=== PATIENT | female | born 1955 | race Caucasian/White ===

== ENCOUNTER 2017-06-25 02:21 | Emergency (ER) | payer OTHER, SELFPAY ==
[2017-06-25 02:21] VITALS: BP 227/101; PULSE 123; RESP 20; TEMP 39.1; O2SAT 95; BMI 38.7
[2017-06-25] MEDS: 0.9% Normal Saline 1,000 ML 1000 ML IV (02:49)
--- NOTE | 2017-06-25 02:50 | RAD_ITS ---
STUDY: X-RAY CHEST REASON FOR EXAM: Female, 61 years old. SOB TECHNIQUE: Single frontal view of the chest. COMPARISON: 06/14/2016 FINDINGS: The lungs are clear and expanded. There is no demonstrated pleural abnormality. Normal size heart. Normal mediastinum and chelo. Normal visualized pulmonary arteries. Normal visualized aortic arch and descending thoracic aorta. There are diffuse degenerative changes of the visualized thoracic spine. Left shoulder calcific tendinitis. There is no demonstrated abnormality of the visualized soft tissue structures of the upper abdomen. RAD/Chest 1 View (Portable) IMPRESSION: No acute pulmonary findings. Electronically Signed: Goyo Roldan MD at 3:26 EST Tel , Service support ,
[2017-06-25] MEDS: Ibuprofen 200 MG Tablet 400 MG PO (02:52)
[2017-06-25 02:54] LABS: Absolute Lymphocyte Count 1.61 X10^3/ul (0.83-4.51); Absolute Neutrophil Count 14.2 X10^3/uL (2.0-7.7); Basophil# 0.05 X10^3/uL; Basophil% 0.3 % (0-1); Eosinophil# 0.11 X10^3/uL; Eosinophils% 0.6 % (0-5); Hematocrit 40.6 % (37-47); Hemoglobin 13.8 g/dl (12.0-15.0); Lymphocyte # 1.61 X10^3/ul (4.0); Lymphocyte % 9.3 % (19-41); Mean Corpuscular Hgb 29.3 pg (27.0-32.0); Mean Corpuscular Volume 86.2 fL (81-99); Mean Platelet Vol. 9.4 fl (6.2-12.0); Monocyte# 1.34 X10^3/uL; Monocyte% 7.7 % (0-10); Neutrophil # 14.22 X10^3/uL (2.7-7.7); Neutrophil % 81.9 % (47-70); Platelet Count 297 K/mm3 (150-450); Red Blood Count 4.71 M/mm3 (4.2-5.4); White Blood Count 17.4 K/mm3 (4.4-11.0)
[2017-06-25 03:06] LABS: Anion Gap 11 (5-15); BUN 16 mg/dL (7-18); BUN/Creat Ratio 18.2 RATIO (10-20); Calcium,Total 9.2 mg/dL (8.5-10.1); Chloride 104 mmol/L (98-107); Creatinine, Serum 0.88 mg/dL (0.55-1.02); EST Glomerular Filtration Rate 70 mL/min (>60); Est Glom Filt Rate - Afr Amer 84 mL/min (>60); Estimated Creatinine Clearance 55.53 ml/min; Glucose 202 mg/dL (74-106); Sodium Level 137 mmol/L (136-145)
[2017-06-25 03:34] LABS: POSITIVE COUNT NO; POSITIVE DIFFERENTIAL NO; POSITIVE MORPHOLOGY NO
--- NOTE | 2017-06-25 03:46 | ED.DCSUM_ITS ---
- ER Visit Summary Date of Service: 06/25/17 Chief Complaint: Cough History of Present Illness: The patient is a 61 F with a cough for 2 days. This is associated with fever, body aches, and nausea. Nothing seems to make it better or worse. It came on gradually. She does have a history of diabetes , hypothyroidism, and rheumatoid arthritis. She takes Humira. Denies headache or change in mental status. Denies stiff neck. Denies rash. She has pain in her hands from RA, but denies any other joint pain. Denies chest pain. Denies back pain. Denies abdominal pain, nausea, vomiting, or diarrhea. Denies any urinary symptoms. Physical Examination: 102.3. Heart rate 123 and respiratory rate 20. Pulse ox 95% on room air. Blood pressure 227/101. Skin appears flushed. Patient appears uncomfortable but not toxic or in distress. Heart tachycardic but regular. Lungs clear throughout all chen. Moves all extremities. No rash. Alert and oriented. Test Results: White count 17.4. Glucose 202. Influenza test negative. Chest x -ray showed no acute findings. Emergency Department Course and Treatment: I initially suspected influenza and other viral respiratory diseases. The symptoms came on fairly abruptly with cough, fever, and aches. However, her influenza test was negative. She was treated with Motrin and her fever broke. I also gave her a fluid bolus. After about 300 cc, her heart rate is 100. We will continue the rest of the liter. Because of her history of Humira use, I did check a chest x-ray and lab work. She has a leukocytosis. Otherwise labs are unremarkable. Chest x-ray showed no acute findings and was similar to her previous x-ray. I reevaluated the patient. Her fever broke. Her blood pressure was 168/93. Heart rate was 100. She felt much better. I advised her that it sounds like her symptoms are all respiratory in nature, and this is still likely viral. I advised her that there could be other sources of infection, but the patient declined further sepsis testing like cultures and urinalysis. The patient would like to go home, she said she did not even want to come in tonight. I believe this is reasonable as she understands the risks. She seems to be doing better. We will cover with azithromycin. She may use Motrin for fever. Stay hydrated. Risks and warning signs were discussed. She can develop other infections including fungal infections. She can develop infections at other sites. Sepsis can be life-threatening. She will follow-up with her doctor early next week. If she is getting worse though, she will come back to the ER for further evaluation as soon as possible. Treatment Plan: As above Disposition: Discharged Impression: 1. Flu-like illness This note was generated with [employer] dictation software. It may contain incorrect words, spelling, and punctuation that were not noted in review of the chart prior to signing ED Disposition - Plan for ED Patient: Chief Complaint: Cold Sx Instructions: ED Upper Resp Infec Abx Tx Prescriptions: Azithromycin 250 mg PO DAILY #4 tab Referrals: Jerald Rao MD [Primary Care Provider] -
[2017-06-25] MEDS: Azithromycin 250 MG Tablet 500 MG PO (03:54)
[2017-06-25 04:21] VITALS: BP 157/56; PULSE 102; RESP 20; TEMP 38.3; O2SAT 95
== END 2017-06-25 04:22 | disposition home or self-care (01) ==
PROVIDERS: Emergency Provider Emergency Medicine; Family Provider Family Medicine; PCP Family Medicine
DX: R50.9 Fever, unspecified (principal); R05 Cough; R11.0 Nausea; M79.1 Myalgia; E11.9 Type 2 diabetes mellitus without complications; E03.9 Hypothyroidism, unspecified; K76.0 Fatty (change of) liver, not elsewhere classified; M06.9 Rheumatoid arthritis, unspecified; Z79.4 Long term (current) use of insulin; Z79.84 Long term (current) use of oral hypoglycemic drugs; Z79.899 Other long term (current) drug therapy
CPT/HCPCS: 71045; 80048; 85025; 87804; 96360; 96361; 99285; J7030; A4216

== ENCOUNTER → 2017-07-19 07:04 | Outpatient (CLI) | payer OTHER, SELFPAY ==
[2017-07-19 11:06] LABS: Microalbumin,Random Urine 32.9 mg/L (NO RANGE EST.); Microalbumin:Creatinine Ratio 29.6 mg/g CRE (<30 mg/g CRE)
[2017-07-19 11:10] LABS: ALB/GLOB Ratio 0.8 RATIO (0.9-2.4); AST(SGOT) 54 U/L (15-37); Alanine Aminotransfer ALT/SGPT 88 U/L (13-56); Albumin, Serum 3.5 g/dL (3.2-5.0); Alkaline Phosphatase 79 U/L (45-117); Anion Gap 10 (5-15); BUN 14 mg/dL (7-18); BUN/Creat Ratio 18.2 RATIO (10-20); Calcium,Total 8.8 mg/dL (8.5-10.1); Chloride 107 mmol/L (98-107); Cholesterol 235 mg/dL (200); Creatinine, Serum 0.77 mg/dL (0.55-1.02); EST Glomerular Filtration Rate 81 mL/min (>60); Est Glom Filt Rate - Afr Amer 98 mL/min (>60); Globulin 4.3 g/dL (2.2-4.2); Glucose 132 mg/dL (74-106); High Density Lipoprotein 58 mg/dL; Potassium 3.9 mmol/L (3.5-5.1); Protein, Total 7.8 g/dL (6.4-8.2); Sodium Level 139 mmol/L (136-145); Triglycerides 155 mg/dL; Very Low Density Lipoprotein 31 mg/dL (5-40)
[2017-07-19 12:09] LABS: Hemoglobin A1c 7.5 % (4.2-6.3)
== END ==
PROVIDERS: Family Provider Family Medicine; PCP Family Medicine; Visit Provider Internal Medicine Endocrinology, Diabetes & Metabolism
DX: E11.65 Type 2 diabetes mellitus with hyperglycemia (principal); E78.2 Mixed hyperlipidemia; C73 Malignant neoplasm of thyroid gland
CPT/HCPCS: 36415; 80053; 80061; 82043; 82570; 83036; 84443

== ENCOUNTER → 2017-08-10 07:17 | Outpatient (CLI) | payer OTHER, SELFPAY ==
[2017-08-10 10:49] LABS: AST(SGOT) 25 U/L (15-37); Alanine Aminotransfer ALT/SGPT 50 U/L (13-56)
== END ==
PROVIDERS: Family Provider Family Medicine; PCP Family Medicine; Visit Provider Nurse Practitioner Adult Health
DX: E11.65 Type 2 diabetes mellitus with hyperglycemia (principal)
CPT/HCPCS: 36415; 84450; 84460

== ENCOUNTER → 2017-09-14 15:55 | Outpatient (CLI) | payer OTHER, SELFPAY ==
--- NOTE | 2017-09-14 15:57 | CT_ITS ---
STUDY: CT BRAIN WITHOUT CONTRAST REASON FOR EXAM: Female, 61 years old. The disturbance. Headache. Rheumatoid arthritis. Diabetes. RADIATION DOSAGE (If Supplied By Facility): CTDIvol = ( 44.99 ) mGy, DLP = ( 745.49 ) mGycm TECHNIQUE: Transaxial CT imaging of the brain was performed without administration of intravenous contrast material. Individualized dose optimization techniques were used for this CT. COMPARISON: March 28, 2006 FINDINGS: Normal soft tissue structures. Normal calvarium. Normal size ventricles and extra-axial spaces for the patient's age. Normal white matter tracts of the cerebral hemispheres. Normal basal ganglia and thalami. Normal brainstem. Normal cerebellum. There is no intracranial hemorrhage. There are no findings of an acute ischemic infarction. Normal visualized paranasal sinuses. CT/Brain/Head without Contrast IMPRESSION: Normal unenhanced CT scan of the brain. Electronically Signed: Kalen Huerta MD at 22:22 EDT , Service support ,
== END ==
PROVIDERS: Family Provider Family Medicine; PCP Family Medicine; Visit Provider Family Medicine
DX: R26.9 Unspecified abnormalities of gait and mobility (principal); Z85.850 Personal history of malignant neoplasm of thyroid; R51 Headache
CPT/HCPCS: 70450

== ENCOUNTER 2017-09-15 11:57 | Emergency (ER) | payer OTHER, SELFPAY ==
[2017-09-15 11:58] VITALS: BP 161/91; PULSE 100; RESP 18; TEMP 36.7; O2SAT 96; BMI 39.4
[2017-09-15 12:37] VITALS: BP 183/88; PULSE 93; RESP 18; O2SAT 97
[2017-09-15 12:58] LABS: Absolute Lymphocyte Count 3.26 X10^3/ul (0.83-4.51); Absolute Neutrophil Count 6.7 X10^3/uL (2.0-7.7); Basophil# 0.06 X10^3/uL; Basophil% 0.5 % (0-1); Eosinophil# 0.47 X10^3/uL; Eosinophils% 4.1 % (0-5); Hematocrit 41.6 % (37-47); Hemoglobin 13.8 g/dl (12.0-15.0); Lymphocyte # 3.26 X10^3/ul (4.0); Lymphocyte % 28.8 % (19-41); Mean Corp Hgb Conc 33.2 g/gl (32-36); Mean Corpuscular Hgb 28.2 pg (27.0-32.0); Mean Corpuscular Volume 85.1 fL (81-99); Mean Platelet Vol. 9.3 fl (6.2-12.0); Monocyte# 0.88 X10^3/uL; Monocyte% 7.8 % (0-10); Neutrophil # 6.65 X10^3/uL (2.7-7.7); Neutrophil % 58.7 % (47-70); POSITIVE COUNT NO; POSITIVE DIFFERENTIAL NO; POSITIVE MORPHOLOGY NO; Platelet Count 321 K/mm3 (150-450); RBC Distribution Width SD 40.1 fl (35.1-43.9); Red Blood Count 4.89 M/mm3 (4.2-5.4); White Blood Count 11.3 K/mm3 (4.4-11.0)
[2017-09-15 13:15] LABS: Anion Gap 10 (5-15); BUN 16 mg/dL (7-18); Calcium,Total 9.7 mg/dL (8.5-10.1); Chloride 101 mmol/L (98-107); EST Glomerular Filtration Rate 77 mL/min (>60); Est Glom Filt Rate - Afr Amer 93 mL/min (>60); Estimated Creatinine Clearance 61.09 ml/min; Glucose 120 mg/dL (74-106); Potassium 3.4 mmol/L (3.5-5.1); Sodium Level 138 mmol/L (136-145)
--- NOTE | 2017-09-15 13:32 | NURSING ---
NO LW OR POA
[2017-09-15 13:50] VITALS: BP 157/61; PULSE 87; RESP 18
--- NOTE | 2017-09-15 14:02 | ED.DCSUM_ITS ---
- ER Visit Summary Date of Service: 09/15/17 Chief Complaint: High blood pressure History of Present Illness: The patient is a [address] Jerald Rao. She reports that her blood pressure has been labile the past [address] Rao and was put on chlorthalidone 1 week ago. States that this morning she had a headache and because of this she took her blood pressure was 230/130. She took an extra half dose (20 mg) of Accupril at 1030. She reports that her headache has improved greatly. Is now 2 out of 10 severity. She denies any other complaints. Physical Examination: Vitals: 98.1, 161/91, 100, 18, 96% room air which is not hypoxic. Afebrile. General: Well-nourished and well-developed. Head: Normocephalic atraumatic. Neck: Supple, no lymphadenopathy. No JVD. Nontender. Cardiovascular: Regular rate and rhythm. No murmurs. Respiratory: No respiratory distress. Clear to auscultation bilaterally. Abdominal: Soft, nontender, nondistended, normal bowel sounds. No guarding, rebound, or peritoneal signs. Back: Nontender. Extremities: Nontender, no edema. Skin: Normal color, no rash. Neurologic: Alert and oriented ?3. Cranial nerves II through XII are intact. Normal strength and sensation. Psych: Normal affect. Test Results: BMP is marked potassium 3.4 and glucose 120. CBC is marked for hemoglobin 11.3. Emergency Department Course and Treatment: Patient's repeat blood pressure is 157/61. She refused pain medications. She is resting comfortably. Treatment Plan: Patient was discussed with Dr. Rao. He is going to increase her Accupril from 40 mg to 60 mg a day. Follow-up with 1 week in for another exam. Disposition: To home in improved and stable condition. Impression: 1. Hypertension. This note was generated with [employer] dictation software. It may contain incorrect words, spelling, and punctuation that were not noted in review of the chart prior to signing ED Disposition - Plan for ED Patient: Disposition: Home or Assisted Living Chief Complaint: Hypertension Instructions: ED Hypertension Conf Out Of Control Referrals: Jerald Rao MD [Primary Care Provider] - 1 Week Additional Instructions: Increase quinapril to 60 mg a day.
[2017-09-15 14:09] VITALS: BP 136/67; PULSE 86; RESP 18; O2SAT 99
== END 2017-09-15 14:10 | disposition home or self-care (01) ==
LOC: ED 12:51
PROVIDERS: Emergency Provider Emergency Medicine; Family Provider Family Medicine; PCP Family Medicine
DX: I10 Essential (primary) hypertension (principal); R05 Cough; E11.9 Type 2 diabetes mellitus without complications; M06.9 Rheumatoid arthritis, unspecified; K76.0 Fatty (change of) liver, not elsewhere classified; G47.33 Obstructive sleep apnea (adult) (pediatric); Z85.850 Personal history of malignant neoplasm of thyroid; Z90.49 Acquired absence of other specified parts of digestive tract; Z79.84 Long term (current) use of oral hypoglycemic drugs; Z79.4 Long term (current) use of insulin; Z79.899 Other long term (current) drug therapy
CPT/HCPCS: 80048; 85025; 99284; A4216

== ENCOUNTER → 2017-10-19 07:00 | Outpatient (CLI) | payer OTHER, SELFPAY ==
--- NOTE | 2017-10-19 07:00 | DT_ITS ---
This patient was seen during an EMR downtime October 18, 2017 - October 25, 2017. This patient may have a combination of paper and electronic documentation or all paper documentation. All documentation is viewable within the e-chart portion of [facility] for each patient visit.
[2017-10-25 20:23] LABS: Hemoglobin A1c 7.9 % (4.2-6.3); Thyroid Stim Hormone (TSH) 0.22 uIU/mL (0.358-3.74)
[2017-10-25 20:24] LABS: ALB/GLOB Ratio 0.9 RATIO (0.9-2.4); AST(SGOT) 59 U/L (15-37); Alanine Aminotransfer ALT/SGPT 106 U/L (13-56); Albumin, Serum 3.5 g/dL (3.2-5.0); Alkaline Phosphatase 87 U/L (45-117); BUN 14 mg/dL (7-18); BUN/Creat Ratio 17.9 RATIO (10-20); Calcium,Total 9.1 mg/dL (8.5-10.1); Chloride 106 mmol/L (98-107); Cholesterol 204 mg/dL (200); Creatinine, Serum 0.78 mg/dL (0.55-1.02); EST Glomerular Filtration Rate 80 mL/min (>60); Est Glom Filt Rate - Afr Amer 97 mL/min (>60); Globulin 4.1 g/dL (2.2-4.2); Glucose 165 mg/dL (74-106); Potassium 3.8 mmol/L (3.5-5.1); Protein, Total 7.6 g/dL (6.4-8.2); Sodium Level 139 mmol/L (136-145); Triglycerides 395 mg/dL; Very Low Density Lipoprotein 79 mg/dL (5-40)
[2017-10-25 20:25] LABS: Anion Gap 11 (5-15); High Density Lipoprotein 47 mg/dL
== END ==
PROVIDERS: Family Provider Family Medicine; PCP Family Medicine; Visit Provider Internal Medicine Endocrinology, Diabetes & Metabolism
DX: E11.65 Type 2 diabetes mellitus with hyperglycemia (principal); C73 Malignant neoplasm of thyroid gland; E78.2 Mixed hyperlipidemia
CPT/HCPCS: 36415; 80053; 80061; 83036; 84432; 84443; 86800

== ENCOUNTER → 2018-01-07 15:39 | Outpatient (CLI) | payer OTHER, SELFPAY | PROVIDERS: Family Provider Family Medicine; PCP Family Medicine; Visit Provider Otolaryngology | DX: J02.9 Acute pharyngitis, unspecified (principal) | CPT/HCPCS: 87070 ==

== ENCOUNTER → 2018-01-25 07:00 | Outpatient (CLI) | payer OTHER, SELFPAY ==
[2018-01-25 10:56] LABS: ALB/GLOB Ratio 0.8 RATIO (0.9-2.4); AST(SGOT) 113 U/L (15-37); Alanine Aminotransfer ALT/SGPT 178 U/L (13-56); Albumin, Serum 3.5 g/dL (3.2-5.0); Alkaline Phosphatase 99 U/L (45-117); Anion Gap 11 (5-15); BUN 15 mg/dL (7-18); BUN/Creat Ratio 19.2 RATIO (10-20); Chloride 107 mmol/L (98-107); Cholesterol 252 mg/dL (200); Creatinine, Serum 0.78 mg/dL (0.55-1.02); EST Glomerular Filtration Rate 79 mL/min (>60); Est Glom Filt Rate - Afr Amer 96 mL/min (>60); Globulin 4.2 g/dL (2.2-4.2); Glucose 187 mg/dL (74-106); High Density Lipoprotein 49 mg/dL; Protein, Total 7.7 g/dL (6.4-8.2); Sodium Level 140 mmol/L (136-145); Triglycerides 262 mg/dL; Very Low Density Lipoprotein 52 mg/dL (5-40)
[2018-01-25 12:22] LABS: Hemoglobin A1c 7.9 % (4.2-6.3)
== END ==
PROVIDERS: Family Provider Family Medicine; PCP Family Medicine; Visit Provider Internal Medicine Endocrinology, Diabetes & Metabolism
DX: E11.65 Type 2 diabetes mellitus with hyperglycemia (principal); E78.2 Mixed hyperlipidemia; C73 Malignant neoplasm of thyroid gland
CPT/HCPCS: 36415; 80053; 80061; 83036

== ENCOUNTER 2018-01-28 17:37 | Inpatient (IN) | payer OTHER, SELFPAY ==
[2018-01-28] VITALS (7 sets, daily range): BP systolic 128–179; BP diastolic 70–100; PULSE 70–80; RESP 14–18; TEMP 36.4–37.1; O2SAT 94–99; BMI 35.4; BMI 39.6
--- NOTE | 2018-01-28 18:01 | ED.DCSUM_ITS ---
- ER Visit Summary Date of Service: 01/28/18 Chief Complaint: Hematuria History of Present Illness: The patient is a 62 F past medical history of insulin-dependent diabetes, rheumatoid arthritis and thyroid cancer. Status post cholecystectomy and thyroidectomy. Patient's had hematuria for approximately 1 week. Was seen by her primary care physician in the last several days. Was treated for UTI and given IM Ancef in the office. States today she has had nausea vomiting suprapubic discomfort. She had fever and chills a day or 2 ago but states that seemed to have resolved. She denies diarrhea. She denies dysuria. Physical Examination: The male no acute distress. Vital signs are stable afebrile. H EENT exam unremarkable moist mucous members. Neck nontender. Lungs clear to auscultation bilaterally. Heart regular rhythm no murmur rate about 70. Abdomen soft. Nondistended. Normal bowel sounds. No peritoneal signs. No signs of obstruction or distention. Mild suprapubic discomfort. Right lower quadrant unremarkable. Back mild CVA tenderness on the right side. Moving all 4 extremities. Neurovascularly intact. No edema. Neurologically awake and alert with no focal motor deficits. Test Results: CBC shows an elevated white count of 14,400. Hemoglobin 13. Gap 11. BUN and creatinine 26 and 1.39. Prior creatinine 0.8. Urinalysis shows blood no obvious signs of culture was sent. CT flank shows bilateral ureteral calculi. Bilateral hydronephrosis. Bilateral renal stones. Right renal edema consistent with either hydronephrosis or pyelonephritis. Emergency Department Course and Treatment: Patient treated with IV fluids, morphine and Zofran. Clinically appears to have a UTI may be early pyelonephritis. Treatment Plan: Patient will be admitted. She was given a second dose of morphine. She will be started on Rocephin for possible UTI. She has bilateral ureteral obstruction from stones. And has acute kidney injury from this. I spoken to the urologist on-call. Also the hospitalist. Disposition: Admission Impression: Acute flank pain secondary to bilateral ureteral calculi Bilateral hydronephrosis secondary to kidney stones Rule out right-sided pyelonephritis. Acute renal injury This note was generated with [employer] software. It may contain incorrect words, spelling, and punctuation that were not noted in review of the chart prior to signing ED Disposition - Plan for ED Patient: Chief Complaint: Complaint Referrals: Jerald Rao MD [Primary Care Provider] -
[2018-01-28 18:18] LABS: Bacteria 0 SEEN /hpf (None Seen)
[2018-01-28] MEDS: 0.9% Normal Saline 1,000 ML 1000 ML IV (18:18)
[2018-01-28] MEDS: Morphine 4 MG/ML Syringe 6 MG IV (18:18)
[2018-01-28] MEDS: Ondansetron 4 MG/2 ML Vial IV ×2 (18:18→21:33)
[2018-01-28 18:21] LABS: Glucose, Dipstick Normal (Normal); Ketone-Dipstick 5 mg/dl (Negative); Leukocyte Esterase-Dipstick 100 /ul (Negative); Nitrite-Dipstick Negative (Negative); Occult Blood-Urine 250 /ul (Negative); Protein-Dipstick 100 mg/dl (Negative); Specific Gravity, Urine 1.025 (1.002-1.030); Urine Bilirubin Dipstick Negative (Negative); Urine Clarity Cloudy (Clear); Urine Urobilinogen Normal (Normal)
[2018-01-28 18:32] LABS: Absolute Lymphocyte Count 2.18 X10^3/ul (0.83-4.51); Absolute Neutrophil Count 11.6 X10^3/uL (2.0-7.7); Basophil# 0.02 X10^3/uL; Basophil% 0.1 % (0-1); Eosinophil# 0.06 X10^3/uL; Eosinophils% 0.4 % (0-5); Hematocrit 42.3 % (37-47); Hemoglobin 13.6 g/dl (12.0-15.0); Lymphocyte # 2.18 X10^3/ul (4.0); Lymphocyte % 15.1 % (19-41); Mean Corp Hgb Conc 32.2 g/gl (32-36); Mean Corpuscular Hgb 27.4 pg (27.0-32.0); Mean Corpuscular Volume 85.3 fL (81-99); Mean Platelet Vol. 9.5 fl (6.2-12.0); Monocyte# 0.58 X10^3/uL; Neutrophil # 11.55 X10^3/uL (2.7-7.7); Neutrophil % 80.2 % (47-70); Platelet Count 304 K/mm3 (150-450); RBC Distribution Width CV 13.4 % (11.6-14.6); RBC Distribution Width SD 41.5 fl (35.1-43.9); Red Blood Count 4.96 M/mm3 (4.2-5.4); White Blood Count 14.4 K/mm3 (4.4-11.0)
[2018-01-28 18:32] LABS: Color, Urine Amber (Yellow); Red Blood Cells-Urine > 100 SEEN /hpf (0-5)
[2018-01-28 18:35] LABS: Mucous, Urine RARE /hpf (<or=2+); Squamous Epithelial Cells - UA 0-5 SEEN /hpf (5-10); White Blood Cells 0-5 SEEN /hpf (0-5)
--- NOTE | 2018-01-28 18:37 | CT_ITS ---
STUDY: CT ABDOMEN AND PELVIS WITHOUT CONTRAST REASON FOR EXAM: Female, 62 years old. Right flank pain and hematuria RADIATION DOSAGE (If Supplied By Facility): CTDIvol = ( 21.16 ) mGy, DLP = ( 1078.63 ) mGycm TECHNIQUE: Transaxial images were obtained from the dome of the diaphragm to the symphysis pubis without oral contrast, and without intravenous contrast. Sagittal and coronal images were reconstructed. Individualized dose optimization techniques were used for this CT. COMPARISON: None. FINDINGS: The visualized lung bases are unremarkable. The visualized portions of the heart are within normal limits. The liver is enlarged and fatty infiltrated. There is non-visualization of the gallbladder, which may be secondary to either contraction or a prior cholecystectomy. Normal spleen. Normal pancreas. Normal bilateral adrenal glands. There is an edematous appearance of the right kidney moderate right hydronephrosis and at least one punctate stone in the right kidney. There is a distended appearance of the right ureter. There is a stone in the mid right ureter measuring 7.9 x 2.3 mm. This is best seen on image #76 of the coronal views. There are multiple stones within the left kidney. The largest of which measures 8.5 mm. There is moderate left hydronephrosis. There is a collection of stones in the proximal left ureter measuring 1.4 x 0.5 cm. No further stones are visualized. The bladder is partially decompressed. There is a small hiatal hernia. Normal small intestine. There is moderate stool in the colon from cecum to the rectum. The appendix is visualized and appears normal. Normal abdominal aorta. Normal inferior vena cava. There are nonspecific small subcentimeter lymph nodes. Bladder is decompressed. The uterus is of normal size. There is mild lobulation of the superior aspect of the fundus suggesting probable fibroid measuring up to 2.7 x 1.3 cm. There is a small umbilical hernia containing fat. There is degenerative change present especially at the level of L4-L5 and L5-S1. At L4-L5 there is a broad disc osteophyte protrusion with moderate to severe neural foraminal narrowing record is a mild to moderate central stenosis. At L5-S1 there is a right lateral disc osteophyte causing moderate narrowing of the right neural foramen and no significant central stenosis. CT/Abdomen/Pelvis without Cont IMPRESSION: Sizable bilateral ureteral stones. Moderate to severe right renal edema cannot exclude superimposed infection. Moderate bilateral hydronephrosis. Small uterine fibroid. Hepatic steatosis hepatic enlargement Status post cholecystectomy. Degenerative change thoracolumbar spine most significant L4-L5. Electronically Signed: Kari Dugan MD at 19:19 EDT Tel , Service support ,
[2018-01-28 18:38] LABS: POSITIVE COUNT NO; POSITIVE DIFFERENTIAL NO; POSITIVE MORPHOLOGY NO
[2018-01-28 18:47] LABS: Anion Gap 11 (5-15); BUN 26 mg/dL (7-18); BUN/Creat Ratio 18.7 RATIO (10-20); Calcium,Total 9.7 mg/dL (8.5-10.1); Chloride 105 mmol/L (98-107); Creatinine, Serum 1.39 mg/dL (0.55-1.02); EST Glomerular Filtration Rate 41 mL/min (>60); Est Glom Filt Rate - Afr Amer 49 mL/min (>60); Estimated Creatinine Clearance 34.71 ml/min; Glucose 247 mg/dL (74-106); Potassium 4.3 mmol/L (3.5-5.1); Sodium Level 137 mmol/L (136-145)
--- NOTE | 2018-01-28 19:37 | PCM.HP.STD ---
Problem List (1) Bilateral hydronephrosis Status: Acute (2) Bilateral ureteral calculi Status: Acute (3) Acute pyelonephritis Status: Acute History of Present Illness Date of Admission: 01/28/18 Chief Complaint: Gross hematuria and pelvic pain ?1 week. 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 Also she has bilateral flank pain with right-sided worse than the left. She was given IM injection of antibiotics and started on Keflex by her PCP. However because of progressively worsening symptoms she came to emergency department. Associated with her symptoms is nausea, chills and anorexia. Emergency department doctor had a conversation with Dr. Gutierrez, who is willing to see patient in a.m. She reports a previous history of gross hematuria that was attributed to her rheumatoid arthritis. At that time she had no pain. At admission CT of abdomen and pelvis showed sizable bilateral ureteral stone; moderate to severe right renal edema with inability to exclude superimposed infection; and moderate bilateral hydronephrosis. Past Medical History Medical History: Medical History (Last Updated 01/29/18 @ 04:23 by Yoin Stein MD) Insulin dependent diabetes mellitus E11.9, Z79.4 Papillary thyroid carcinoma C73 Rheumatoid arthritis M06.9 Allergies BP MEDS Adverse Reaction (Uncoded 01/28/18 17:40) Other Home Medications: Ambulatory Orders Medication Instructions Recorded Adalimumab [Humira] 1 dose SQ QWEEK 06/14/16 Quinapril HCl [Accupril] 40 mg PO .COMPLEX 06/14/16 Glimepiride [Amaryl] 8 mg PO DAILY 06/25/17 Insulin Glargine,Hum.rec.anlog 60 unit SQ QHS 06/25/17 [[place] Solostar] Levothyroxine [Synthroid] 150 mcg PO DAILY 06/25/17 Metformin HCl 2,000 mg PO BID 06/25/17 Chlorthalidone 25 mg PO DAILY PRN PRN 09/15/17 Cholecalciferol (Vitamin D3) 20,000 unit PO DAILY 01/28/18 [Vitamin D3] Omeprazole [Omeprazole] 40 mg PO DAILY 01/28/18 Surgical History: - - Thyroidectomy Psychiatric History: No pertinent psych hx Lives: Alone Smoking Status: Never smoker Alcohol: None - *Family History Maternal History Items: Cancer - colon, Diabetes Paternal History Items: Cancer - colon, Diabetes, Heart Disease Review of Systems Constitutional: Reports: Anorexia, Chills HEENT: Denies: Head Aches, Sinus Congestion, Sinus Drainage Cardiovascular: Denies: Chest Pain, Palpitations Respiratory: Denies: Cough, Shortness of breath at rest, Sputum production Gastrointestinal: Reports: Nausea, Vomiting, - - Pelvic pain Genitourinary: Reports: - - Gross hematuria. Denies: Incontinence Musculoskeletal: Denies: Joint Pain, Joint Tenderness Skin: Denies: Rash, Wounds Neurological: Denies: Numbness, Tingling, Focal weakness Psychiatric: Denies: Anxiety, Depression, Homicidal Ideations, Suicidal Ideations Hematologic/ Lymphatic: Denies: Easy Bruising, Easy Bleeding VTE Information - Inpt Only VTE Present on Admission: No VTE Mechan Device Prophylaxis: None VTE Pharm Prophylaxis ordered?: Yes Patient Problems: Active and Suspected Problems (Last Updated 01/29/18 @ 04:23 by Yoni Stein MD) Bilateral hydronephrosis (Acute) Bilateral ureteral calculi (Acute) Acute pyelonephritis (Acute) - Physical Exam General: Alert, Oriented x3, Cooperative HEENT: Atraumatic, PERRLA, EOMI, Normocephalic Neck: Supple, No JVD, Negative Carotid Bruits Lungs: Clear to auscultation, Normal air movement Cardiovascular: Regular rate, No murmurs Abdomen: Bowel Sounds Present, Soft, Tender - Suprapubic area; right flank (mild) Extremities: No edema, Capillary Refill Less than 3 Seconds Skin: No rashes, No breakdown Musculoskeletal: No Tenderness to Palpation of Joints or Extremities Neurological: Cranial nerves II-XII grossly intact Psych/Mental Status: Normal Affect, Appropriate Vital Signs Temp Pulse Resp BP Pulse Ox 97.6 F L 75 18 143/89 H 99 01/28/18 17:38 01/28/18 17:38 01/28/18 17:38 01/28/18 17:38 01/28/18 17:38 Oxygen Delivery Method Room Air Weight: 90.718 kg Body Mass Index (BMI) 35.4 Finger Stick Blood Glucose 275 Laboratory Tests Past 24 Hrs 01/28/18 01/28/18 01/28/18 18:10 18:15 18:15 WBC 14.4 H RBC 4.96 Hgb 13.6 Hct 42.3 MCV 85.3 MCH 27.4 MCHC 32.2 RDW 13.4 RDW Differential 41.5 Plt Count 304 MPV 9.5 Immature Gran % (Auto) 0.200 Neut % (Auto) 80.2 H Lymph % (Auto) 15.1 L [place] % (Auto) 4.0 Eos % (Auto) 0.4 Baso % (Auto) 0.1 Absolute Neuts (auto) 11.6 H Absolute Lymphs (auto) 2.18 Total Counted Not Reportable Sodium 137 Potassium 4.3 Chloride 105 Carbon Dioxide 21.0 Anion Gap 11 BUN 26 H Creatinine 1.39 H Estim Creat Clear Calc 34.71 Est GFR (MDRD) Af Amer 49 L Est GFR (MDRD) Non-Af 41 L BUN/Creatinine Ratio 18.7 Glucose 247 H Calcium 9.7 Urine Color Denisse Urine Clarity Cloudy Urine pH 5.0 Ur Specific [place] 1.025 Urine Protein 100 H Urine Glucose (UA) Normal Urine Ketones 5 H Urine Occult Blood 250 H Urine Nitrite Negative Urine Bilirubin Negative Urine Urobilinogen Normal Ur Leukocyte Esterase 100 H Urine RBC > 100 SEEN Urine WBC 0-5 SEEN Ur Squamous Epith Cells 0-5 SEEN Urine Bacteria 0 SEEN Urine Mucus RARE Assessment/Plan All Active Problems (Last Updated 01/29/18 @ 04:23 by Yoni Stein MD) Bilateral hydronephrosis (Acute) Bilateral ureteral calculi (Acute) Acute pyelonephritis (Acute) The patient is a 62 year old F with a significant history of rheumatoid arthritis, insulin-dependent diabetes mellitus; recurrent papillary thyroid carcinoma after thyroidectomy and radioactive iodine therapy; hypertension who presents with gross hematuria; nausea, chills; anorexia; pelvic pain; bilateral flank pain ?1 week and found to have leukocytosis and found to have radiographic findings of sizable bilateral ureteral stone; moderate to severe right renal edema with inability to exclude superimposed infection; and moderate bilateral hydronephrosis. Acute bilateral nephrolithiasis with bilateral hydronephrosis and probable pyelonephritis Supportive treatment with IV fluids, IV narcotics and antiemetics. Started on Rocephin; continued Flomax ordered Urology consult to optimize management We will keep n.p.o. for now Acute kidney injury Likely due to obstructive nephropathy We will hold chlorthalidone and quinapril Urology consult as above. Hypertension Blood pressure not at goal at admission Chlorthalidone and quinapril held because of IGLESIA Scheduled hydralazine As needed labetalol. Diabetes mellitus Blood pressure not at goal at the time of admission Metformin held due to increased risks of lactic acidosis while inpatient. Amaryl held due to insulin increased risk of hypoglycemia while n.p.o. Correction scale insulin ordered. Rheumatoid arthritis on home adalimumab weekly Continue when due. Hypothyroidism Secondary to thyroidectomy due to papillary thyroid carcinoma and radioactive treatment Synthroid continued. 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 DVT prophylaxis With subcutaneous heparin. Code Visit Inpatient E&M: 84103 Init Hosp L3
[2018-01-28] MEDS: morphine 8 MG/ML Syringe 6 MG IV (20:03)
[2018-01-28] MEDS: Ceftriaxone 1 GM/50 ML BAG IV (20:06)
[2018-01-28] MEDS: 0.9% Normal Saline 1,000 ML 75 ML IV (21:12)
[2018-01-28] MEDS: Heparin Injection (Vial) 5,000 UNIT/ML VIAL 5000 UNIT SC (21:15)
[2018-01-28] MEDS: Senna/Docusate Sodium 1 Tablet 2 TABLET PO (21:15)
[2018-01-28] MEDS: Tamsulosin HCl 0.4 MG Capsule PO (21:15)
[2018-01-28 21:21] LABS: Bedside Glucose 254 mg/dL (70-110)
[2018-01-28] MEDS: Insulin Lispro 100 UNIT/ML INSULN.PEN SQ (21:21)
[2018-01-28] MEDS: Morphine 2 MG/ML Syringe IV (21:37)
[2018-01-28] MEDS: hydrALAZINE 25 MG Tablet PO (21:57)
[2018-01-29] VITALS (12 sets, daily range): BP systolic 123–179; BP diastolic 58–100; PULSE 70–83; RESP 16–18; TEMP 36.4–36.9; O2SAT 92–100; BMI 39.6
[2018-01-29] MEDS: Morphine 2 MG/ML Syringe IV ×2 (01:52→05:41)
[2018-01-29 02:01] LABS: Bedside Glucose 236 mg/dL (70-110)
[2018-01-29] MEDS: Insulin Lispro 100 UNIT/ML INSULN.PEN SQ (02:05)
--- NOTE | 2018-01-29 06:00 | EKG12_ITS ---
Test Reason : PRE OP Blood Pressure : / mmHG Vent. Rate : 075 BPM Atrial Rate : 075 BPM P-R Int : 162 ms QRS Dur : 086 ms QT Int : 390 ms P-R-T Axes : 023 026 024 degrees QTc Int : 435 ms Normal sinus rhythm Normal ECG When compared with ECG of 14-JUN-2016 23:08, No significant change was found Confirmed by CYNTHIA GOMEZ, LISA ([id number]), associate editor CARLOS ORDONEZ ([id number] on 02/11/2018 3:05:42 PM Referred By: Robbi Larkin Confirmed By:LISA MARIE MD
[2018-01-29 06:21] LABS: Bedside Glucose 161 mg/dL (70-110)
[2018-01-29 07:04] LABS: Absolute Lymphocyte Count 2.84 X10^3/ul (0.83-4.51); Basophil# 0.01 X10^3/uL; Basophil% 0.1 % (0-1); Eosinophil# 0.01 X10^3/uL; Eosinophils% 0.1 % (0-5); Hematocrit 38.6 % (37-47); Hemoglobin 12.7 g/dl (12.0-15.0); Lymphocyte # 2.84 X10^3/ul (4.0); Lymphocyte % 21.6 % (19-41); Mean Corp Hgb Conc 32.9 g/gl (32-36); Mean Corpuscular Hgb 28.3 pg (27.0-32.0); Mean Platelet Vol. 9.9 fl (6.2-12.0); Monocyte# 1.23 X10^3/uL; Monocyte% 9.4 % (0-10); Neutrophil # 9.02 X10^3/uL (2.7-7.7); Neutrophil % 68.6 % (47-70); Platelet Count 292 K/mm3 (150-450); RBC Distribution Width CV 13.2 % (11.6-14.6); RBC Distribution Width SD 40.8 fl (35.1-43.9); Red Blood Count 4.49 M/mm3 (4.2-5.4); White Blood Count 13.1 K/mm3 (4.4-11.0)
[2018-01-29 07:06] LABS: POSITIVE COUNT NO; POSITIVE DIFFERENTIAL NO; POSITIVE MORPHOLOGY NO
[2018-01-29 07:29] LABS: Anion Gap 9 (5-15); BUN 29 mg/dL (7-18); BUN/Creat Ratio 18.1 RATIO (10-20); Chloride 107 mmol/L (98-107); EST Glomerular Filtration Rate 35 mL/min (>60); Est Glom Filt Rate - Afr Amer 42 mL/min (>60); Estimated Creatinine Clearance 30.16 ml/min; Glucose 181 mg/dL (74-106); Potassium 4.2 mmol/L (3.5-5.1); Sodium Level 140 mmol/L (136-145)
[2018-01-29 07:56] LABS: Partial Thromboplast Time 29.4 Seconds (24.1-36.2)
[2018-01-29] MEDS: Ceftriaxone 1 GM/50 ML BAG IV (08:33)
--- NOTE | 2018-01-29 09:46 | US_ITS ---
STUDY: RENAL ULTRASOUND -Limited kidneys only. REASON FOR EXAM: Female, 62 years old. Acute renal failure TECHNIQUE: Ultrasound evaluation of the kidneys was performed with real-time and static gates-scale imaging. COMPARISON: January 28, 2018 CT scan abdomen and pelvis FINDINGS: RIGHT KIDNEY: Normal location of the right kidney, which is normal in size. The right kidney measures 7.9 x 5.1 x 5.8 cm. There is a normal cortex of the right kidney. The renal cortex measures 1.5 cm. There is no right renal mass or cyst. There are no right renal calculi. There is minimal hydronephrosis of the right kidney. LEFT KIDNEY: Normal location of the left kidney, which is normal in size. The left kidney measures 13.6 x 6.4 x 5.9 cm. There is a normal cortex of the left kidney. The renal cortex measures 1.4 cm. There is no left renal mass or cyst. There are left-sided renal stones. There is a calcification measuring 2.4 mm seen on image #39. There is an extra-renal pelvis of the left kidney. There is no distention of the renal calyces. US/Kidney and Bladder IMPRESSION: Improved bilateral kidneys with minimal right hydronephrosis visualized and trace left side pelviectasis and/or extrarenal pelvis. Electronically Signed: Kari Dugan MD at 15:43 EDT Tel , Service support ,
--- NOTE | 2018-01-29 09:50 | PCM.CONS.GEN ---
Problem List (1) Bilateral hydronephrosis Status: Acute (2) Bilateral ureteral calculi Status: Acute (3) Acute pyelonephritis Status: Acute Reason for Consult Date of Consultation: 01/29/18 History of Present Illness: The patient is a 62 year old F with no known history of stone disease who presented to the emergency room with acute onset abdominal and flank discomfort. She has a known history of diabetes and RA and is taking Humira. She was evaluated with laboratory studies and a CT scan which revealed bilateral ureteral calculi with hydronephrosis. This is the reason for consultation. Currently she is comfortable in bed, no acute distress and anxious to proceed with intervention. Past Medical History Medical History: Medical History (Last Reviewed 01/29/18 @ 09:52 by Nandini Gutierrez MD) Insulin dependent diabetes mellitus E11.9, Z79.4 Papillary thyroid carcinoma C73 Rheumatoid arthritis M06.9 Allergies BP MEDS Adverse Reaction (Uncoded 01/28/18 17:40) Other Home Medications: Ambulatory Orders Medication Instructions Recorded Adalimumab [Humira] 1 dose SQ QWEEK 06/14/16 Quinapril HCl [Accupril] 40 mg PO .COMPLEX 06/14/16 Glimepiride [Amaryl] 8 mg PO DAILY 06/25/17 Insulin Glargine,Hum.rec.anlog 60 unit SQ QHS 06/25/17 [Toujeo Solostar] Levothyroxine [Synthroid] 150 mcg PO DAILY 06/25/17 Metformin HCl 2,000 mg PO BID 06/25/17 Chlorthalidone 25 mg PO DAILY PRN PRN 09/15/17 Cholecalciferol (Vitamin D3) 20,000 unit PO DAILY 01/28/18 [Vitamin D3] Omeprazole [Omeprazole] 40 mg PO DAILY 01/28/18 Surgical History: - - Thyroidectomy Psychiatric History: No pertinent psych hx Lives: Alone Smoking Status: Never smoker Alcohol: None - *Family History Maternal History Items: Cancer - colon, Diabetes Paternal History Items: Cancer - colon, Diabetes, Heart Disease Review of Systems Constitutional: Reports: Fever Eyes: Denies: Vision Change HEENT: Denies: Difficulty Hearing, Difficulty Swallowing Cardiovascular: Denies: Chest Pain Respiratory: Denies: Shortness of Breath Gastrointestinal: Reports: Abdominal Pain, Nausea Genitourinary: Denies: Dysuria Musculoskeletal: Reports: - - symptoms related to RA. Skin: Denies: Rash Patient Problems: Active and Suspected Problems (Last Reviewed 01/29/18 @ 09:52 by Nandini Gutierrez MD) Bilateral hydronephrosis (Acute) Bilateral ureteral calculi (Acute) Acute pyelonephritis (Acute) - Physical Exam General: Alert, Oriented x3, Cooperative, No apparent distress HEENT: Atraumatic, Normocephalic Oral: Dry Mucosa Neck: Supple, Trachea Midline Lungs: Normal air movement Cardiovascular: Regular Rhythm Abdomen: Soft, Non Tender, Non-Distended, - Extremities: No Calf Tenderness Skin: No rashes Musculoskeletal: No Muscle Wasting Neurological: Cranial nerves II-XII grossly intact, Neuro grossly intact Psych/Mental Status: Normal Affect, Appropriate Vital Signs Temp Pulse Resp BP Pulse Ox 97.8 F 73 18 123/58 H 100 01/29/18 07:47 01/29/18 07:47 01/29/18 07:47 01/29/18 07:47 01/29/18 07:47 Oxygen Delivery Method Room Air Weight: 100.698 kg Body Mass Index (BMI) 39.6 Intake and Output for Last 24 Hours 01/27/18 01/28/18 01/29/18 23:59 23:59 23:59 Intake Total 977 / 977 Output Total 475 / 475 Balance 502 / 502 Laboratory Tests Past 24 Hrs 01/29/18 01/29/18 01/29/18 06:21 06:21 06:21 WBC 13.1 H RBC 4.49 Hgb 12.7 Hct 38.6 MCV 86.0 MCH 28.3 MCHC 32.9 RDW 13.2 RDW Differential 40.8 Plt Count 292 MPV 9.9 Immature Gran % (Auto) 0.200 Neut % (Auto) 68.6 Lymph % (Auto) 21.6 [place] % (Auto) 9.4 Eos % (Auto) 0.1 Baso % (Auto) 0.1 Absolute Neuts (auto) 9.0 H Absolute Lymphs (auto) 2.84 Total Counted Not Reportable APTT 29.4 Sodium 140 Potassium 4.2 Chloride 107 Carbon Dioxide 24.0 Anion Gap 9 BUN 29 H Creatinine 1.60 H Estim Creat Clear Calc 30.16 Est GFR (MDRD) Af Amer 42 L Est GFR (MDRD) Non-Af 35 L BUN/Creatinine Ratio 18.1 Glucose 181 H Hemoglobin A1c Calcium 9.0 01/29/18 06:21 WBC RBC Hgb Hct MCV MCH MCHC RDW RDW Differential Plt Count MPV Immature Gran % (Auto) Neut % (Auto) Lymph % (Auto) [place] % (Auto) Eos % (Auto) Baso % (Auto) Absolute Neuts (auto) Absolute Lymphs (auto) Total Counted APTT Sodium Potassium Chloride Carbon Dioxide Anion Gap BUN Creatinine Estim Creat Clear Calc Est GFR (MDRD) Af Amer Est GFR (MDRD) Non-Af BUN/Creatinine Ratio Glucose Hemoglobin A1c 8.0 H Calcium POC Glucose 01/29/18 01/29/18 01/28/18 06:13 01:58 21:11 POC Glucose 161 H 236 H 254 H Assessment/Plan All Active Problems (Last Reviewed 01/29/18 @ 09:52 by Nandini Gutierrez MD) Bilateral hydronephrosis (Acute) Bilateral ureteral calculi (Acute) Acute pyelonephritis (Acute) Proceed with cystoscopy and bilateral ureteral stent insertion. Stone treatment and a later date. Also need 24 hour urine and change of diet for future prevention of stones. Complete antibiotics and await culture results. I discussed the risks, benefits and alternatives to surgical intervention with the patient and her family at bedside. She understood the risks including that of anesthesia, bleeding, infection and injury. She agrees to proceed.
--- NOTE | 2018-01-29 10:23 | PCM.IMDPSTOP ---
Problem List (1) Bilateral hydronephrosis Status: Acute (2) Bilateral ureteral calculi Status: Acute (3) Acute pyelonephritis Status: Acute Immediate Post-Op Note Date of Procedure: 01/29/18 Primary Surgeon/Physician: Nandini Gutierrez MD service dog trainer: Nandini Gutierrez Pre-Operative Diagnosis: bilateral ureteral calculi, hydronephrosis, pyelonephritis Post-Operative Diagnosis: same Surgery/Procedure Performed:: cystoscopy, bilateral ureteral stent insertion. Description of Surgical Findings:: significant debris throughout the urinary system bilaterally. stents inserted without difficulty. repeat urine culture sent after stents inserted. Estimated Blood Loss: 2-3cc. Specimen's removed: urine for culture Type of Anesthesia:: MAC Special Medications: rocephin - Admit VTE Documentation VTE Present on Admission: Yes VTE Mechan Device Prophylaxis: SCD's VTE Pharm Prophylaxis ordered?: No Reason prophylaxis not ordered:: Treatment Not Indicated
--- NOTE | 2018-01-29 10:27 | OP.PN_ITS ---
Problem List (1) Bilateral hydronephrosis Status: Acute (2) Bilateral ureteral calculi Status: Acute (3) Acute pyelonephritis Status: Acute Immediate Post-Op Note Date of Procedure: 01/29/18 Primary Surgeon/Physician: Nandini Gutierrez MD records management coordinator: Nandini Gutierrez Pre-Operative Diagnosis: bilateral ureteral calculi, hydronephrosis, pyelonephritis Post-Operative Diagnosis: same Surgery/Procedure Performed:: cystoscopy, bilateral ureteral stent insertion. Description of Surgical Findings:: significant debris throughout the urinary system bilaterally. stents inserted without difficulty. repeat urine culture sent after stents inserted. Estimated Blood Loss: 2-3cc. Specimen's removed: urine for culture Type of Anesthesia:: MAC Special Medications: rocephin - Admit VTE Documentation VTE Present on Admission: Yes VTE Mechan Device Prophylaxis: SCD's VTE Pharm Prophylaxis ordered?: No Reason prophylaxis not ordered:: Treatment Not Indicated
[2018-01-29 11:50] LABS: Bedside Glucose 91 mg/dL (70-110)
[2018-01-29] MEDS: Senna/Docusate Sodium 1 Tablet 2 TABLET PO ×2 (11:51→20:52)
[2018-01-29] MEDS: Pantoprazole Sodium 40 MG Tablet PO (11:51)
--- NOTE | 2018-01-29 13:23 | PN_ITS ---
Patient Problems: Active and Suspected Problems (Last Reviewed 01/29/18 @ 09:52 by Nandini Gutierrez MD) Bilateral hydronephrosis (Acute) Bilateral ureteral calculi (Acute) Acute pyelonephritis (Acute) Subjective: Patient was admitted with UTI with pyelonephritis. Was having bilateral flank pain with radiation from loin to groin, worse on the left side. Fever with chills. He was taken to the OR and had cystoscopy with bilateral ureteric stent. Vitals/I&O's: Vital Signs Temp Pulse Resp BP Pulse Ox 97.7 F L 82 18 151/60 H 100 01/29/18 11:18 01/29/18 11:18 01/29/18 11:18 01/29/18 11:18 01/29/18 11:18 Oxygen Flow Rate (L/min) 2 Oxygen Delivery Method Room Air Weight: 222 lb 0.017 oz Body Mass Index (BMI) 39.6 Intake and Output for Last 24 Hours 01/27/18 01/28/18 01/29/18 23:59 23:59 23:59 Intake Total 2145 / 2145 Output Total 775 / 775 Balance 1370 / 1370 General: Alert, Oriented x3, Cooperative HEENT: Atraumatic, PERRLA, EOMI, Normocephalic Neck: Supple, No JVD, Negative Carotid Bruits Lungs: Clear to auscultation, Normal air movement Cardiovascular: Regular rate, Normal S1, Normal S2, No murmurs Abdomen: Bowel Sounds Present, Soft, Non Tender, Non-Distended Extremities: No edema, Capillary Refill Less than 3 Seconds Skin: No rashes, No breakdown Musculoskeletal: No Tenderness to Palpation of Joints or Extremities Neurological: Cranial nerves II-XII grossly intact Psych/Mental Status: Normal Affect, Appropriate Laboratory Results 01/28/18 21:11: POC Glucose 254 H 01/29/18 01:58: POC Glucose 236 H 01/29/18 06:13: POC Glucose 161 H 01/29/18 06:21: WBC 13.1 H, RBC 4.49, Hgb 12.7, Hct 38.6, MCV 86.0, MCH 28.3, MCHC 32.9, RDW 13.2, RDW Differential 40.8, Plt Count 292, MPV 9.9, Immature Gran % (Auto) 0.200, Neut % (Auto) 68.6, Lymph % (Auto) 21.6, [place] % (Auto) 9.4 , Eos % (Auto) 0.1, Baso % (Auto) 0.1, Absolute Neuts (auto) 9.0 H, Absolute Lymphs (auto) 2.84, Total Counted Not Reportable 01/29/18 06:21: Sodium 140, Potassium 4.2, Chloride 107, Carbon Dioxide 24.0, Anion Gap 9, BUN 29 H, Creatinine 1.60 H, Estim Creat Clear Calc 30.16, Est GFR (MDRD) Af Amer 42 L, Est GFR (MDRD) Non-Af 35 L, BUN/Creatinine Ratio 18.1, Glucose 181 H, Calcium 9.0 01/29/18 06:21: APTT 29.4 01/29/18 06:21: Hemoglobin A1c 8.0 H 01/29/18 11:16: POC Glucose 91 Current Medications Bisacodyl (Dulcolax) 5 mg PO DAILY PRN PRN PRN Reason: Constipation Cholecalciferol (Vitamin D) 20,000 unit PO DAILY [facility] Last Admin: 01/29/18 11:52 Dose: Not Given Dextrose (D50w Syringe) 0 gm IV X1 PRN; Protocol PRN Reason: Hypoglycemia Glucagon () 1 mg IM .X1 PRN PRN Reason: Hypoglycemia Heparin Sodium (Porcine) (Heparin Na) 5,000 unit SC Q8 [facility] Last Admin: 01/29/18 02:29 Dose: Not Given Hydralazine HCl (Apresoline) 50 mg PO TID [facility] Last Admin: 01/29/18 06:01 Dose: Not Given Sodium Chloride () 1,000 mls @ 75 mls/hr IV .[id number] [facility] Last Admin: 01/28/18 21:12 Dose: 75 mls/hr Ceftriaxone Sodium (Rocephin) 1 gm in 50 mls @ 100 mls/hr IV Q24H [facility] Last Admin: 01/29/18 08:33 Dose: 100 mls/hr Sodium Chloride () 250 mls @ 15 mls/hr IV .[id number] PRN PRN Reason: SALINE FLUSH Insulin Glargine (Lantus (Bkc)) 60 units SC QHS [facility] Last Admin: 01/28/18 21:15 Dose: 60 u Insulin Human Lispro (Humalog Kwikpen (Bkc)) 0 unit SQ Q4 TANA PRN Reason: Protocol Last Admin: 01/29/18 11:17 Dose: Not Given Labetalol HCl (Trandate) 10 mg IV Q4H PRN PRN PRN Reason: sbp >160 Levothyroxine Sodium (Synthroid) 150 mcg PO DAILY@0600 [facility] Last Admin: 01/29/18 06:01 Dose: Not Given Magnesium Hydroxide (Milk Of Magnesia) 30 ml PO DAILY PRN PRN PRN Reason: Constipation Morphine Sulfate () 1 - 2 mg IV Q4H PRN PRN PRN Reason: SEVERE PAIN (6-10/10) Last Admin: 01/29/18 05:41 Dose: 2 mg Non-Formulary Medication (Adalimumab) 1 dose SQ QWEEK [facility] Ondansetron HCl (Zofran) 4 mg IV Q8H PRN PRN PRN Reason: Nausea Last Admin: 01/28/18 21:33 Dose: 4 mg Oxycodone HCl (Oxyir) 5 mg PO Q4H PRN PRN PRN Reason: Moderate Pain (pain scale 4-5) Pantoprazole Sodium (Protonix) 40 mg PO DAILY [facility] Last Admin: 01/29/18 11:51 Dose: 40 mg Senna/Docusate Sodium (Senokot-S, Carito-Colace) 2 tablet PO BID [facility] Last Admin: 01/29/18 11:51 Dose: 2 tablet Sodium Chloride () 5 - 30 ml IV UD PRN PRN Reason: SALINE FLUSH Tamsulosin HCl (Flomax) 0.4 mg PO DAILY@1730 [facility] Last Admin: 01/28/18 21:15 Dose: 0.4 mg Zolpidem Tartrate (Ambien (Generic)) 5 mg PO QHS PRN PRN PRN Reason: INSOMNIA Medical Necessity - Tobacco Use Smoking Status: Never smoker Assessment/Plan All Active Problems (Last Reviewed 01/29/18 @ 09:52 by Nandini Gutierrez MD) Bilateral hydronephrosis (Acute) Bilateral ureteral calculi (Acute) Acute pyelonephritis (Acute) The patient is a 62 year old F with a significant history of rheumatoid arthritis, insulin-dependent diabetes mellitus; recurrent papillary thyroid carcinoma after thyroidectomy and radioactive iodine therapy; hypertension but no significant history of kidney stone disease admitted with gross hematuria; nausea, chills; anorexia; pelvic pain; bilateral flank pain ?1 week and found to have leukocytosis and found to have radiographic findings on CT scan of sizable bilateral ureteral stone; moderate to severe right renal edema with i superimposed infection; and moderate bilateral hydronephrosis. The patient had cystoscopy and bilateral ureteric stent placed. 1. Acute bilateral ureteric stone complicating bilateral hydronephrosis and pyelonephritis consistent with obstructive uropathy: Patient was admitted on the regular floor. On IV Rocephin, IV fluid, narcotics and antiemetics. Flomax was ordered. Urologist was consulted.Dr. Gutierrez had bilateral retrograde stent inserted and advised stone treatment later on probably after 2 weeks. Patient wants to go home. Urine culture is pending 2. Other chronic comorbidities include hypertension, diabetes mellitus type 2, rheumatoid arthritis on home adalimumab weekly, hypothyroidism secondary to thyroidectomy due to papillary thyroid carcinoma and radioactive therapy: Home medication reconciliation done. DVT prophylaxis on subcutaneous heparin. In view of severity of infection bilateral pyelonephritis with UTI, postobstructive uropathy with obstructive bilateral ureteric stone, I suggested she needs at least 2-3 days of IV antibiotics and preliminary urine culture report in order for safe home discharge as he agreed. Code Visit Inpatient E&M: [id number] [facility] L3
[2018-01-29 14:51] LABS: Bedside Glucose 116 mg/dL (70-110)
--- NOTE | 2018-01-29 16:40 | CASEMGMT ---
SEE KLAUDIA FELIX ASSESS LINK: D/C PLAN: HOME. Intro role to KLAUDIA FELIX. Pt states is independent @ home, lives alone, uses no DME, and denies needs of any. Pt wishes to return home and denies any questions or needs at this time. CM to follow for any further discharge planning needs that may arise. Octavia CARRASCON KLAUDIA FELIX
[2018-01-29] MEDS: Tamsulosin HCl 0.4 MG Capsule PO (16:54)
[2018-01-29 18:10] LABS: Bedside Glucose 175 mg/dL (70-110)
[2018-01-29] MEDS: hydrALAZINE 25 MG Tablet 50 MG PO (20:51)
[2018-01-29] MEDS: Heparin Injection (Vial) 5,000 UNIT/ML VIAL 5000 UNIT SC (20:52)
--- NOTE | 2018-01-29 21:30 | NURSING ---
Pt c/o itching on bilat arms and legs, no hives. No resp distress noted. Lungs CTA. Texted Dr. Vallejo. New order for hydroxazine 25mg po q6hrs prn itching.
[2018-01-29] MEDS: hydrOXYzine PAM 25 MG Capsule PO (22:12)
[2018-01-29 22:15] LABS: Bedside Glucose 145 mg/dL (70-110)
[2018-01-30 02:09] VITALS: BP 129/60; PULSE 70; RESP 16; TEMP 37.1; O2SAT 97
[2018-01-30 02:11] LABS: Bedside Glucose 120 mg/dL (70-110)
[2018-01-30] MEDS: Levothyroxine 150 MCG Tablet PO (06:21)
[2018-01-30 06:23] VITALS: BP 167/96; PULSE 70
[2018-01-30] MEDS: hydrALAZINE 25 MG Tablet 50 MG PO (06:23)
[2018-01-30] MEDS: 0.9% Normal Saline 1,000 ML 75 ML IV (06:29)
[2018-01-30 06:30] LABS: Bedside Glucose 96 mg/dL (70-110)
[2018-01-30 07:55] VITALS: O2SAT 97
[2018-01-30] MEDS: oxyCODONE 5 MG Tablet PO (08:16)
[2018-01-30] MEDS: Ceftriaxone 1 GM/50 ML BAG IV (08:17)
[2018-01-30] MEDS: Senna/Docusate Sodium 1 Tablet 2 TABLET PO (08:18)
[2018-01-30] MEDS: Pantoprazole Sodium 40 MG Tablet PO (08:18)
[2018-01-30 08:32] VITALS: BP 159/71; PULSE 77; RESP 18; TEMP 36.7; O2SAT 96
--- NOTE | 2018-01-30 11:30 | PCM.DC ---
- Discharge Diagnoses Current Active Problems: Current Active and Chronic Problems (Last Reviewed 01/29/18 @ 09:52 by Nandini Gutierrez MD) Bilateral hydronephrosis (Acute) Bilateral ureteral calculi (Acute) Acute pyelonephritis (Acute) You will use the following diet at home:: Calorie/Carbohydrate Controlled (specify 1200, 1400, etc) - 1800 ADA diet, Cardiac Discharge Activity: May not drive while taking narcotic pain medications. Call your doctor if you observe: Fever of 101 or Higher, Inability to urinate, - - Blood in the urine or flank pain Allergies/Adverse Reactions: Allergies BP MEDS Adverse Reaction (Uncoded 01/28/18 17:40) Other Medications to take at Discharge Adalimumab [Humira] 1 dose SQ QWEEK 06/14/16 Insulin Glargine,Hum.rec.anlog [Toujeo Solostar] 60 unit SQ QHS 06/25/17 Levothyroxine [Synthroid] 150 mcg PO DAILY 06/25/17 Cholecalciferol (Vitamin D3) [Vitamin D3] 20,000 unit PO DAILY 01/28/18 Omeprazole 40 mg PO DAILY 01/28/18 Amlodipine [Norvasc] 5 mg PO DAILY #30 tab 01/30/18 Cefadroxil [Duracef] 500 mg PO BID #4 cap 01/30/18 Chlorthalidone 25 mg PO DAILY PRN PRN #0 01/30/18 Glimepiride [Amaryl] 4 mg PO DAILY #0 01/30/18 Quinapril HCl [Accupril] 20 mg PO DAILY #0 01/30/18 Tamsulosin HCl [Flomax] 0.4 mg PO DAILY@1730 #30 capsule 01/30/18 The following prescriptions were given: Amlodipine [Norvasc] 5 mg PO DAILY #30 tab Cefadroxil [Duracef] 500 mg PO BID #4 cap Primary Care Physician: Jerald Rao MD [Primary Care Provider] - Test Results: Test results from this visit will be discussed in further detail at your follow-up appointment, if applicable. Please Follow Up With: Nandini Gutierrez MD When: in 1 weeks for B/L ureteric stone
[2018-01-30] MEDS: Ibuprofen 600 MG Tablet PO (11:38)
--- NOTE | 2018-01-30 12:43 | PCM.OPRPT ---
Problem List (1) Bilateral hydronephrosis Status: Acute (2) Bilateral ureteral calculi Status: Acute (3) Acute pyelonephritis Status: Acute Report of Operation Date of Procedure: 01/29/18 Pre-Operative Diagnosis: bilateral ureteral calculi, hydronephrosis, pyelonephritis Post-Operative Diagnosis: same Surgery/Procedure Performed:: cystoscopy, bilateral ureteral stent insertion. Description of Surgical Findings:: significant debris throughout the urinary system bilaterally. stents inserted without difficulty. repeat urine culture sent after stents inserted. electronic engineering technician: Nandini Gutierrez Type of Anesthesia:: MAC Special Medications: rocephin Specimen's removed: urine for culture Estimated Blood Loss (mL): 2-3cc. Description of Procedure: The patient is a 62-year-old female with rheumatoid arthritis and diabetes who presented to the emergency room and found to have bilateral obstructing ureteral calculi, one in the mid ureter on the right and one in the proximal ureter on the left. After discussing all risks benefits and alternatives she agreed to proceed with cystoscopy and bilateral ureteral stent insertion with treatment of her stones at a later date. Patient was taken to the operating and placed on the operating room table. Anesthesia monitored the head, neck, airway, IV access and vital signs throughout the case. Once anesthesia was appropriately administered patient was placed into dorsal lithotomy position was prepped and draped in usual sterile fashion. A cystourethroscopy revealed significant debris throughout the urinary bladder without evidence of papillary growths, ulceration or foreign body aside from debris. At this time her ureteral orifices were identified and first beginning with the right side, a 0.035 Glidewire was passed through the orifice into the renal pelvis with good positioning identified on fluoroscopy. At this time a 6 [place] 24 stent with the string removed was inserted without difficulty curling achieved in the renal pelvis as well as the urinary bladder. This process was then repeated on the left side. Even further debris was then seen in the urinary bladder and a repeat urine culture was sent. Patient's bladder was emptied and she was awakened and taken to the recovery room in good condition. There are no complications during this procedure. Grafts/Implants Used: 6x24 double J stent in each side - Complications none - Admit VTE Documentation VTE Present on Admission: Yes VTE Mechan Device Prophylaxis: SCD's VTE Pharm Prophylaxis ordered?: No Reason prophylaxis not ordered:: Treatment Not Indicated
--- NOTE | 2018-01-30 12:55 | PCM.PN.GU ---
Physical Exam Subjective: Up in bed, visitor present. Feeling much better today. She will plan to follow up with me after discharge for definitive treatment of stones. - Physical Exam Vital Signs Temp 98.1 F 01/30/18 08:32 Pulse 77 01/30/18 08:32 Resp 18 01/30/18 08:32 BP 159/71 H 01/30/18 08:32 Pulse Ox 96 01/30/18 08:32 Intake & Output 01/28/18 01/29/18 01/30/18 23:59 23:59 23:59 Intake Total 2505 / 2505 922 / 922 Output Total 1725 / 1725 1425 / 1425 Balance 780 / 780 -503 / -503 Weight: 101.4 kg 100.698 kg 100.5 kg Intake: Oral 460 / 460 650 / 650 IV fluid/meds 2045 / 2045 272 / 272 IV #1 900 / 900 Output: Urine 1725 / 1725 1425 / 1425 General: Alert, Oriented x3, Cooperative, No apparent distress HEENT: Atraumatic, Normocephalic Oral: Moist Mucosa Neck: Trachea Midline Lungs: Normal air movement Abdomen: Soft, Non Tender, Non-Distended Rectal: Exam deferred Musculoskeletal: No Muscle Wasting Neurological: Cranial nerves II-XII grossly intact, Neuro grossly intact Psych/Mental Status: Normal Affect Medical Necessity - Tobacco Use Smoking Status: Never smoker Assessment/Plan All Active Problems (Last Reviewed 01/29/18 @ 09:52 by Nandini Gutierrez MD) Bilateral hydronephrosis (Acute) Bilateral ureteral calculi (Acute) Acute pyelonephritis (Acute) Continue supportive care. Await culture results, would recommend at least 10 days of antibiotics and not restarting Humira until after that. I will plan for repeat surgical intervention in about 2 weeks as outpatient if she is doing well clinically. She will follow up with me in the office to make arrangements for surgery.
--- NOTE | 2018-01-30 14:11 | DCINST_ITS ---
- Discharge Diagnoses Current Active Problems: Current Active and Chronic Problems (Last Reviewed 01/29/18 @ 09:52 by Nandini Gutierrez MD) Bilateral hydronephrosis (Acute) Bilateral ureteral calculi (Acute) Acute pyelonephritis (Acute) You will use the following diet at home:: Calorie/Carbohydrate Controlled ( specify 1200, 1400, etc) - 1800 ADA diet, Cardiac Discharge Activity: May not drive while taking narcotic pain medications. Call your doctor if you observe: Fever of 101 or Higher, Inability to urinate, - - Blood in the urine or flank pain Allergies/Adverse Reactions: Allergies BP MEDS Adverse Reaction (Uncoded 01/28/18 17:40) Other Medications to take at Discharge Adalimumab [Humira] 1 dose SQ QWEEK 06/14/16 Insulin Glargine,Hum.rec.anlog [Toujeo Solostar] 60 unit SQ QHS 06/25/17 Levothyroxine [Synthroid] 150 mcg PO DAILY 06/25/17 Cholecalciferol (Vitamin D3) [Vitamin D3] 20,000 unit PO DAILY 01/28/18 Omeprazole 40 mg PO DAILY 01/28/18 Amlodipine [Norvasc] 5 mg PO DAILY #30 tab 01/30/18 Cefadroxil [Duracef] 500 mg PO BID #4 cap 01/30/18 Chlorthalidone 25 mg PO DAILY PRN PRN #0 01/30/18 Glimepiride [Amaryl] 4 mg PO DAILY #0 01/30/18 Quinapril HCl [Accupril] 20 mg PO DAILY #0 01/30/18 Tamsulosin HCl [Flomax] 0.4 mg PO DAILY@1730 #30 capsule 01/30/18 The following prescriptions were given: Amlodipine [Norvasc] 5 mg PO DAILY #30 tab Cefadroxil [Duracef] 500 mg PO BID #4 cap Primary Care Physician: Jerald Rao MD [Primary Care Provider] - Test Results: Test results from this visit will be discussed in further detail at your follow- up appointment, if applicable. Please Follow Up With: Nandini Gutierrez MD When: in 1 weeks for B/L ureteric stone
--- NOTE | 2018-01-30 14:11 | DS.PCM_ITS ---
Discharge Date and Diagnosis - Problem List Patient Problems: Active and Suspected Problems (Last Reviewed 01/29/18 @ 09:52 by Nandini Gutierrez MD) Bilateral hydronephrosis (Acute) Bilateral ureteral calculi (Acute) Acute pyelonephritis (Acute) Date of Admission: 01/28/18 Date of Discharge: 01/30/18 - Primary Discharge Diagnosis Active and Suspected Problems (Last Reviewed 01/29/18 @ 09:52 by Nandini Gutierrez MD) Bilateral hydronephrosis (Acute) Bilateral ureteral calculi (Acute) Acute pyelonephritis (Acute) 1. Acute bilateral ureteric stone complicating bilateral hydronephrosis and pyelonephritis consistent with obstructive uropathy 2. Acute kidney injury most probably secondary to obstructive uropathy: Hospital Course and Treatment Summary of Care Provided: [] The patient is a 62 year old F with a significant history of rheumatoid arthritis, insulin-dependent diabetes mellitus; recurrent papillary thyroid carcinoma after thyroidectomy and radioactive iodine therapy; hypertension but no significant history of kidney stone disease admitted with gross hematuria; nausea, chills; anorexia; pelvic pain; bilateral flank pain ?1 week and found to have leukocytosis and found to have radiographic findings on CT scan of sizable bilateral ureteral stone; moderate to severe right renal edema with i superimposed infection; and moderate bilateral hydronephrosis. The patient had cystoscopy and bilateral ureteric stent placed. General: Alert, Oriented x3, Cooperative HEENT: Atraumatic, PERRLA, EOMI, Normocephalic Neck: Supple, No JVD, Negative Carotid Bruits Lungs: Clear to auscultation, Normal air movement Cardiovascular: Regular rate, Normal S1, Normal S2, No murmurs Abdomen: Bowel Sounds Present, Soft, Non Tender, Non-Distended Extremities: No edema, Capillary Refill Less than 3 Seconds Skin: No rashes, No breakdown Musculoskeletal: No Tenderness to Palpation of Joints or Extremities Neurological: Cranial nerves II-XII grossly intact Psych/Mental Status: Normal Affect, Appropriate 1. Acute bilateral ureteric stone complicating bilateral hydronephrosis and pyelonephritis consistent with obstructive uropathy: Patient was admitted on the regular floor. On IV Rocephin, IV fluid, narcotics and antiemetics. Flomax was ordered. Urologist was consulted.Dr. Gutierrez had bilateral retrograde stent inserted and advised stone treatment later on probably after 2 weeks. Urine culture x2 came negative. In view of CT finding of moderate to severe right renal edema with bilateral hydronephrosis and a strong suspicion of pyelonephritis in the correct clinical setting of obstructive uropathy, patient had 3 days of IV Rocephin. Prescription given for 2 more days of cefadroxil. 2. Acute kidney injury most probably secondary to obstructive uropathy: Previous creatinine on 01/25/2018 was normal 0.78 with increased to 1.3 and 1.6. Nephrotoxic medication including metformin, chlorthalidone, quinapril and glimepiride advised to be stopped for 1 week and same conveyed to the patient. Repeat BMP tomorrow a.m. Follow with PCP to further address the diabetic and antihypertensive medications 3. Hypertension: As mentioned above, hold quinapril and chlorthalidone. Amlodipine prescription was given in lieu of quinapril and chlorthalidone. Other chronic comorbidities include hypertension, diabetes mellitus type 2, rheumatoid arthritis on home adalimumab weekly, hypothyroidism secondary to thyroidectomy due to papillary thyroid carcinoma and radioactive therapy: Discharge medication reconciliation done. Follow-up instructions given. Follow -up urologist within 2 weeks to make an arrangement for definitive treatment of ureteric stone. Discharge medication, repeat BMP discussed with the patient the presence of her brother. Total time spent, exact 35 minutes on discharge meds reconciliation, examination , review of imaging and blood test and discussion with the patient on follow-up instructions. DVT prophylaxis on subcutaneous heparin. Clinical Impression(s) from Imaging Studies Abdomen/Pelvis CT 01/28/18 18:37 IMPRESSION: Sizable bilateral ureteral stones. Moderate to severe right renal edema cannot exclude superimposed infection. Moderate bilateral hydronephrosis. Small uterine fibroid. Hepatic steatosis hepatic enlargement Status post cholecystectomy. Degenerative change thoracolumbar spine most significant L4-L5. Renal Ultrasound 01/29/18 09:46 IMPRESSION: Improved bilateral kidneys with minimal right hydronephrosis visualized and trace left side pelviectasis and/or extrarenal pelvis. Discharge Activity: May not drive while taking narcotic pain medications. Call your doctor if you observe: Fever of 101 or Higher, Inability to urinate, - - Blood in the urine or flank pain Home Medications: Medications to take at Discharge Adalimumab [Humira] 1 dose SQ QWEEK 06/14/16 Insulin Glargine,Hum.rec.anlog [Toujeo Solostar] 60 unit SQ QHS 06/25/17 Levothyroxine [Synthroid] 150 mcg PO DAILY 06/25/17 Cholecalciferol (Vitamin D3) [Vitamin D3] 20,000 unit PO DAILY 01/28/18 Omeprazole 40 mg PO DAILY 01/28/18 Amlodipine [Norvasc] 5 mg PO DAILY #30 tab 01/30/18 Cefadroxil [Duracef] 500 mg PO BID #4 cap 01/30/18 Chlorthalidone 25 mg PO DAILY PRN PRN #0 01/30/18 Glimepiride [Amaryl] 4 mg PO DAILY #0 01/30/18 Quinapril HCl [Accupril] 20 mg PO DAILY #0 01/30/18 Tamsulosin HCl [Flomax] 0.4 mg PO DAILY #30 cap.er.24h 01/30/18 Following Prescrptions Were Given to Patient: Amlodipine [Norvasc] 5 mg PO DAILY #30 tab Tamsulosin HCl [Flomax] 0.4 mg PO DAILY #30 cap.er.24h Cefadroxil [Duracef] 500 mg PO BID #4 cap Primary Care Physician: Jerald Rao MD [Primary Care Provider] - Please Follow Up With: Nandini Gutierrez MD When: in 1 weeks for B/L ureteric stone Medical Necessity - Tobacco Use Smoking Status: Never smoker Meaningful Use Info Meaningful Use Diagnoses (Choose all that apply): None applicable Code Visit Inpatient E&M: 97427 Disch Hosp
[2018-01-30 14:40] VITALS: BP 167/71; PULSE 72; RESP 18; TEMP 36.8; O2SAT 97
--- NOTE | 2018-01-31 18:00 | CASEMGMT ---
KLAUDIA FELIX DISCHARGE PHONE CALL LACShai: 11 STRATA 3 Discharge Date: 01/30/18 KLAUDIA FELIX spoke with pt re; how she has been feeling since discharge from hospital. Pt reports I'm doing good. Pt states she has no questions about discharge instructions. 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 Pt has a follow-up appt with Dr Zamudio on 02/08/18. Denies having any questions or needs. KLAUDIA FELIX thanked pt for choosing [facility]. Octavia COLLIER RN, CM
== END 2018-01-30 14:47 | disposition home or self-care (01) | DRG 690 ==
LOC: ED 19:23 → MS2 20:06
PROVIDERS: Anesthesiology; Urology; Admitting Provider Hospitalist; Emergency Provider Emergency Medicine; Family Provider Family Medicine; PCP Family Medicine; Visit Provider Internal Medicine
PROC: 0T788DZ Dilation of Bilateral Ureters with Intraluminal Device, Via Natural or Artificial Opening Endoscopic (ICD-10-PCS; principal; 2018-01-29 09:30)
DX: N13.6 Pyonephrosis (principal); N17.9 Acute kidney failure, unspecified; I10 Essential (primary) hypertension; M06.9 Rheumatoid arthritis, unspecified; Z79.899 Other long term (current) drug therapy; E11.9 Type 2 diabetes mellitus without complications; Z79.4 Long term (current) use of insulin; E89.0 Postprocedural hypothyroidism; C73 Malignant neoplasm of thyroid gland; N10 Acute pyelonephritis
CPT/HCPCS: 74176; 76000; 76770; 80048; 81001; 82962; 83036; 85025; 85730; 87086; 93005; 99282; J7030; A4216; C1769; C2617; J2405

== ENCOUNTER → 2018-01-31 09:05 | Outpatient (CLI) | payer OTHER, SELFPAY ==
[2018-01-31 10:31] LABS: Anion Gap 10 (5-15); BUN 14 mg/dL (7-18); BUN/Creat Ratio 15.6 RATIO (10-20); Calcium,Total 9.4 mg/dL (8.5-10.1); Chloride 105 mmol/L (98-107); EST Glomerular Filtration Rate 68 mL/min (>60); Est Glom Filt Rate - Afr Amer 82 mL/min (>60); Glucose 154 mg/dL (74-106); Potassium 4.1 mmol/L (3.5-5.1); Sodium Level 143 mmol/L (136-145)
== END ==
PROVIDERS: Internal Medicine; Family Provider Family Medicine; PCP Family Medicine; Visit Provider Urology
DX: N17.9 Acute kidney failure, unspecified (principal)
CPT/HCPCS: 36415; 80048

== ENCOUNTER 2018-02-06 15:10 | Emergency (ER) | payer OTHER, SELFPAY ==
[2018-02-06 15:10] VITALS: BP 198/91; PULSE 89; RESP 18; TEMP 37.1; O2SAT 99; BMI 38.2
--- NOTE | 2018-02-06 15:42 | CT_ITS ---
STUDY: CT ABDOMEN AND PELVIS WITHOUT CONTRAST REASON FOR EXAM: Female, 62 years old. Hematuria RADIATION DOSAGE (If Supplied By Facility): CTDIvol = ( 18.69 ) mGy, DLP = ( 989.91 ) mGycm TECHNIQUE: Transaxial images were obtained from the dome of the diaphragm to the symphysis pubis without oral contrast, and without intravenous contrast. Sagittal and coronal images were reconstructed. Individualized dose optimization techniques were used for this CT. COMPARISON: 01/28/2018 FINDINGS: Evaluation of the abdominal viscera is limited in the absence of intravenous contrast. The visualized lung bases are clear. The visualized portions of the heart and pericardium are within normal limits. The patient is status post cholecystectomy. The liver is low in density, consistent with fatty infiltration. The spleen is normal in size. The pancreas demonstrates an unremarkable unenhanced appearance. The adrenal glands are within normal limits. There are stable nonobstructing stones in the collecting system of the left kidney. There has been interval placement of bilateral ureteral stents. There are no ureteral stones. There is no hydronephrosis. Normal visualized stomach. There is no bowel obstruction or inflammation. The appendix is visualized and appears normal. The aorta is normal in caliber. There is no abdominal or pelvic free air, free fluid, fluid collection or lymphadenopathy. There are no destructive osseous lesions. CT/Abdomen/Pelvis without Cont IMPRESSION: Interval placement of bilateral ureteral stents. Stable subcentimeter nonobstructing left renal stones. No ureteral stones. No hydronephrosis. No bowel obstruction or inflammation. Normal appendix. Fatty liver. Electronically Signed: Zak Hathaway, at 16:38 EDT Tel , Service support ,
[2018-02-06] MEDS: 0.9% Normal Saline 1,000 ML 1000 ML IV (15:46)
[2018-02-06 15:49] LABS: Bacteria 0 SEEN /hpf (None Seen); Mucous, Urine 0 SEEN /hpf (<or=2+)
[2018-02-06 15:55] LABS: Color, Urine Red (Yellow); Glucose, Dipstick Normal (Normal); Ketone-Dipstick 15 mg/dl (Negative); Leukocyte Esterase-Dipstick 100 /ul (Negative); Nitrite-Dipstick Positive (Negative); Occult Blood-Urine 250 /ul (Negative); Protein-Dipstick 100 mg/dl (Negative); Specific Gravity, Urine 1.015 (1.002-1.030); Urine Bilirubin Dipstick Negative (Negative); Urine Clarity Sl. Cloudy (Clear); Urine Urobilinogen Normal (Normal)
[2018-02-06 15:58] LABS: Absolute Lymphocyte Count 3.66 X10^3/ul (0.83-4.51); Absolute Neutrophil Count 5.1 X10^3/uL (2.0-7.7); Basophil# 0.04 X10^3/uL; Basophil% 0.4 % (0-1); Eosinophil# 0.32 X10^3/uL; Eosinophils% 3.3 % (0-5); Hematocrit 40.6 % (37-47); Hemoglobin 13.1 g/dl (12.0-15.0); Lymphocyte # 3.66 X10^3/ul (4.0); Lymphocyte % 37.3 % (19-41); Mean Corp Hgb Conc 32.3 g/gl (32-36); Mean Corpuscular Hgb 27.5 pg (27.0-32.0); Mean Corpuscular Volume 85.1 fL (81-99); Mean Platelet Vol. 9.8 fl (6.2-12.0); Monocyte# 0.73 X10^3/uL; Monocyte% 7.4 % (0-10); Neutrophil # 5.06 X10^3/uL (2.7-7.7); Neutrophil % 51.5 % (47-70); POSITIVE COUNT NO; POSITIVE DIFFERENTIAL NO; POSITIVE MORPHOLOGY NO; Platelet Count 345 K/mm3 (150-450); RBC Distribution Width CV 13.2 % (11.6-14.6); RBC Distribution Width SD 40.7 fl (35.1-43.9); Red Blood Count 4.77 M/mm3 (4.2-5.4); White Blood Count 9.8 K/mm3 (4.4-11.0)
[2018-02-06 16:03] LABS: Red Blood Cells-Urine > 100 SEEN /hpf (0-5); Squamous Epithelial Cells - UA 5-10 SEEN /hpf (5-10); White Blood Cells 5-10 SEEN /hpf (0-5)
[2018-02-06 16:06] LABS: BUN 17 mg/dL (7-18); BUN/Creat Ratio 21.4 RATIO (10-20); Creatinine, Serum 0.79 mg/dL (0.55-1.02); EST Glomerular Filtration Rate 78 mL/min (>60); Est Glom Filt Rate - Afr Amer 94 mL/min (>60); Estimated Creatinine Clearance 61.08 ml/min; Glucose 172 mg/dL (74-106)
[2018-02-06 16:07] LABS: Anion Gap 9 (5-15); Calcium,Total 9.3 mg/dL (8.5-10.1); Chloride 107 mmol/L (98-107); Potassium 3.8 mmol/L (3.5-5.1); Sodium Level 138 mmol/L (136-145)
--- NOTE | 2018-02-06 17:21 | NURSING ---
DR MARSH SIGNED OUT. THAT PHYSICIAN PAGED AND HASNT ANSWERED. IS AWARE
--- NOTE | 2018-02-06 17:23 | NURSING ---
ELISHA MAGANA FOR DR COUCH, CALLED BACK
--- NOTE | 2018-02-06 17:32 | ED.DCSUM_ITS ---
- ER Visit Summary Date of Service: 02/06/18 Chief Complaint: Bilateral flank pain History of Present Illness: The patient is a 62 F who presents with bilateral flank pain. She was recently admitted for bilateral kidney stones and pyelonephritis. She had bilateral ureteral stents placed. Today she developed dark and bloody urine and severe bilateral flank pain which is currently improving. Currently she rates this is only 4 out of 10. No anterior abdominal pain. No fevers. No nausea vomiting or diarrhea. Physical Examination: Afebrile vitals are notable for hypertension otherwise normal Moist mucous membranes Heart regular rate and rhythm Lungs are clear Abdomen soft nontender nondistended Bilateral CVA tenderness Alert Test Results: CBC BMP unremarkable except glucose 172. Urinalysis is positive nitrates as well as greater than 100 RBCs 5-10 WBCs 5-[address] of the abdomen and pelvis shows interval bilateral ureteral stent placement and resolution of hydronephrosis no ureteral calculi. Emergency Department Course and Treatment: Patient declined any medication here as her symptoms were improving. Her CT shows stents to be in place and resolution of hydronephrosis. I spoke to the physician certified anesthesiologist assistant covering for the patient's urologist who also spoke to the urologist and call me back. They did agree no further workup or intervention is necessary at this time from the emergency department. She was advised to keep her scheduled follow-up on Wednesday. She understands to return for new or worsening symptoms and was instructed on specific signs and symptoms to monitor for and was discharged home. Treatment Plan: [] Disposition: Discharge Impression: Bilateral flank pain, recent bilateral ureteral stent placement This note was generated with [employer] dictation software. It may contain incorrect words, spelling, and punctuation that were not noted in review of the chart prior to signing ED Disposition - Plan for ED Patient: Chief Complaint: Complaint Referrals: Jerald Rao MD [Primary Care Provider] -
--- NOTE | 2018-02-06 17:32 | ED.DEP ---
ED Disposition - Plan for ED Patient: Chief Complaint: Complaint Instructions: ED Flank Pain Uncertain Cause, Ureteral Stents Referrals: Jerald Rao MD [Primary Care Provider] - Nandini Gutierrez MD [STAFF PHYSICIAN] -
[2018-02-06 17:44] VITALS: BP 168/90; PULSE 78; RESP 17; O2SAT 98
== END 2018-02-06 17:45 | disposition home or self-care (01) ==
LOC: ED 15:53
PROVIDERS: Emergency Provider Emergency Medicine; Family Provider Family Medicine; PCP Family Medicine
DX: R10.9 Unspecified abdominal pain (principal); Z96.0 Presence of urogenital implants; E11.9 Type 2 diabetes mellitus without complications; I10 Essential (primary) hypertension; E03.9 Hypothyroidism, unspecified; Z87.442 Personal history of urinary calculi; Z90.49 Acquired absence of other specified parts of digestive tract; Z79.4 Long term (current) use of insulin; Z79.899 Other long term (current) drug therapy
CPT/HCPCS: 74176; 80048; 81001; 85025; 96360; 96361; 99285; J7030; A4216

== ENCOUNTER → 2018-02-08 08:06 | Outpatient (CLI) | payer OTHER, SELFPAY ==
--- NOTE | 2018-02-08 08:08 | RAD_ITS ---
STUDY: X-RAY - ABDOMEN/PELVIS REASON FOR EXAM: Female, 62 years old. Renal stones. TECHNIQUE: Single AP view of the abdomen / pelvis. COMPARISON: CT scan of 02/06/2018. FINDINGS: There are bilateral ureteral stents in typical location and stable since CT scan. On the left, renal stones are seen in the left lower pole, and there is a 1 cm stone adjacent to the proximal left ureteral stent. There is an unremarkable bowel gas pattern. There is no demonstrated free abdominal air. The visualized liver, spleen and kidneys are grossly normal in size and morphology. Normal soft tissue structures. Normal visualized osseous structures. RAD/Abdomen Single View IMPRESSION: Findings similar to previous CT scan. Ureteral stents in typical location. Left renal and proximal left ureteral stone. Electronically Signed: Denny Shipley MD at 16:56 EDT , Service support ,
== END ==
PROVIDERS: Family Provider Family Medicine; PCP Family Medicine; Referring Provider Urology; Visit Provider Urology
DX: N20.0 Calculus of kidney (principal)
CPT/HCPCS: 74018

== ENCOUNTER 2018-02-12 16:55 | Emergency (ER) | payer OTHER, SELFPAY ==
[2018-02-12 16:57] VITALS: BP 200/94; PULSE 90; RESP 18; TEMP 37.2; O2SAT 97; BMI 38.9
[2018-02-12 18:05] LABS: Mucous, Urine 0 SEEN /hpf (<or=2+)
[2018-02-12 18:08] LABS: Color, Urine Red (Yellow); Glucose, Dipstick Normal (Normal); Ketone-Dipstick 5 mg/dl (Negative); Leukocyte Esterase-Dipstick 100 /ul (Negative); Nitrite-Dipstick Positive (Negative); Occult Blood-Urine 250 /ul (Negative); Protein-Dipstick 100 mg/dl (Negative); Specific Gravity, Urine 1.015 (1.002-1.030); Urine Bilirubin Dipstick Negative (Negative); Urine Clarity Sl. Cloudy (Clear); Urine Urobilinogen Normal (Normal)
[2018-02-12 18:08] LABS: Absolute Lymphocyte Count 1.89 X10^3/ul (0.83-4.51); Absolute Neutrophil Count 6.6 X10^3/uL (2.0-7.7); Basophil# 0.03 X10^3/uL; Basophil% 0.3 % (0-1); Eosinophil# 0.17 X10^3/uL; Eosinophils% 1.8 % (0-5); Hematocrit 39.2 % (37-47); Hemoglobin 12.7 g/dl (12.0-15.0); Lymphocyte # 1.89 X10^3/ul (4.0); Lymphocyte % 19.9 % (19-41); Mean Corp Hgb Conc 32.4 g/gl (32-36); Mean Corpuscular Hgb 27.6 pg (27.0-32.0); Mean Corpuscular Volume 85.2 fL (81-99); Mean Platelet Vol. 9.6 fl (6.2-12.0); Monocyte# 0.81 X10^3/uL; Monocyte% 8.5 % (0-10); Neutrophil % 69.4 % (47-70); Platelet Count 300 K/mm3 (150-450); RBC Distribution Width CV 13.1 % (11.6-14.6); RBC Distribution Width SD 40.2 fl (35.1-43.9); White Blood Count 9.5 K/mm3 (4.4-11.0)
[2018-02-12 18:09] LABS: POSITIVE COUNT NO; POSITIVE DIFFERENTIAL NO; POSITIVE MORPHOLOGY NO
[2018-02-12] MEDS: Ketorolac 15 MG/ML Vial IV (18:13)
[2018-02-12] MEDS: Morphine 4 MG/ML Syringe IV (18:13)
[2018-02-12] MEDS: Ondansetron 4 MG/2 ML Vial IV (18:13)
[2018-02-12] MEDS: 0.9% Normal Saline 1,000 ML 150 ML IV (18:13)
[2018-02-12 18:14] LABS: Bacteria 1+ /hpf (None Seen); Red Blood Cells-Urine > 100 SEEN /hpf (0-5); Squamous Epithelial Cells - UA 0-5 SEEN /hpf (5-10); White Blood Cells 25-50 SEEN /hpf (0-5)
--- NOTE | 2018-02-12 18:20 | RAD_ITS ---
STUDY: X-RAY - ABDOMEN/PELVIS REASON FOR EXAM: Female, 62 years old. Abdominal pain TECHNIQUE: Two AP supine views of the abdomen and pelvis. COMPARISON: 02/08/2018 FINDINGS: Stable bilateral transureteral stents. There is an unremarkable bowel gas pattern. There is no demonstrated free abdominal air. Stable left lower renal calculus measuring 10 mm. Stable calculus projecting over the proximal left ureter stent at the L4 level measuring 10 mm. Pelvic phleboliths. Normal soft tissue structures. Normal visualized osseous structures. RAD/Abdomen Single View IMPRESSION: Normal bowel gas pattern. Stable left renal and left ureter calculi. Electronically Signed: Goyo Roldan MD at 19:17 EDT Tel , Service support ,
[2018-02-12 18:30] LABS: Anion Gap 7 (5-15); BUN 24 mg/dL (7-18); BUN/Creat Ratio 21.4 RATIO (10-20); Chloride 108 mmol/L (98-107); Creatinine, Serum 1.12 mg/dL (0.55-1.02); EST Glomerular Filtration Rate 52 mL/min (>60); Est Glom Filt Rate - Afr Amer 63 mL/min (>60); Estimated Creatinine Clearance 43.08 ml/min; Glucose 153 mg/dL (74-106); Potassium 4.1 mmol/L (3.5-5.1); Sodium Level 140 mmol/L (136-145)
--- NOTE | 2018-02-12 19:07 | CT_ITS ---
STUDY: CT ABDOMEN AND PELVIS WITHOUT CONTRAST REASON FOR EXAM: Female, 62 years old. Left flank pain RADIATION DOSAGE (If Supplied By Facility): CTDIvol = ( 20.46 ) mGy, DLP = ( 1047.80 ) mGycm TECHNIQUE: Transaxial images were obtained from the dome of the diaphragm to the symphysis pubis without oral contrast, and without intravenous contrast. Sagittal and coronal images were reconstructed. Individualized dose optimization techniques were used for this CT. COMPARISON: 02/06/2018 FINDINGS: The visualized lung bases are unremarkable. The visualized portions of the heart are within normal limits. Hepatomegaly. There is non-visualization of the gallbladder, which may be secondary to either contraction or a prior cholecystectomy. Normal spleen. Normal pancreas. Normal bilateral adrenal glands. Bilateral transureteral stents. Evolving changes of moderate acute right and moderate to severe acute left obstructive uropathy, new from prior exam. No new distal ureter obstructing stones are seen. Stable 5 mm stone in the proximal left ureter adjacent to the stent. Multiple nonobstructing left renal calculi, the largest measuring 10 mm. Normal visualized stomach. Normal small intestine. There are multiple colonic diverticula consistent with diverticulosis. The appendix is visualized and appears normal. Normal abdominal aorta. Normal inferior vena cava. Normal retroperitoneum. Normal urinary bladder. Normal abdominal wall. There are diffuse degenerative changes of the visualized lumbar spine. CT/Abdomen/Pelvis without Cont IMPRESSION: Interval development of changes of bilateral acute obstructive uropathy, moderate on the right and moderate to severe on the left. Correlate clinically for the possibility of stent dysfunction. Stable 5 mm stone in the proximal left ureter adjacent to the stent. Electronically Signed: Goyo Roldan MD at 20:48 EDT Tel , Service support ,
[2018-02-12] MEDS: Ceftriaxone 1 GM/50 ML BAG IV (19:23)
[2018-02-12 19:31] VITALS: BP 166/71; PULSE 76; RESP 15; O2SAT 97
--- NOTE | 2018-02-12 21:36 | ED.VISSUMM ---
- ER Visit Summary Date of Service: 02/12/18 Chief Complaint: Left flank pain History of Present Illness: The patient is a 62 F who was admitted in early January with bilateral kidney stones. She had bilateral stents placed on the and is scheduled for lithotripsy on February 25. Patient states she had left flank pain that started this morning. She reports nausea but no vomiting. She states she has had hematuria for the past month. She denies fever or chills. Physical Examination: Blood pressure on arrival is 200/94, temperature 99, heart rate 90, respiratory rate 18, pulse ox 97% on room air. Patient sitting upright in bed no acute distress. Head neck examination normal. Heart is regular rate and rhythm. Lung sounds are clear. Abdomen is soft with mild left lower quadrant tenderness. Back examination is significant for left CVA tenderness. Test Results: CBC and chemistry studies reveal BUN 24 and a creatinine of 1.12. It appears that during the patient's prior admission her creatinine got up to 1.6, but improved to 0.79 after stents were placed. Urinalysis today is positive for nitrites with 25-50 white cells, greater than 100 red cells, and 1+ bacteria. Urine culture was sent. KUB shows normal bowel gas pattern. Stable left renal and left ureteral calculi are noted. CT flank was also obtained that shows interval development of bilateral obstructive changes-moderate on the right, moderate to severe on left. Stable 5 mm stone at the proximal left ureter adjacent to the stent. Emergency Department Course and Treatment: Patient was given a dose of morphine, Zofran, and 15 mg of Toradol on arrival along with IV fluids. After completion of urinalysis she was given a dose of IV Rocephin. Patient has been treated by Dr. Gutierrez. Although I initially have know what he listed for urology call this weekend, burnishing machine operator states that Dr. Butt is listed on her call list. Dr. Butt did call me back and reviewed the case with him. Although her renal function has slightly climbed, he feels that it is safe for the patient to go home and follow-up closely on Wednesday. Patient is countable with this plan. She is given a prescription for [place] and Zofran. She will be covered with Bactrim for the next 3 days. At that time urine culture should have returned and if she requires longer course we can call her in a prescription. Treatment Plan: [] Disposition: Discharge Impression: Flank pain with bilateral ureteral stents. This note was generated with [employer] dictation software. It may contain incorrect words, spelling, and punctuation that were not noted in review of the chart prior to signing ED Disposition - Plan for ED Patient: Disposition: Home or Assisted Living Chief Complaint: Flank Pain Instructions: ED Stone Renal W Colic Prescriptions: Ondansetron [Zofran Odt] 4 mg PO Q8H PRN PRN #10 tablet PRN Reason: Nausea Hydrocodone/Acetaminophen [[place] 5-325 Tablet] 1 - 2 each PO 4X/DAY PRN PRN 5 Days #20 tablet PRN Reason: Pain Smz/Tmp Ds [Bactrim Ds] 1 tablet PO BID #6 tablet Referrals: Nandini Gutierrez MD [STAFF PHYSICIAN] - 2 Days
[2018-02-12 21:47] VITALS: BP 151/64; PULSE 70; RESP 15; O2SAT 96
[2018-02-12] MEDS: Ondansetron ODT 4 MG Tablet PO (21:50)
[2018-02-12] MEDS: HYDROcodone Bitartrate/Apap 5/325 Tablet PO (21:50)
== END 2018-02-12 21:59 | disposition home or self-care (01) ==
PROVIDERS: Emergency Provider Emergency Medicine; Family Provider Family Medicine; PCP Family Medicine
DX: R10.32 Left lower quadrant pain (principal); Z96.0 Presence of urogenital implants; N20.2 Calculus of kidney with calculus of ureter; E11.9 Type 2 diabetes mellitus without complications; M19.90 Unspecified osteoarthritis, unspecified site; M06.9 Rheumatoid arthritis, unspecified; Z87.442 Personal history of urinary calculi; Z79.4 Long term (current) use of insulin; Z79.899 Other long term (current) drug therapy
CPT/HCPCS: 74018; 74176; 80048; 81001; 85025; 87086; 87088; 96361; 96365; 96366; 96374; 96375; 99283; J7030; J2405

== ENCOUNTER → 2018-02-22 07:01 | Outpatient (CLI) | payer OTHER, SELFPAY ==
[2018-02-22 10:25] LABS: ALB/GLOB Ratio 0.9 RATIO (0.9-2.4); AST(SGOT) 24 U/L (15-37); Alanine Aminotransfer ALT/SGPT 55 U/L (13-56); Albumin, Serum 3.5 g/dL (3.2-5.0); Alkaline Phosphatase 85 U/L (45-117); Anion Gap 8 (5-15); BUN 21 mg/dL (7-18); BUN/Creat Ratio 20.2 RATIO (10-20); Calcium,Total 10.1 mg/dL (8.5-10.1); Chloride 102 mmol/L (98-107); Creatinine, Serum 1.04 mg/dL (0.55-1.02); EST Glomerular Filtration Rate 57 mL/min (>60); Est Glom Filt Rate - Afr Amer 69 mL/min (>60); Globulin 4.1 g/dL (2.2-4.2); Glucose 152 mg/dL (74-106); Magnesium 1.7 mg/dL (1.6-2.6); Potassium 3.6 mmol/L (3.5-5.1); Protein, Total 7.6 g/dL (6.4-8.2); Sodium Level 140 mmol/L (136-145)
[2018-02-22 10:58] LABS: Vitamin D,25 Hydroxy 42.2 ng/mL (29.95-100.01)
== END ==
PROVIDERS: Family Provider Family Medicine; PCP Family Medicine; Referring Provider Internal Medicine Endocrinology, Diabetes & Metabolism; Visit Provider Internal Medicine Endocrinology, Diabetes & Metabolism
DX: E11.65 Type 2 diabetes mellitus with hyperglycemia (principal); E83.42 Hypomagnesemia; E55.9 Vitamin D deficiency, unspecified
CPT/HCPCS: 36415; 80053; 82306; 83735

== ENCOUNTER 2018-03-23 17:17 | Emergency (ER) | payer OTHER, SELFPAY ==
[2018-03-23 17:19] VITALS: BP 167/89; PULSE 94; RESP 18; TEMP 37.6; O2SAT 95; BMI 39.5
--- NOTE | 2018-03-23 17:34 | RAD_ITS ---
STUDY: X-RAY CHEST REASON FOR EXAM: Female, 62 years old. Fever, cough, wheezing. Preoperative. TECHNIQUE: PA and lateral views. COMPARISON: 06/14/2016. FINDINGS: The lungs are clear and expanded. There is no demonstrated pleural abnormality. Normal size heart. Normal mediastinum and chelo. Normal visualized pulmonary arteries. Normal visualized aortic arch and descending thoracic aorta. Normal visualized thoracic spine. Normal visualized ribs, clavicles, and shoulders. There is no demonstrated abnormality of the visualized soft tissue structures of the upper abdomen. RAD/Chest PA and Lateral IMPRESSION: Normal x-ray examination of the chest. Electronically Signed: Marilee Elliott MD at 19:31 EST Tel , Service support ,
[2018-03-23 17:42] VITALS: PULSE 85; RESP 22
[2018-03-23] MEDS: Ipratropium/Albuterol Sulfate 3 ML AMPUL.NEB INHALATION (17:42)
[2018-03-23] MEDS: Albuterol 2.5 MG/3 ML VIAL.NEB. INHALATION (17:50)
[2018-03-23 18:12] LABS: Absolute Neutrophil Count 7.4 X10^3/uL (2.0-7.7); Basophil# 0.02 X10^3/uL; Basophil% 0.1 % (0-1); Eosinophil# 0.29 X10^3/uL; Eosinophils% 2.1 % (0-5); Hematocrit 40.5 % (37-47); Hemoglobin 13.4 g/dl (12.0-15.0); Lymphocyte % 34.6 % (19-41); Mean Corp Hgb Conc 33.1 g/gl (32-36); Mean Corpuscular Volume 84.7 fL (81-99); Mean Platelet Vol. 9.3 fl (6.2-12.0); Monocyte# 1.17 X10^3/uL; Monocyte% 8.6 % (0-10); Neutrophil # 7.38 X10^3/uL (2.7-7.7); Neutrophil % 54.3 % (47-70); Platelet Count 336 K/mm3 (150-450); RBC Distribution Width CV 13.4 % (11.6-14.6); RBC Distribution Width SD 40.9 fl (35.1-43.9); Red Blood Count 4.78 M/mm3 (4.2-5.4); White Blood Count 13.6 K/mm3 (4.4-11.0)
[2018-03-23 18:13] VITALS: BP 172/75; PULSE 102; RESP 18; O2SAT 95
[2018-03-23 18:13] LABS: POSITIVE COUNT NO; POSITIVE DIFFERENTIAL NO; POSITIVE MORPHOLOGY NO
[2018-03-23 18:27] LABS: Anion Gap 7 (5-15); BUN 26 mg/dL (7-18); BUN/Creat Ratio 17.8 RATIO (10-20); Calcium,Total 9.2 mg/dL (8.5-10.1); Chloride 101 mmol/L (98-107); Creatinine, Serum 1.46 mg/dL (0.55-1.02); EST Glomerular Filtration Rate 39 mL/min (>60); Est Glom Filt Rate - Afr Amer 47 mL/min (>60); Estimated Creatinine Clearance 33.05 ml/min; Glucose 245 mg/dL (74-106); Potassium 3.6 mmol/L (3.5-5.1); Sodium Level 136 mmol/L (136-145)
--- NOTE | 2018-03-23 20:00 | ED.DCSUM_ITS ---
- ER Visit Summary Date of Service: 03/23/18 Chief Complaint: Fever, cough and shortness of breath History of Present Illness: The patient is a 62 F who is status post lithotripsy presents after speaking with her urologist because of cough, shortness of breath and fever. She reports chills. She does have history of asthma and does have an inhaler, which she has not used recently. She denies headache, photophobia neck pain or neck stiffness. She denies rhinorrhea, congestion or postnasal drainage. She denies earache, ringing in her ears or decreased hearing. He denies sore throat. Cough is nonproductive. She does complain of mild dyspnea with exertion. Denies chest discomfort of any type. She denies pleuritic pain. She denies vomiting or diarrhea. She does report nausea. She denies leg pain, swelling or discoloration of her lower extremities. There is no history of PE or DVT. Physical Examination: Vital signs noted and unremarkable respiratory 22. She not febrile nor she hypoxic. Head is atraumatic normocephalic. Pupils are equal round reactive. Extraocular muscles are intact. TMs are pearly white with landmarks noted. Nares patent with no drainage. Posterior pharynx without erythema or exudate. Uvula is midline. There is no dysphonia or dysphasia. Trachea is midline. There is no stridor with auscultation of the neck. Heart is regular without murmur, gallop or rub. Lungs reveal increased x-ray phase wheezing throughout with diminished breath sounds. Abdomen is soft nontender. She has mild CVA tenderness. There is no asymmetry, swelling, discoloration, leg vein distention, palpable cords or tenderness along the distribution of the deep venous system. Neuro exam is nonfocal. Test Results: White count is 13.6 thousand with normal differential. Glucose is 245. BUN is 26 with a creatinine 1.46. Creatinine on February 22, 2018 was 1.04. Two-view chest x-ray reveals normal optic silhouette, mediastinum and lung parenchyma. There is no evidence of infiltrate, effusion or CHF. Osseous structures appear normal. Emergency Department Course and Treatment: Patient was treated with DuoNeb and albuterol. Chest x-ray was obtained to determine if she has postop pneumonia and blood work to assess her renal function, glucose and she is diabetic and white count. Treatment Plan: Patient was reassessed at 1954. She is presently wheeze free. She was instructed use her inhaler every 2-4 hours while awake for the next 2 days and every 4-6 hours as needed for shortness of breath/wheezing. Disposition: Discharged home in stable improved condition with family Impression: 1. Postop fever 2. Acute bronchitis 3. Bronchospasm and known asthmatic 4. Renal insufficiency status post lithotripsy This note was generated with [employer] dictation software. It may contain incorrect words, spelling, and punctuation that were not noted in review of the chart prior to signing ED Disposition - Plan for ED Patient: Disposition: Home or Assisted Living Chief Complaint: Fever Instructions: ED Bronchitis Asthmatic, ED Insufficiency Renal Referrals: Jerald Rao MD [Primary Care Provider] - 3-5 Days if not improving Additional Instructions: 2 puffs of inhaler every 2-4 hours while awake for the next 2 days then every 4- 6 hours as needed.
[2018-03-23 20:02] VITALS: BP 168/88; PULSE 78; RESP 16; O2SAT 98
== END 2018-03-23 20:04 | disposition home or self-care (01) ==
PROVIDERS: Emergency Provider Emergency Medicine; Family Provider Family Medicine; PCP Family Medicine
DX: R50.82 Postprocedural fever (principal); J20.9 Acute bronchitis, unspecified; J45.909 Unspecified asthma, uncomplicated; N28.9 Disorder of kidney and ureter, unspecified; Z98.890 Other specified postprocedural states; E11.9 Type 2 diabetes mellitus without complications; I10 Essential (primary) hypertension; Z79.4 Long term (current) use of insulin; Z79.899 Other long term (current) drug therapy
CPT/HCPCS: 71046; 80048; 85025; 94640; 99284; A4216

== ENCOUNTER → 2018-04-04 09:44 | Outpatient (CLI) | payer OTHER, SELFPAY ==
[2018-04-04 09:44] VITALS: BMI 38.7
[2018-04-04 09:48] LABS: Bacteria 0 SEEN /hpf (None Seen); Mucous, Urine 0 SEEN /hpf (<or=2+)
[2018-04-04 12:45] LABS: Absolute Lymphocyte Count 3.09 X10^3/ul (0.83-4.51); Absolute Neutrophil Count 4.2 X10^3/uL (2.0-7.7); Basophil# 0.04 X10^3/uL; Basophil% 0.5 % (0-1); Eosinophil# 0.33 X10^3/uL; Hematocrit 41.6 % (37-47); Hemoglobin 13.8 g/dl (12.0-15.0); Lymphocyte # 3.09 X10^3/ul (4.0); Lymphocyte % 37.7 % (19-41); Mean Corp Hgb Conc 33.2 g/gl (32-36); Mean Corpuscular Hgb 28.2 pg (27.0-32.0); Mean Corpuscular Volume 85.1 fL (81-99); Mean Platelet Vol. 10.5 fl (6.2-12.0); Monocyte# 0.58 X10^3/uL; Monocyte% 7.1 % (0-10); Neutrophil # 4.15 X10^3/uL (2.7-7.7); Neutrophil % 50.6 % (47-70); Platelet Count 351 K/mm3 (150-450); RBC Distribution Width CV 13.1 % (11.6-14.6); RBC Distribution Width SD 40.2 fl (35.1-43.9); Red Blood Count 4.89 M/mm3 (4.2-5.4); White Blood Count 8.2 K/mm3 (4.4-11.0)
[2018-04-04 12:47] LABS: Color, Urine Yellow (Yellow); Glucose, Dipstick 100 mg/dl (Normal); Ketone-Dipstick Negative (Negative); Leukocyte Esterase-Dipstick 25 /ul (Negative); Nitrite-Dipstick Negative (Negative); Occult Blood-Urine 10 /ul (Negative); Protein-Dipstick 15 mg/dl (Negative); Specific Gravity, Urine 1.015 (1.002-1.030); Urine Bilirubin Dipstick Negative (Negative); Urine Clarity Sl. Cloudy (Clear); Urine Urobilinogen Normal (Normal); Urine pH 6.5 (5.0 - 8.0)
[2018-04-04 12:53] LABS: Red Blood Cells-Urine 0-5 SEEN /hpf (0-5); Squamous Epithelial Cells - UA 0-5 SEEN /hpf (5-10); White Blood Cells 0-5 SEEN /hpf (0-5)
[2018-04-04 12:54] LABS: Hemoglobin A1c 9.3 % (4.2-6.3)
[2018-04-04 12:55] LABS: AST(SGOT) 25 U/L (15-37); Alanine Aminotransfer ALT/SGPT 47 U/L (13-56); Albumin, Serum 3.6 g/dL (3.2-5.0); Alkaline Phosphatase 106 U/L (45-117); Anion Gap 10 (5-15); BUN 13 mg/dL (7-18); BUN/Creat Ratio 14.9 RATIO (10-20); Bilirubin, Direct 0.19 mg/dL (0.00-0.30); CRP 7.93 mg/L (0.0-3.0); Calcium,Total 9.4 mg/dL (8.5-10.1); Chloride 105 mmol/L (98-107); Creatinine, Serum 0.87 mg/dL (0.55-1.02); EST Glomerular Filtration Rate 70 mL/min (>60); Est Glom Filt Rate - Afr Amer 85 mL/min (>60); Ferritin 63 ng/mL (8-252); Glucose 100 mg/dL (74-106); Magnesium 1.9 mg/dL (1.6-2.6); Protein, Total 7.6 g/dL (6.4-8.2); Sodium Level 142 mmol/L (136-145); Uric Acid 4.2 mg/dL (2.6-6.0)
[2018-04-04 12:57] LABS: POSITIVE COUNT NO; POSITIVE DIFFERENTIAL NO; POSITIVE MORPHOLOGY NO
[2018-04-04 13:21] LABS: Microalbumin,Random Urine 25.2 mg/L (NO RANGE EST.); Microalbumin:Creatinine Ratio 21.4 mg/g CRE (<30 mg/g CRE)
== END ==
PROVIDERS: Family Provider Family Medicine; PCP Family Medicine; Visit Provider Family Medicine
DX: N20.0 Calculus of kidney (principal); E11.9 Type 2 diabetes mellitus without complications; K76.0 Fatty (change of) liver, not elsewhere classified
CPT/HCPCS: 36415; 80048; 80076; 81001; 82043; 82140; 82570; 82728; 83036; 83735; 84100; 84550; 85025; 86140

== ENCOUNTER → 2018-05-20 11:02 | Outpatient (CLI) | payer OTHER, SELFPAY ==
[2018-04-04 09:44] VITALS: BMI 38.7
[2018-05-20 12:56] LABS: Hemoglobin A1c 9.5 % (4.2-6.3)
[2018-05-20 12:57] LABS: ALB/GLOB Ratio 0.8 RATIO (0.9-2.4); AST(SGOT) 54 U/L (15-37); Alanine Aminotransfer ALT/SGPT 93 U/L (13-56); Albumin, Serum 3.6 g/dL (3.2-5.0); Alkaline Phosphatase 105 U/L (45-117); Anion Gap 11 (5-15); BUN 18 mg/dL (7-18); BUN/Creat Ratio 22.3 RATIO (10-20); Calcium,Total 9.2 mg/dL (8.5-10.1); Chloride 104 mmol/L (98-107); Cholesterol 213 mg/dL (200); Creatinine, Serum 0.81 mg/dL (0.55-1.02); EST Glomerular Filtration Rate 76 mL/min (>60); Est Glom Filt Rate - Afr Amer 92 mL/min (>60); Globulin 4.3 g/dL (2.2-4.2); Glucose 181 mg/dL (74-106); High Density Lipoprotein 41 mg/dL; Potassium 3.7 mmol/L (3.5-5.1); Protein, Total 7.9 g/dL (6.4-8.2); Sodium Level 140 mmol/L (136-145); Thyroid Stim Hormone (TSH) 0.83 uIU/mL (0.358-3.74); Triglycerides 210 mg/dL; Very Low Density Lipoprotein 42 mg/dL (5-40)
[2018-05-23 16:46] LABS: Anti-Thyroglobulin AB < 1.0 IU/mL (0.0-0.9); Thyroglobulin, Serum Qt. 0.2 ng/mL (1.5-38.5)
== END ==
PROVIDERS: Family Provider Family Medicine; PCP Family Medicine; Referring Provider Internal Medicine Endocrinology, Diabetes & Metabolism; Visit Provider Internal Medicine Endocrinology, Diabetes & Metabolism
DX: E11.65 Type 2 diabetes mellitus with hyperglycemia (principal); E89.0 Postprocedural hypothyroidism; E78.2 Mixed hyperlipidemia
CPT/HCPCS: 36415; 80053; 80061; 83036; 84432; 84443; 86800

== ENCOUNTER → 2018-06-21 07:02 | Outpatient (CLI) | payer OTHER, SELFPAY ==
[2018-04-04 09:44] VITALS: BMI 38.7
[2018-06-21 10:15] LABS: Magnesium 1.9 mg/dL (1.6-2.6)
[2018-06-21 10:28] LABS: Vitamin D,25 Hydroxy 41.3 ng/mL (29.95-100.01)
[2018-06-21 10:29] LABS: PTHIN 24.6 pg/mL (18.4-80.1)
== END ==
PROVIDERS: Family Provider Family Medicine; PCP Family Medicine; Referring Provider Internal Medicine Endocrinology, Diabetes & Metabolism; Visit Provider Internal Medicine Endocrinology, Diabetes & Metabolism
DX: C73 Malignant neoplasm of thyroid gland (principal); E55.9 Vitamin D deficiency, unspecified; N20.0 Calculus of kidney
CPT/HCPCS: 36415; 82306; 83735; 83970

== ENCOUNTER → 2018-06-23 07:14 | Outpatient (CLI) | payer OTHER, SELFPAY ==
[2018-04-04 09:44] VITALS: BMI 38.7
== END ==
PROVIDERS: Family Provider Family Medicine; PCP Family Medicine; Referring Provider Internal Medicine Endocrinology, Diabetes & Metabolism; Visit Provider Internal Medicine Endocrinology, Diabetes & Metabolism
DX: C73 Malignant neoplasm of thyroid gland (principal); E55.9 Vitamin D deficiency, unspecified; N20.0 Calculus of kidney

== ENCOUNTER → 2018-07-19 07:00 | Outpatient (CLI) | payer OTHER, SELFPAY ==
[2018-04-04 09:44] VITALS: BMI 38.7
[2018-07-19 10:04] LABS: Anion Gap 12 (5-15); BUN 22 mg/dL (7-18); BUN/Creat Ratio 24.3 RATIO (10-20); Calcium,Total 9.5 mg/dL (8.5-10.1); Chloride 101 mmol/L (98-107); EST Glomerular Filtration Rate 67 mL/min (>60); Est Glom Filt Rate - Afr Amer 81 mL/min (>60); Glucose 154 mg/dL (74-106); Magnesium 1.7 mg/dL (1.6-2.6); Potassium 4.1 mmol/L (3.5-5.1); Sodium Level 139 mmol/L (136-145)
== END ==
PROVIDERS: Family Provider Family Medicine; PCP Family Medicine; Referring Provider Internal Medicine Endocrinology, Diabetes & Metabolism; Visit Provider Internal Medicine Endocrinology, Diabetes & Metabolism
DX: E11.21 Type 2 diabetes mellitus with diabetic nephropathy (principal); E83.42 Hypomagnesemia
CPT/HCPCS: 36415; 80048; 83735

== ENCOUNTER → 2018-08-24 07:13 | Outpatient (CLI) | payer OTHER, SELFPAY ==
[2018-04-04 09:44] VITALS: BMI 38.7
[2018-08-24 10:50] LABS: Hemoglobin A1c 8.4 % (4.2-6.3)
[2018-08-24 11:03] LABS: ALB/GLOB Ratio 0.8 RATIO (0.9-2.4); AST(SGOT) 33 U/L (15-37); Alanine Aminotransfer ALT/SGPT 66 U/L (13-56); Albumin, Serum 3.4 g/dL (3.2-5.0); Alkaline Phosphatase 94 U/L (45-117); Anion Gap 8 (5-15); BUN 15 mg/dL (7-18); BUN/Creat Ratio 15.6 RATIO (10-20); Calcium,Total 9.1 mg/dL (8.5-10.1); Chloride 105 mmol/L (98-107); Cholesterol 217 mg/dL (200); Creatinine, Serum 0.96 mg/dL (0.55-1.02); EST Glomerular Filtration Rate 62 mL/min (>60); Est Glom Filt Rate - Afr Amer 76 mL/min (>60); Globulin 4.2 g/dL (2.2-4.2); Glucose 240 mg/dL (74-106); High Density Lipoprotein 45 mg/dL; Potassium 3.7 mmol/L (3.5-5.1); Protein, Total 7.6 g/dL (6.4-8.2); Sodium Level 138 mmol/L (136-145); Thyroid Stim Hormone (TSH) 0.28 uIU/mL (0.358-3.74); Triglycerides 361 mg/dL; Very Low Density Lipoprotein 72 mg/dL (5-40)
[2018-08-24 11:09] LABS: Microalbumin,Random Urine 8.4 mg/L (NO RANGE EST.); Microalbumin:Creatinine Ratio 10.2 mg/g CRE (<30 mg/g CRE)
[2018-08-26 11:19] LABS: Thyroglobulin Antibody < 1.0 IU/mL (0.0-0.9)
== END ==
PROVIDERS: Family Provider Family Medicine; PCP Family Medicine; Referring Provider Internal Medicine Endocrinology, Diabetes & Metabolism; Visit Provider Internal Medicine Endocrinology, Diabetes & Metabolism
DX: E11.65 Type 2 diabetes mellitus with hyperglycemia (principal); E78.2 Mixed hyperlipidemia; C73 Malignant neoplasm of thyroid gland
CPT/HCPCS: 36415; 80053; 80061; 82043; 82570; 83036; 84443; 86800

== ENCOUNTER → 2018-10-31 | Outpatient (CLI) | payer OTHER, SELFPAY ==
[2018-04-04 09:44] VITALS: BMI 38.7
[2018-10-31 12:39] LABS: Erythrocyte Sedimentation Rate 46 mm/hr (0-30)
[2018-10-31 12:41] LABS: Basophil# 0.04 X10^3/uL; Basophil% 0.5 % (0-1); Eosinophil# 0.64 X10^3/uL; Eosinophils% 7.7 % (0-5); Hemoglobin 13.6 g/dl (12.0-15.0); Lymphocyte % 34.7 % (19-41); Mean Corp Hgb Conc 33.2 g/gl (32-36); Mean Corpuscular Hgb 27.9 pg (27.0-32.0); Mean Platelet Vol. 9.9 fl (6.2-12.0); Monocyte# 0.78 X10^3/uL; Monocyte% 9.3 % (0-10); Neutrophil # 3.97 X10^3/uL (2.7-7.7); Neutrophil % 47.4 % (47-70); Platelet Count 314 K/mm3 (150-450); RBC Distribution Width CV 13.2 % (11.6-14.6); RBC Distribution Width SD 39.7 fl (35.1-43.9); Red Blood Count 4.88 M/mm3 (4.2-5.4); White Blood Count 8.4 K/mm3 (4.4-11.0)
[2018-10-31 12:48] LABS: POSITIVE COUNT NO; POSITIVE DIFFERENTIAL NO; POSITIVE MORPHOLOGY NO
[2018-10-31 12:54] LABS: PTHIN 27.7 pg/mL (18.4-80.1)
[2018-10-31 13:03] LABS: Vitamin B12 399 pg/mL (211-911); Vitamin D,25 Hydroxy 51.1 ng/mL (29.95-100.01)
[2018-10-31 13:41] LABS: ALB/GLOB Ratio 0.8 RATIO (0.9-2.4); AST(SGOT) 72 U/L (15-37); Alanine Aminotransfer ALT/SGPT 128 U/L (13-56); Albumin, Serum 3.4 g/dL (3.2-5.0); Alkaline Phosphatase 96 U/L (45-117); Anion Gap 12 (5-15); BUN 14 mg/dL (7-18); BUN/Creat Ratio 16.8 RATIO (10-20); Calcium,Total 9.2 mg/dL (8.5-10.1); Chloride 106 mmol/L (98-107); Creatinine, Serum 0.83 mg/dL (0.55-1.02); EST Glomerular Filtration Rate 73 mL/min (>60); Est Glom Filt Rate - Afr Amer 89 mL/min (>60); Ferritin 117 ng/mL (8-252); Globulin 4.3 g/dL (2.2-4.2); Glucose 191 mg/dL (74-106); Potassium 3.9 mmol/L (3.5-5.1); Protein, Total 7.7 g/dL (6.4-8.2); Sodium Level 140 mmol/L (136-145); T4 Free Direct 1.48 ng/dL (0.76-1.46); Thyroid Stim Hormone (TSH) 0.13 uIU/mL (0.358-3.74)
== END | disposition home or self-care (01) ==
LOC: MTLAB 11:06
PROVIDERS: Family Provider Family Medicine; PCP Family Medicine; Referring Provider Family Medicine; Visit Provider Family Medicine
DX: K76.0 Fatty (change of) liver, not elsewhere classified (principal); R20.2 Paresthesia of skin; N20.0 Calculus of kidney
CPT/HCPCS: 36415; 80053; 82306; 82607; 82728; 82746; 83970; 84439; 84443; 85025; 85652; 86140

== ENCOUNTER → 2018-11-04 | Outpatient (CLI) | payer OTHER, SELFPAY ==
[2018-04-04 09:44] VITALS: BMI 38.7
--- NOTE | 2018-11-04 09:26 | US_ITS ---
STUDY: ABDOMINAL ULTRASOUND REASON FOR EXAM: Female, 62 years old. History of fatty liver and renal stones TECHNIQUE: Transabdominal ultrasound was performed with real-time and static yusuf scale imaging. TECHNICAL QUALITY: Adequate. COMPARISON: CT dated September 12, 2017 FINDINGS: Liver: The liver measures 21.5 cm. There is increased echogenicity consistent with fatty infiltration. The bile ducts are within normal limits. There is hepatic color flow. The direction of portal flow is hepatopetal. There is no demonstrated mass lesion. Gallbladder: The patient is status post cholecystectomy. Common Bile Duct (C.B.D.): The common bile duct measures 5.1 mm. Pancreas: Normal size of the head, body and tail of the pancreas. There is normal echogenicity of the pancreas. There is no demonstrated pancreatic mass or cyst. Spleen: Normal size of the spleen. The spleen measures 11.2 cm. Right Kidney: Normal size of the right kidney. The right kidney measures 11.6 cm in length. Normal renal cortex. There is a 1.3 cm minimally complex right renal cyst. There is a nonobstructing 8 mm renal calculus. There is no right hydronephrosis. Left Kidney: Normal size of the left kidney. The left kidney measures 12.1 cm in length. Normal renal cortex. There is a 2.5 cm left renal cyst. There is no left hydronephrosis. There is a nonobstructing 8 mm calculus. Aorta: The visualized abdominal aorta is within normal limits. I.V.C.: The IVC is patent. There is no ascites. US/Abdomen Complete IMPRESSION: Fatty infiltration of the liver associated with hepatomegaly. Bilateral nonobstructing renal calculi measuring up to 8 mm. Bilateral renal cysts. Electronically Signed: Beverly Rowe MD at 17:00 EDT Tel , Service support ,
== END | disposition home or self-care (01) ==
LOC: US 09:23
PROVIDERS: Family Provider Family Medicine; PCP Family Medicine; Referring Provider Family Medicine; Visit Provider Family Medicine
DX: N20.0 Calculus of kidney (principal)
CPT/HCPCS: 76700

== ENCOUNTER → 2018-11-21 | Outpatient (CLI) | payer OTHER, SELFPAY ==
[2018-04-04 09:44] VITALS: BMI 38.7
[2018-11-21 14:02] LABS: ALB/GLOB Ratio 0.9 RATIO (0.9-2.4); AST(SGOT) 55 U/L (15-37); Alanine Aminotransfer ALT/SGPT 112 U/L (13-56); Albumin, Serum 3.5 g/dL (3.2-5.0); Alkaline Phosphatase 99 U/L (45-117); Anion Gap 9 (5-15); BUN 11 mg/dL (7-18); BUN/Creat Ratio 14.3 RATIO (10-20); Chloride 109 mmol/L (98-107); Creatinine, Serum 0.77 mg/dL (0.55-1.02); EST Glomerular Filtration Rate 81 mL/min (>60); Est Glom Filt Rate - Afr Amer 97 mL/min (>60); Globulin 4.1 g/dL (2.2-4.2); Glucose 138 mg/dL (74-106); Potassium 3.8 mmol/L (3.5-5.1); Protein, Total 7.6 g/dL (6.4-8.2); Sodium Level 142 mmol/L (136-145)
[2018-11-21 14:05] LABS: Hemoglobin A1c 8.8 % (4.2-6.3)
== END | disposition home or self-care (01) ==
LOC: MTLAB 11:09
PROVIDERS: Family Provider Family Medicine; PCP Family Medicine; Referring Provider Internal Medicine Endocrinology, Diabetes & Metabolism; Visit Provider Internal Medicine Endocrinology, Diabetes & Metabolism
DX: E11.65 Type 2 diabetes mellitus with hyperglycemia (principal)
CPT/HCPCS: 36415; 80053; 83036

== ENCOUNTER → 2019-01-17 | Outpatient (CLI) | payer OTHER, SELFPAY ==
[2018-04-04 09:44] VITALS: BMI 38.7
[2019-01-17 10:41] LABS: ALB/GLOB Ratio 0.9 RATIO (0.9-2.4); AST(SGOT) 24 U/L (15-37); Alanine Aminotransfer ALT/SGPT 62 U/L (13-56); Albumin, Serum 3.6 g/dL (3.2-5.0); Alkaline Phosphatase 84 U/L (45-117); Anion Gap 9 (5-15); BUN 21 mg/dL (7-18); BUN/Creat Ratio 25.1 RATIO (10-20); Calcium,Total 9.5 mg/dL (8.5-10.1); Chloride 107 mmol/L (98-107); Creatinine, Serum 0.84 mg/dL (0.55-1.02); EST Glomerular Filtration Rate 73 mL/min (>60); Est Glom Filt Rate - Afr Amer 89 mL/min (>60); Globulin 4.2 g/dL (2.2-4.2); Glucose 145 mg/dL (74-106); Potassium 3.3 mmol/L (3.5-5.1); Protein, Total 7.8 g/dL (6.4-8.2); Sodium Level 142 mmol/L (136-145)
== END | disposition home or self-care (01) ==
LOC: MTLAB 07:10
PROVIDERS: Family Provider Family Medicine; PCP Family Medicine; Referring Provider Internal Medicine Endocrinology, Diabetes & Metabolism; Visit Provider Internal Medicine Endocrinology, Diabetes & Metabolism
DX: E11.65 Type 2 diabetes mellitus with hyperglycemia (principal)
CPT/HCPCS: 36415; 80053

== ENCOUNTER → 2019-03-22 14:00 | Outpatient (CLI) | payer OTHER, SELFPAY ==
[2018-04-04 09:44] VITALS: BMI 38.7
[2019-03-24 20:57] LABS: Anti-Thyroglobulin AB < 1.0 IU/mL (0.0-0.9); Thyroglobulin, Serum Qt. 0.2 ng/mL (1.5-38.5)
== END ==
PROVIDERS: Family Provider Family Medicine; PCP Family Medicine; Referring Provider Internal Medicine Endocrinology, Diabetes & Metabolism; Visit Provider Internal Medicine Endocrinology, Diabetes & Metabolism
DX: C73 Malignant neoplasm of thyroid gland (principal)
CPT/HCPCS: 36415; 84432; 86800

== ENCOUNTER → 2019-04-05 09:55 | Outpatient (CLI) | payer OTHER, SELFPAY ==
[2018-04-04 09:44] VITALS: BMI 38.7
== END ==
PROVIDERS: Family Provider Family Medicine; PCP Family Medicine; Referring Provider Internal Medicine Endocrinology, Diabetes & Metabolism; Visit Provider Internal Medicine Endocrinology, Diabetes & Metabolism
DX: C73 Malignant neoplasm of thyroid gland (principal)
CPT/HCPCS: 36415

== ENCOUNTER → 2019-04-06 11:36 | Outpatient (CLI) | payer OTHER, SELFPAY ==
[2018-04-04 09:44] VITALS: BMI 38.7
--- NOTE | 2019-04-06 11:41 | RAD_ITS ---
STUDY: X-RAY - PELVIS AND BILATERAL HIPS REASON FOR EXAM: Female, 63 years old. Left hip pain TECHNIQUE: AP view of the pelvis.? 2 views of the right hip, and 2 views of the left hip were obtained. COMPARISON: None. FINDINGS: There is a non-specific bowel gas pattern. Normal visualized soft tissue structures. Normal bilateral iliac wings, sacroiliac joints and visualized sacrum. Normal bilateral superior and inferior pubic rami. Normal pubic symphysis. Normal bilateral ischial tuberosities. Normal visualized right femoral head. Normal right acetabulum. Normal right hip joint. There is a small calcification adjacent to the right greater trochanter. Normal visualized left femoral head. Normal left acetabulum. Normal left hip joint. RAD/Hips B/L min 2 views w/ Pelvis IMPRESSION: Small calcification adjacent to the right greater trochanter which may represent calcific tendinitis/bursitis. The study is otherwise unremarkable. Electronically Signed: Carl Garrison MD at 23:16 EST , Service support ,
--- NOTE | 2019-04-06 11:41 | RAD_ITS ---
STUDY: X-RAY - LEFT KNEE REASON FOR EXAM: Female, 63 years old. Knee pain TECHNIQUE: 4 view(s) of the knee. COMPARISON: None. FINDINGS: Normal visualized distal femur. Normal visualized proximal tibia and fibula. Normal proximal tibiofibular articulation. There is mild degenerative arthrosis of the medial femorotibial compartment. There is mild degenerative arthrosis of the lateral femorotibial compartment. Normal patellofemoral articulation. The soft tissue structures are unremarkable. RAD/Knee 4 or More Views IMPRESSION: Minimal degenerative changes of the medial and lateral knee compartments. Electronically Signed: Carl Garrison MD at 23:14 EST , Service support ,
--- NOTE | 2019-04-06 11:43 | RAD_ITS ---
STUDY: X-RAY - RIGHT KNEE REASON FOR EXAM: Female, 63 years old. Knee pain TECHNIQUE: 4 view(s) of the knee. COMPARISON: None. FINDINGS: Normal visualized distal femur. Normal visualized proximal tibia and fibula. Normal proximal tibiofibular articulation. Normal medial femorotibial compartment. Normal lateral femorotibial compartment. Normal patellofemoral articulation. The soft tissue structures are unremarkable. RAD/Knee 4 or More Views IMPRESSION: Normal x-ray examination of the knee. Electronically Signed: Carl Garrison MD at 23:14 EST , Service support ,
== END ==
PROVIDERS: Family Provider Family Medicine; PCP Family Medicine; Referring Provider Family Medicine; Visit Provider Family Medicine
DX: M25.551 Pain in right hip (principal); M25.552 Pain in left hip; M25.561 Pain in right knee; M25.562 Pain in left knee
CPT/HCPCS: 73521; 73564

== ENCOUNTER → 2019-04-20 10:53 | Outpatient (CLI) | payer OTHER, SELFPAY ==
[2018-04-04 09:44] VITALS: BMI 38.7
[2019-04-20 12:41] LABS: ALB/GLOB Ratio 0.8 RATIO (0.9-2.4); AST(SGOT) 44 U/L (15-37); Alanine Aminotransfer ALT/SGPT 79 U/L (13-56); Albumin, Serum 3.5 g/dL (3.2-5.0); Alkaline Phosphatase 86 U/L (45-117); Anion Gap 10 (5-15); BUN 20 mg/dL (7-18); BUN/Creat Ratio 20.4 RATIO (10-20); Calcium,Total 9.5 mg/dL (8.5-10.1); Chloride 107 mmol/L (98-107); Creatinine, Serum 0.98 mg/dL (0.55-1.02); EST Glomerular Filtration Rate 61 mL/min (>60); Est Glom Filt Rate - Afr Amer 74 mL/min (>60); Globulin 4.3 g/dL (2.2-4.2); Glucose 214 mg/dL (74-106); Potassium 3.8 mmol/L (3.5-5.1); Protein, Total 7.8 g/dL (6.4-8.2); Sodium Level 140 mmol/L (136-145)
== END ==
PROVIDERS: Family Provider Family Medicine; PCP Family Medicine; Referring Provider Internal Medicine Endocrinology, Diabetes & Metabolism; Visit Provider Internal Medicine Endocrinology, Diabetes & Metabolism
DX: E11.65 Type 2 diabetes mellitus with hyperglycemia (principal)
CPT/HCPCS: 36415; 80053

== ENCOUNTER → 2019-04-24 15:21 | Outpatient (CLI) | payer OTHER, SELFPAY ==
[2018-04-04 09:44] VITALS: BMI 38.7
[2019-04-27 16:07] LABS: PROEL- A/G Ratio 0.9 (0.7-1.7); PROEL- Albumin 3.6 g/dL (2.9-4.4); PROEL- Alpha-1 Globulin 0.2 g/dL (0.0-0.4); PROEL- Beta Globulin 1.4 g/dL (0.7-1.3); PROEL- Gamma Globulin 1.2 g/dL (0.4-1.8); PROEL- Globulin, Total 3.8 g/dL (2.2-3.9); PROEL- TOTAL PROTEIN 7.4 g/dL (6.0-8.5); PROELU- Alpha-1-Globulin,Ur 1.4 % (.); PROELU- Alpha-2-Globulin,Ur 12.7 % (.); PROELU- Beta Globulin, Ur 28.6 % (.); PROELU- Gamma Globulin, Ur 20.3 % (.); Total Protein, Ur 7.5 mg/dL (Not Estab.)
== END ==
PROVIDERS: Family Provider Family Medicine; PCP Family Medicine; Referring Provider Internal Medicine Endocrinology, Diabetes & Metabolism; Visit Provider Internal Medicine Endocrinology, Diabetes & Metabolism
DX: E11.65 Type 2 diabetes mellitus with hyperglycemia (principal)
CPT/HCPCS: 36415; 84165; 84166

== ENCOUNTER 2019-04-27 11:00 | Outpatient (RCR) | payer OTHER, SELFPAY ==
[2018-04-04 09:44] VITALS: BMI 38.7
--- NOTE | 2019-04-19 10:09 | HP.PTEVAL ---
Patient's Visit Information CARLOS CASTILLO is a 63 year old F referred to Physical Therapy by Amrik Rodriguez MD with a diagnosis of L hip pain. Date of Evaluation: 04/19/19 Physical Therapist: Randall Bonilla, PT, ATC - Visit Plan Frequency: 1x/Week Duration: 1 Week Plan: Issue and Edu pt on HEP of core and L hip strengthening - Subjective Findings: Pt reports she has had L hip and knee pain for greater than 2 months. Pt reports her pain had an insidious onset in nature. pt reports she had x rays which revealed calcific tendonites in L hip. Pt reports her pain is worse with sitting, lying down, and bending forward. Pt notes no LBP at this time. Pt reports she cant sleep longer than 3 hours secondary to her pain. Pt reports she does have active thyroid cancer and was hoping that had nothing to do with that. 6/10 pain at rest, 8/10 pain at worst (middle of the night) - Pain L hip Pain Intensity (Out of 10): 6 Pain Intensity Range: 8 - Objective Neuro: B LE sensation is WNL to light touch. ROM: B LE's are WFL. MMT: B LE's are 5/5 throughout. Special testing: No positive tests at this time - Goals Goal 1:: I with HEP Goal Time Frame: 1 Week - Rehabilitation Potential Physical Therapy Diagnosis: L hip pain and intolerance for supine lying with no mechanical response Rehabilitation Potential: Fair - Anticipated Interventions Patient/Client Instruction: Educate patient on: Condition, Plan of Care For the Purpose of:: To improve self management Therapeutic Exercise to Include: Strength training, Dynamic Lumbar Stabilization For the Purpose of:: To decrease pain, To improve muscle performance and motor function Cryotherapy (ice pack, ice massage): Yes For the Purpose of:: To decrease pain Thank you for the opportunity to evaluate your patient. For Medicare and Medicare HMO plans, please review the plan of care and approve it. It will need to be FAXED BACK to us at [phone] for Medicare purposes. For Medicare only, by signing this I certify the plan of care. Please let me know if there are questions or concerns regarding this plan of care. Physician Signature: Date:
--- NOTE | 2019-04-27 12:04 | HP.PTDCSUM ---
HP - PT D/C Summary It has been my pleasure to treat CARLOS CASTILLO under orders from Amrik Rodriguez MD, for the diagnosis of L hip pain for a total of 2 visit(s). Discharge Date: Please see the following information for a summary of their discharge status. - Subjective Subjective: L hip is sore today - Pain L hip Pain Intensity (Out of 10): 4 - Objective Objective/Function: Pt is now I with HEP - Goals Goal 1:: I with HEP Goal Progress: Goal Met - Plan Plan: Discharge - D/C Information If there are questions or concerns regarding this patient's physical therapy, please feel free to call me at [phone]. Thank you for the referral of this patient. Sincerely, Randall Bonilla, PT, ATC
== END 2019-04-27 19:00 | disposition home or self-care (01) ==
LOC: PT 11:00
PROVIDERS: Family Provider Family Medicine; PCP Family Medicine; Referring Provider Family Medicine; Visit Provider Family Medicine
DX: M25.552 Pain in left hip (principal); M25.562 Pain in left knee
CPT/HCPCS: 97161; 97530

== ENCOUNTER → 2019-05-02 12:49 | Outpatient (CLI) | payer OTHER, SELFPAY ==
[2018-04-04 09:44] VITALS: BMI 38.7
--- NOTE | 2019-05-02 12:52 | RAD_ITS ---
STUDY: X-RAY - LUMBAR SPINE REASON FOR EXAM: Female, 63 years old. Left hip pain TECHNIQUE: 5 view(s) of the lumbar spine were obtained. COMPARISON: None FINDINGS: Normal lumbar lordosis. There is minor dextro scoliosis. There is a normal alignment of the vertebrae. There is narrowed disc space at L4-5 and L5-S1 with endplate spurring.. Tiny left renal calculi are noted.. RAD/L/S Spine Min 4 Views IMPRESSION: Minor scoliosis and degenerative changes No acute fracture or other significant bony pathology. Incidental finding of left nephrolithiasis Electronically Signed: King Laureano MD at 21:33 EST , Service support ,
== END ==
PROVIDERS: Family Provider Family Medicine; PCP Family Medicine; Referring Provider Family Medicine; Visit Provider Family Medicine
DX: M25.552 Pain in left hip (principal)
CPT/HCPCS: 72110

== ENCOUNTER → 2019-05-29 15:18 | Outpatient (CLI) | payer OTHER, SELFPAY ==
[2018-04-04 09:44] VITALS: BMI 38.7
[2019-05-29 17:32] LABS: Hematocrit 44.3 % (37-47); Hemoglobin 14.4 g/dL (12.0-15.0); Mean Corp Hgb Conc 32.5 g/dL (32-36); Mean Corpuscular Hgb 27.4 pg (27.0-32.0); Mean Corpuscular Volume 84.4 fL (81-99); Mean Platelet Vol. 9.1 fl (6.2-12.0); Platelet Count 329 K/mm3 (150-450); RBC Distribution Width CV 13.8 % (11.6-14.6); RBC Distribution Width SD 42.5 fl (35.1-43.9); Red Blood Count 5.25 M/mm3 (4.2-5.4); White Blood Count 9.4 K/mm3 (4.4-11.0)
[2019-05-29 18:03] LABS: Vitamin B12 409 pg/mL (211-911); Vitamin D,25 Hydroxy 57.8 ng/mL (29.95-100.01)
[2019-05-29 18:30] LABS: ALB/GLOB Ratio 0.9 RATIO (0.9-2.4); AST(SGOT) 25 U/L (15-37); Alanine Aminotransfer ALT/SGPT 50 U/L (13-56); Albumin, Serum 3.5 g/dL (3.2-5.0); Alkaline Phosphatase 87 U/L (45-117); Anion Gap 6 (5-15); BUN 17 mg/dL (7-18); BUN/Creat Ratio 17.9 RATIO (10-20); CPK Total, Creatine Kinase 47 U/L (26-192); CRP 4.45 mg/L (0.0-3.0); Calcium,Total 9.5 mg/dL (8.5-10.1); Chloride 106 mmol/L (98-107); Creatinine, Serum 0.95 mg/dL (0.55-1.02); EST Glomerular Filtration Rate 63 mL/min (>60); Est Glom Filt Rate - Afr Amer 76 mL/min (>60); Globulin 4.1 g/dL (2.2-4.2); Glucose 197 mg/dL (74-106); Potassium 3.9 mmol/L (3.5-5.1); Protein, Total 7.6 g/dL (6.4-8.2); Sodium Level 138 mmol/L (136-145)
[2019-06-06 09:07] LABS: Aldolase 4.9 U/L (3.3-10.3); Vitamin A, Retinol 64.4 ug/dL (22.0-69.5)
== END ==
PROVIDERS: Family Provider Family Medicine; PCP Family Medicine; Referring Provider Family Medicine; Visit Provider Family Medicine
DX: R10.32 Left lower quadrant pain (principal); K12.30 Oral mucositis (ulcerative), unspecified
CPT/HCPCS: 36415; 80053; 82085; 82306; 82550; 82607; 82746; 84590; 85027; 86140

== ENCOUNTER → 2019-06-06 14:39 | Outpatient (CLI) | payer OTHER, SELFPAY ==
[2018-04-04 09:44] VITALS: BMI 38.7
--- NOTE | 2019-06-06 14:46 | CT_ITS ---
STUDY: CT SCAN HIP LEFT REASON FOR EXAM: Female, 63 years old. LEFT HIP/GROIN PAIN-DOWN INTO LEFT KNEE RADIATION DOSAGE (If Supplied By Facility): CTDIvol = ( 31.85 ) mGy, DLP = ( 1623.09 ) mGycm. Individualized dose optimization techniques were used for this CT.? TECHNIQUE: Multiple axial tomographic images of the left hip joint were obtained following intravenous administration of 100 mL of Isovue-300. Coronal and sagittal reconstruction was obtained as well COMPARISON: None. FINDINGS: There is a moderate degree of joint space narrowing suggestive of osteoarthritis. There is no evidence of fracture or dislocation. There is evidence of a mild degree of degenerative changes of the left sacroiliac joint. There is evidence of disc space narrowing and disc degeneration at the L4-L5 and L5-S1 levels with posterior spondylosis at the L4-L5 level. On the limited imaging available at that site, there is suggestion of spinal stenosis and left foraminal stenosis. Incidental note is made of a 2.7 cm x 2.9 cm cyst in the lower pole of the left kidney. CT/Extremity Lower WITH Contrast IMPRESSION: Moderate degree of osteoarthritis of the left hip joint. Degenerative changes in the lower lumbar spine as described with findings suggestive of a spinal stenosis and left neural foraminal stenosis at the L4-L5 level worse on the left side. Correlation with MRI or dedicated CT scan of the lumbar spine is recommended. Electronically Signed: Blair Valencia, at 8:42 EST , Service support ,
== END ==
PROVIDERS: PCP Family Medicine; Referring Provider Family Medicine; Visit Provider Family Medicine
DX: M87.052 Idiopathic aseptic necrosis of left femur (principal)
CPT/HCPCS: 73701; Q9967

== ENCOUNTER → 2019-06-22 09:02 | Outpatient (CLI) | payer OTHER, SELFPAY ==
[2019-06-22 08:22] VITALS: BMI 38.7
[2019-06-22 10:40] LABS: Cholesterol 215 mg/dL (200); High Density Lipoprotein 48 mg/dL; Triglycerides 323 mg/dL; Very Low Density Lipoprotein 65 mg/dL (5-40)
[2019-06-22 10:46] LABS: Hemoglobin A1c 7.6 % (4.2-6.3)
[2019-06-22 10:50] LABS: Microalbumin,Random Urine 7.5 mg/L (NO RANGE EST.); Microalbumin:Creatinine Ratio 9.3 mg/g CRE (<30 mg/g CRE)
== END ==
PROVIDERS: PCP Family Medicine; Referring Provider Internal Medicine Endocrinology, Diabetes & Metabolism; Visit Provider Internal Medicine Endocrinology, Diabetes & Metabolism
DX: E11.65 Type 2 diabetes mellitus with hyperglycemia (principal); E78.2 Mixed hyperlipidemia; C73 Malignant neoplasm of thyroid gland
CPT/HCPCS: 36415; 80061; 82043; 82570; 83036

== ENCOUNTER → 2019-06-26 13:02 | Outpatient (CLI) | payer OTHER, SELFPAY ==
[2018-04-04 09:44] VITALS: BMI 38.7
[2019-06-22 08:22] VITALS: BMI 38.7
--- NOTE | 2019-06-26 13:17 | MRI_ITS ---
STUDY: MRI LUMBAR SPINE WITHOUT CONTRAST REASON FOR EXAM: Female, 63 years old. Spinal stenosis left leg radiculopathy TECHNIQUE: Standardized fat and water weighted pulse sequences were obtained in the sagittal and axial planes. COMPARISON: 02 May 2019 plain films FINDINGS: Lumbar spine is intact and aligned with normal marrow, paraspinous soft tissues and SI joints. There is severe elevation of body habitus. There is subchondral chronic degenerative marrow conversion at L3-L4 and L4-L5 and disc degeneration. There are possible bilateral renal cysts. Conus medullaris terminates at T12-L1. Cauda equina is restricted at L3-L4 and L4-L5. L3-L4 has mild to moderate spondylotic thecal sac compression with patent lateral recesses and mild bilateral foraminal stenosis. L4-L5 has mild spondylotic thecal sac stenosis, right lateral recess stenosis and moderate right foraminal stenosis. Left lateral recess and foramen are patent. Remainder of the levels of patent canal. MRI/Spine Lumbar (Routine) IMPRESSION: 1. Mild to moderate spondylotic thecal sac stenosis at L3-L4, mild at L4-L5. 2. Moderate right L4-L5 lateral recess and foraminal stenosis. Electronically Signed: Silas John, at 16:45 EST Tel , Service support ,
== END ==
PROVIDERS: PCP Family Medicine; Referring Provider Family Medicine; Visit Provider Family Medicine
DX: M48.00 Spinal stenosis, site unspecified (principal)
CPT/HCPCS: 72148

== ENCOUNTER → 2019-11-03 10:25 | Outpatient (CLI) | payer OTHER, SELFPAY ==
[2019-06-22 08:22] VITALS: BMI 38.7
[2019-11-03 13:09] LABS: Hemoglobin A1c 8.1 % (3.8-5.6)
[2019-11-03 13:27] LABS: ALB/GLOB Ratio 0.8 RATIO (0.9-2.4); AST(SGOT) 43 U/L (15-37); Alanine Aminotransfer ALT/SGPT 81 U/L (13-56); Albumin, Serum 3.5 g/dL (3.2-5.0); Alkaline Phosphatase 90 U/L (45-117); Anion Gap 7 (5-15); BUN 14 mg/dL (7-18); BUN/Creat Ratio 17.2 RATIO (10-20); Calcium,Total 9.1 mg/dL (8.5-10.1); Chloride 107 mmol/L (98-107); Creatinine, Serum 0.82 mg/dL (0.55-1.02); EST Glomerular Filtration Rate 75 mL/min (>60); Est Glom Filt Rate - Afr Amer 91 mL/min (>60); Globulin 4.2 g/dL (2.2-4.2); Glucose 180 mg/dL (74-106); Potassium 3.5 mmol/L (3.5-5.1); Protein, Total 7.7 g/dL (6.4-8.2); Sodium Level 140 mmol/L (136-145)
== END ==
PROVIDERS: PCP Family Medicine; Referring Provider Internal Medicine Endocrinology, Diabetes & Metabolism; Visit Provider Internal Medicine Endocrinology, Diabetes & Metabolism
DX: E11.65 Type 2 diabetes mellitus with hyperglycemia (principal); C73 Malignant neoplasm of thyroid gland
CPT/HCPCS: 36415; 80053; 83036; 84443

== ENCOUNTER → 2020-02-23 | Outpatient (CLI) | payer OTHER, SELFPAY ==
[2019-06-22 08:22] VITALS: BMI 38.7
== END | disposition home or self-care (01) ==
LOC: LABSPEC 16:25
PROVIDERS: PCP Family Medicine; Referring Provider Family Medicine; Visit Provider Family Medicine
DX: Z20.828 Contact with and (suspected) exposure to other viral communicable diseases (principal)
CPT/HCPCS: 87635; U0003

== ENCOUNTER → 2020-04-05 09:41 | Outpatient (CLI) | payer OTHER, SELFPAY ==
[2019-06-22 08:22] VITALS: BMI 38.7
[2020-04-05 12:58] LABS: Hemoglobin A1c 7.1 % (3.8-5.6)
[2020-04-05 13:25] LABS: ALB/GLOB Ratio 0.9 RATIO (0.9-2.4); AST(SGOT) 42 U/L (15-37); Alanine Aminotransfer ALT/SGPT 83 U/L (13-56); Albumin, Serum 3.7 g/dL (3.2-5.0); Alkaline Phosphatase 93 U/L (45-117); Anion Gap 9 (5-15); BUN 16 mg/dL (7-18); Calcium,Total 9.5 mg/dL (8.5-10.1); Chloride 103 mmol/L (98-107); Cholesterol 222 mg/dL (200); Creatinine, Serum 0.84 mg/dL (0.55-1.02); EST Glomerular Filtration Rate 72 mL/min (>60); Est Glom Filt Rate - Afr Amer 88 mL/min (>60); Globulin 4.3 g/dL (2.2-4.2); Glucose 99 mg/dL (74-106); High Density Lipoprotein 52 mg/dL; Potassium 3.5 mmol/L (3.5-5.1); Sodium Level 139 mmol/L (136-145); Triglycerides 246 mg/dL; Very Low Density Lipoprotein 49 mg/dL (5-40)
== END ==
PROVIDERS: PCP Family Medicine; Referring Provider Internal Medicine Endocrinology, Diabetes & Metabolism; Visit Provider Internal Medicine Endocrinology, Diabetes & Metabolism
DX: E78.2 Mixed hyperlipidemia (principal); Z68.39 Body mass index [BMI] 39.0-39.9, adult; E11.65 Type 2 diabetes mellitus with hyperglycemia
CPT/HCPCS: 36415; 80053; 80061; 83036

== ENCOUNTER → 2020-05-13 10:51 | Outpatient (CLI) | payer OTHER, SELFPAY ==
[2019-06-22 08:22] VITALS: BMI 38.7
[2020-05-13 12:19] LABS: Absolute Lymphocyte Count 3.42 X10^3/uL (0.83-4.51); Absolute Neutrophil Count 4.6 X10^3/uL (2.0-7.7); Basophil# 0.02 X10^3/uL; Basophil% 0.2 % (0-1); Eosinophil# 0.12 X10^3/uL; Eosinophils% 1.3 % (0-5); Hematocrit 49.5 % (37-47); Hemoglobin 15.8 g/dL (12.0-15.0); Lymphocyte # 3.42 X10^3/ul (4.0); Lymphocyte % 38.3 % (19-41); Mean Corp Hgb Conc 31.9 g/dL (32-36); Mean Corpuscular Hgb 27.6 pg (27.0-32.0); Mean Corpuscular Volume 86.4 fL (81-99); Mean Platelet Vol. 9.5 fl (6.2-12.0); Monocyte# 0.71 X10^3/uL; Monocyte% 7.9 % (0-10); NRBC Flagged by Analyzer 0 % (0-5); Neutrophil # 4.64 X10^3/uL (2.7-7.7); Platelet Count 361 K/mm3 (150-450); RBC Distribution Width SD 40.5 fl (35.1-43.9); Red Blood Count 5.73 M/mm3 (4.2-5.4); White Blood Count 8.9 K/mm3 (4.4-11.0)
[2020-05-13 12:26] LABS: ALB/GLOB Ratio 0.9 RATIO (0.9-2.4); AST(SGOT) 50 U/L (15-37); Alanine Aminotransfer ALT/SGPT 95 U/L (13-56); Albumin, Serum 3.7 g/dL (3.2-5.0); Alkaline Phosphatase 97 U/L (45-117); Anion Gap 7 (5-15); BUN 15 mg/dL (7-18); BUN/Creat Ratio 16.1 RATIO (10-20); CRP 9.69 mg/L (0.0-3.0); Calcium,Total 9.2 mg/dL (8.5-10.1); Chloride 102 mmol/L (98-107); Creatinine, Serum 0.93 mg/dL (0.55-1.02); EST Glomerular Filtration Rate 64 mL/min (>60); Est Glom Filt Rate - Afr Amer 78 mL/min (>60); Globulin 4.2 g/dL (2.2-4.2); Glucose 124 mg/dL (74-106); Magnesium 2.3 mg/dL (1.6-2.6); Potassium 3.8 mmol/L (3.5-5.1); Protein, Total 7.9 g/dL (6.4-8.2); Sodium Level 138 mmol/L (136-145)
== END ==
PROVIDERS: PCP Family Medicine; Visit Provider Family Medicine
DX: R42 Dizziness and giddiness (principal)
CPT/HCPCS: 36415; 80053; 83735; 85025; 86140

== ENCOUNTER → 2020-05-28 | Outpatient (CLI) | payer OTHER, SELFPAY ==
[2019-06-22 08:22] VITALS: BMI 38.7
== END | disposition home or self-care (01) ==
LOC: LABSPEC 14:21
PROVIDERS: PCP Family Medicine; Referring Provider Family Medicine; Visit Provider Family Medicine
DX: R09.89 Other specified symptoms and signs involving the circulatory and respiratory systems (principal)
CPT/HCPCS: 87635; U0005; U0003

== ENCOUNTER 2020-06-02 10:45 | Emergency (ER) | payer OTHER, SELFPAY ==
[2019-06-22 08:22] VITALS: BMI 38.7
[2020-06-02 10:46] VITALS: BP 167/91; PULSE 94; RESP 16; TEMP 36.1; O2SAT 98; BMI 33.5
--- NOTE | 2020-06-02 11:04 | CT_ITS ---
STUDY: CT BRAIN WITHOUT CONTRAST REASON FOR EXAM: Female, 64 years old. HEADACHE AND DIZZINESS X 1 MONTH BUT WORSE TODAY, UNABLE TO WALK RADIATION DOSAGE (If Supplied By Facility): CTDIvol = ( 44.99 ) mGy, DLP = ( 779.24 ) mGycm TECHNIQUE: Transaxial CT imaging of the brain was performed without administration of intravenous contrast material. Individualized dose optimization techniques were used for this CT. COMPARISON: 09/14/2017 FINDINGS: Normal soft tissue structures. Normal calvarium. Normal size ventricles and extra-axial spaces for the patient''s age. Normal white matter tracts of the cerebral hemispheres. Normal basal ganglia and thalami. Normal brainstem. Normal cerebellum. There is no intracranial hemorrhage. There are no findings of an acute ischemic infarction. Normal visualized paranasal sinuses. CT/Brain/Head without Contrast IMPRESSION: Normal unenhanced CT scan of the brain. Electronically Signed: Martín Francois MD at 11:42 EST Tel , Service support ,
--- NOTE | 2020-06-02 11:04 | EKG12_ITS ---
Test Reason : DIZZINESS Blood Pressure : / mmHG Vent. Rate : 086 BPM Atrial Rate : 086 BPM P-R Int : 140 ms QRS Dur : 088 ms QT Int : 394 ms P-R-T Axes : 014 -11 011 degrees QTc Int : 471 ms Normal sinus rhythm Normal ECG Confirmed by CYNTHIA GOMEZ, LISA ([id number]), newspaper managing editor CARLOS ORDONEZ ([id number]) on 06/05/2020 6:53:07 AM Referred By: ABELARDO Confirmed By:LISA MARIE MD
--- NOTE | 2020-06-02 11:07 | ED.VISSUMM ---
- ER Visit Summary Date of Service: 06/02/20 Chief Complaint: Dizziness History of Present Illness: The patient is a 64 F who presents with dizziness that began today. Patient states she has been having some vertigo problems for the past month. Patient states she saw Dr. Stevenson who did some Alvina maneuvers which helped. Patient states that this morning she rolled over in bed and started feeling lightheaded. Patient states she got up to go to the bathroom and was having difficulty walking. Patient states she feels like she was going to pass out. Patient admits to an episode of nausea and vomiting. Patient also admits to a headache. Patient does admit to some mild tinnitus but denies any hearing changes or ear pain. Physical Examination: Vital signs are stable. Patient is afebrile. Patient is in no acute distress. Oral mucosa is pink and moist. Neck is supple. Trachea is midline. There is no JVD noted. Heart was regular rate and rhythm. Lungs are clear and equal bilaterally. Abdomen is soft. Bowel sounds are normal. There is no tenderness. There is no rebound or guarding noted. Skin is warm dry. Cranial nerves II through XII are intact. There are no focal motor or sensory deficits noted. Extremities are intact. There is no calf tenderness or edema. Test Results: EKG was obtained. On my interpretation, there is normal sinus rhythm with a rate of 86. There are no acute ST or T wave changes noted. CT scan of the brain was obtained. There is no acute intracranial abnormality. This was interpreted by the radiologist and reviewed by myself. CBC and comprehensive metabolic profile were obtained and were essentially within normal limits. Emergency Department Course and Treatment: Patient was given IV fluids here. Orthostatic vital signs were obtained and were within normal limits. Patient did get somewhat dizzy with standing. Patient was given a dose of meclizine. Patient is feeling better. Patient was able to ambulate without difficulty in the emergency department. Patient was given a prescription for meclizine. Patient was instructed to follow-up with her primary care physician in 5 to 7 days. Patient understood and was agreeable with the plan. All questions were answered. Disposition: Discharge home Impression: 1. Vertigo This note was generated with Player[employer]ation software. It may contain incorrect words, spelling, and punctuation that were not noted in review of the chart prior to signing ED Disposition - Plan for ED Patient: Disposition: Home or Assisted Living Diagnosis: Vertigo Instructions: ED Vertigo, Unspecified Prescriptions: Meclizine HCl 25 mg PO Q8H PRN PRN #20 tab PRN Reason: Dizziness Transmission Status: Pending to [id number] Referrals: Jerald Rao MD [Primary Care Provider] - 5-7 Days
[2020-06-02 11:12] LABS: Absolute Lymphocyte Count 4.61 X10^3/uL (0.83-4.51); Absolute Neutrophil Count 5.1 X10^3/uL (2.0-7.7); Basophil# 0.06 X10^3/uL; Basophil% 0.6 % (0-1); Eosinophil# 0.24 X10^3/uL; Eosinophils% 2.2 % (0-5); Hematocrit 50.3 % (37-47); Hemoglobin 16.3 g/dL (12.0-15.0); Lymphocyte # 4.61 X10^3/ul (4.0); Lymphocyte % 42.8 % (19-41); Mean Corp Hgb Conc 32.4 g/dL (32-36); Mean Corpuscular Hgb 27.9 pg (27.0-32.0); Mean Platelet Vol. 9.2 fl (6.2-12.0); Monocyte# 0.79 X10^3/uL; Monocyte% 7.3 % (0-10); NRBC Flagged by Analyzer 0 % (0-5); Neutrophil # 5.05 X10^3/uL (2.7-7.7); Neutrophil % 46.9 % (47-70); Platelet Count 335 K/mm3 (150-450); RBC Distribution Width CV 13.1 % (11.6-14.6); RBC Distribution Width SD 40.4 fl (35.1-43.9); Red Blood Count 5.85 M/mm3 (4.2-5.4); White Blood Count 10.8 K/mm3 (4.4-11.0)
[2020-06-02 11:33] LABS: ALB/GLOB Ratio 0.8 RATIO (0.9-2.4); AST(SGOT) 41 U/L (15-37); Alanine Aminotransfer ALT/SGPT 77 U/L (13-56); Albumin, Serum 3.8 g/dL (3.2-5.0); Alkaline Phosphatase 103 U/L (45-117); Anion Gap 8 (5-15); BUN 12 mg/dL (7-18); BUN/Creat Ratio 11.7 RATIO (10-20); Calcium,Total 9.7 mg/dL (8.5-10.1); Chloride 106 mmol/L (98-107); Creatinine, Serum 1.03 mg/dL (0.55-1.02); EST Glomerular Filtration Rate 57 mL/min (>60); Est Glom Filt Rate - Afr Amer 69 mL/min (>60); Estimated Creatinine Clearance 55.66 ml/min; Globulin 4.5 g/dL (2.2-4.2); Glucose 202 mg/dL (74-106); Potassium 4.1 mmol/L (3.5-5.1); Protein, Total 8.3 g/dL (6.4-8.2); Sodium Level 139 mmol/L (136-145)
[2020-06-02 11:38] VITALS: BP 171/69; BP 180/88; BP 184/72; PULSE 93; PULSE 95; PULSE 97
[2020-06-02 12:30] LABS: Bacteria 0 SEEN /hpf (None Seen); Mucous, Urine 0 SEEN /hpf (<or=2+); Red Blood Cells-Urine 0 SEEN /hpf (0-5); White Blood Cells 0 SEEN /hpf (0-5)
[2020-06-02 12:35] LABS: Color, Urine Yellow (Yellow); Glucose, Dipstick 1000 mg/dl (Normal); Ketone-Dipstick Negative (Negative); Leukocyte Esterase-Dipstick Negative /ul (Negative); Nitrite-Dipstick Negative (Negative); Occult Blood-Urine 25 /ul (Negative); Protein-Dipstick Negative (Negative); Urine Bilirubin Dipstick Negative (Negative); Urine Clarity Clear (Clear); Urine Urobilinogen Normal (Normal)
[2020-06-02 12:41] LABS: Squamous Epithelial Cells - UA 0-5 SEEN /hpf (5-10)
[2020-06-02 12:48] VITALS: BP 155/63; PULSE 90; RESP 21; O2SAT 96
[2020-06-02] MEDS: 0.9% Normal Saline 1,000 ML 1000 ML IV (12:49)
[2020-06-02] MEDS: Meclizine HCl 25 MG Tablet PO (13:07)
[2020-06-02 14:25] VITALS: RESP 16
== END 2020-06-02 14:26 | disposition home or self-care (01) ==
PROVIDERS: Emergency Provider Emergency Medicine; PCP Family Medicine
DX: R42 Dizziness and giddiness (principal); E66.9 Obesity, unspecified; I10 Essential (primary) hypertension; E11.9 Type 2 diabetes mellitus without complications; M06.9 Rheumatoid arthritis, unspecified; Z87.442 Personal history of urinary calculi; Z85.850 Personal history of malignant neoplasm of thyroid; Z79.4 Long term (current) use of insulin; Z79.899 Other long term (current) drug therapy
CPT/HCPCS: 70450; 80053; 81001; 85025; 87426; 93005; 99285; J7030; A4216

== ENCOUNTER 2020-11-18 14:38 | Emergency (ER) | payer OTHER, SELFPAY ==
[2020-11-18 14:39] VITALS: BP 170/92; PULSE 107; RESP 18; TEMP 37; O2SAT 95; BMI 37.9
--- NOTE | 2020-11-18 15:00 | EKG12_ITS ---
Test Reason : Blood Pressure : / mmHG Vent. Rate : 099 BPM Atrial Rate : 099 BPM P-R Int : 160 ms QRS Dur : 084 ms QT Int : 362 ms P-R-T Axes : 042 -26 035 degrees QTc Int : 464 ms Normal sinus rhythm Poor R- wave progression Abnormal ECG Confirmed by ANIA GOMEZ, XUAN ([id number]), communications editor MAGGIE BOSWELL ([id number]) on 11/20/2020 1:55:14 PM Referred By: TYLER Confirmed By:XUAN JORGE MD
--- NOTE | 2020-11-18 15:02 | EDS_ITS ---
HPI History of Present Illness Chief Complaint: Hyperglycemia Narrative Narrative: 64-year-old female with history of diabetes presenting for elevated blood sugars. She states she has been seeing her primary doctor and an family law mediator. She states that she has not been feeling that well feels like she may be a little bit dyspneic. She has not had a fever. Patient also complaining of abdominal pain in the right upper quadrant. She denies diarrhea or constipation. Patient took some quick acting insulin prior to leaving her house and noted her blood sugar was in the 400s. 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 Rheumatoid arthritis Home Medications Cholecalciferol (Vitamin D3) [Vitamin D3] 10,000 unit PO DAILY 06/02/20 [History Last Taken Unknown] Milk Thistle 1 cap PO DAILY 06/02/20 [History Last Taken Unknown] adalimumab 40 mg SC QWEEK 06/02/20 [History Last Taken Unknown] empagliflozin-metformin 1 ea PO DAILY 06/02/20 [History Last Taken Unknown] indapamide 2.5 mg PO DAILY 06/02/20 [History Last Taken Unknown] insulin glargine U-300 conc 90 unit SQ DINNER 06/02/20 [History Last Taken Unknown] levothyroxine 150 mcg PO DAILY 06/02/20 [History Last Taken Unknown] magnesium glycinate 400 mg PO BID 06/02/20 [History Last Taken Unknown] meclizine 25 mg PO Q8H PRN PRN #20 tab 06/02/20 [Rx Last Taken Unknown] melatonin-pyridoxine HCl (B6) 1 ea PO QHS 06/02/20 [History Last Taken Unknown] potassium citrate 20 meq PO DAILY 06/02/20 [History Last Taken Unknown] quinapril 40 mg PO DAILY 06/02/20 [History Last Taken Unknown] insulin glargine U-300 conc [Toujeo SoloStar U-300 Insulin] 90 unit SUBCUT DINNER 11/18/20 [History Last Taken Unknown] semaglutide [Ozempic] 0.5 mg SUBCUT QWEEK 11/18/20 [History Last Taken Unknown] Allergy/AdvReac Type Severity Reaction Status Date / Time gabapentin AdvReac NEEDS Verified 11/18/20 14:43 FOLLOW-UP methotrexate AdvReac NEEDS Verified 11/18/20 14:43 FOLLOW-UP BP MEDS AdvReac Other Uncoded 11/18/20 14:43 Social History Smoking Status: Never smoker ROS ROS ED Constitutional Constitutional ED: Reports other Details: Generalized weakness ; Denies chills or fever(s) Eyes Eyes: Denies blurry vision or change in vision ENT ENT ED: Denies sore throat Cardiovascular Cardiovascular: Denies chest pain or palpitations Respiratory/Chest Respiratory/Chest: Reports dyspnea; Denies cough Gastrointestinal Gastrointestinal: Reports abdominal pain and nausea; Denies constipation, diarrhea, melena or vomiting Genitourinary Genitourinary ED: Denies dysuria or hematuria Musculoskeletal Musculoskeletal: Denies back pain or neck pain Integumentary Denies abscess or rash Neurologic Neurologic: Reports headache(s); Denies paresthesias Psychiatric Psychiatric: Denies anxiety or depression EXAM Physical Exam Const Vital Signs: 11/18/20 14:39 11/18/20 15:07 11/18/20 16:39 Temperature 98.6 F Temperature Source Temporal Pulse Rate 107 H Respiratory Rate 18 Respiratory Effort Normal Non-Labored Blood Pressure 170/92 H Blood Pressure Mean 118 Pulse Ox 95 94 Oxygen Delivery Method Room Air Room Air Positive well nourished General Appearance ED: NAD HEENT Reports moist mucous membranes Negative for trauma Eyes PERRL and EOMs intact bilaterally General Eye ED: Negative for pale conjunctiva or scleral icterus Neck no lymphadenopathy and supple Resp normal respiratory effort and clear to auscultation bilaterally Cardio regular rate and regular rhythm GI GI Narrative: Mild tenderness to palpation in the right upper quadrant. Abdomen nonperitoneal. Extremity normal to inspection Neuro oriented x3 and CN's II-XII intact bilaterally Sensorium / Orientation: alert Psych mental status grossly normal Skin no rashes or lesions noted and no wounds MDM MDM MDM Narrative Medical decision making narrative: Patient presenting with feeling of dyspnea and feeling generally unwell. She states she is having trouble keeping her blood sugar under control. She has been in touch with her primary care doctor and her family law mediator. Given her dyspnea I did check an EKG on arrival and on my interpretation it is sinus rhythm at 99 bpm without signs of ischemic change. Chest x-ray interpreted by myself shows no acute cardiopulmonary process. The radiologist does agree. Patient's blood work shows a leukocytosis of 12.4. Hemoglobin hematocrit are stable. Platelets normal. Patient's creatinine was slightly elevated over previously but she was given IV fluids. Electrolytes are within normal limits with exception of the sodium of 132. LFTs are normal. Urinalysis is negative for infection. Patient had CT of the abdomen pelvis with IV contrast due to complaint of abdominal pain which did not apply any acute abnormalities. The radiologist does mention fatty liver disease which patient already know she has. At this point I feel the patient is stable to be discharged home. She will follow up with her family law mediator and her primary care physician. She states she has fast acting insulin at home that she can use to bridge herself until she gets follow-up. Impression: 1. Hyperglycemia 2. Abdominal pain 3. Dyspnea Lab Data Labs: Laboratory Results - last 24 hr 11/18/20 11/18/20 11/18/20 13:13 13:13 13:13 WBC 12.4 H RBC 5.54 H Hgb 15.4 H Hct 46.8 MCV 84.5 MCH 27.8 MCHC 32.9 RDW Std Deviation 39.7 RDW Coeff of [place] 12.9 Plt Count 348 MPV 9.8 Immature Gran % (Auto) 0.200 Neut % (Auto) 57.3 Lymph % (Auto) 32.5 [place] % (Auto) 7.5 Eos % (Auto) 1.9 Baso % (Auto) 0.6 Absolute Neuts (auto) 7.1 Absolute Lymphs (auto) 4.04 Nucleated RBC % 0 Sodium 132 L Potassium 3.9 Chloride 96 L Carbon Dioxide 27.0 Anion Gap 9 BUN 19 H Creatinine 1.22 H Estim Creat Clear Calc 38.54 Est GFR (MDRD) Af Amer 57 L Est GFR (MDRD) Non-Af 47 L BUN/Creatinine Ratio 15.6 Glucose 428 H Calcium 10.0 Magnesium 2.2 Total Bilirubin 0.80 AST 51 H ALT 94 H Alkaline Phosphatase 97 Troponin I High Sens 6.6 Total Protein 7.9 Albumin 3.6 Globulin 4.3 H Albumin/Globulin Ratio 0.8 L Urine Color Urine Clarity Urine pH Ur Specific [place] Urine Protein Urine Glucose (UA) Urine Ketones Urine Occult Blood Urine Nitrite Urine Bilirubin Urine Urobilinogen Ur Leukocyte Esterase Urine RBC Urine WBC Ur Squamous Epith Cells Urine Bacteria Urine Mucus Acetone Level NEGATIVE POC Glucose 11/18/20 11/18/20 14:56 15:10 WBC RBC Hgb Hct MCV MCH MCHC RDW Std Deviation RDW Coeff of [place] Plt Count MPV Immature Gran % (Auto) Neut % (Auto) Lymph % (Auto) [place] % (Auto) Eos % (Auto) Baso % (Auto) Absolute Neuts (auto) Absolute Lymphs (auto) Nucleated RBC % Sodium Potassium Chloride Carbon Dioxide Anion Gap BUN Creatinine Estim Creat Clear Calc Est GFR (MDRD) Af Amer Est GFR (MDRD) Non-Af BUN/Creatinine Ratio Glucose Calcium Magnesium Total Bilirubin AST ALT Alkaline Phosphatase Troponin I High Sens Total Protein Albumin Globulin Albumin/Globulin Ratio Urine Color Straw Urine Clarity Clear Urine pH 6.5 Ur Specific [place] 1.010 Urine Protein Negative Urine Glucose (UA) 1000 H Urine Ketones Negative Urine Occult Blood 10 H Urine Nitrite Negative Urine Bilirubin Negative Urine Urobilinogen Normal Ur Leukocyte Esterase Negative Urine RBC 0 SEEN Urine WBC 0 SEEN Ur Squamous Epith Cells 0 SEEN Urine Bacteria 0 SEEN Urine Mucus 0 SEEN Acetone Level POC Glucose 452 H* Radiography Diagnostic Testing: Radiology Impression Abdomen/Pelvis CT 11/18/20 15:10 IMPRESSION: Hepatomegaly and fatty infiltrated liver status post cholecystectomy. Bilateral renal cysts and nonobstructing left renal calculi. No evidence for renal obstruction Electronically Signed: King Laureano MD at 16:50 EDT , Service support , Chest X-Ray 11/18/20 15:37 IMPRESSION: No acute cardiopulmonary pathology Electronically Signed: King Laureano MD at 16:14 EDT , Service support , Discharge Plan Triage Chief Complaint: Hyperglycemia ED Provider: Dustin Mascorro Dx/Rx/DC Orders Instructions: ED Abdominal Pain Unkn Cause Fem, ED Diabetic Hyperglycemia, ED Dyspnea Prescriptions: No Action indapamide 2.5 MG tablet 2.5 mg PO DAILY RF: 0 quinapril 40 MG tablet 40 mg PO DAILY RF: 0 potassium citrate 10 MEQ tablet extended release 20 meq PO DAILY RF: 0 levothyroxine 150 MCG tablet 150 mcg PO DAILY RF: 0 adalimumab 40 MG/0.8 ML syringe kit 40 mg SC QWEEK RF: 0 melatonin-pyridoxine HCl (B6) 1 EACH tablet 1 ea PO QHS RF: 0 magnesium glycinate 100 MG tablet 400 mg PO BID RF: 0 insulin glargine U-300 conc 300 UNIT/ML insulin pen 90 unit SQ DINNER RF: 0 empagliflozin-metformin 1 EACH tablet 1 ea PO DAILY RF: 0 Cholecalciferol (Vitamin D3) [Vitamin D3] 5,000 UNIT capsule 10,000 unit PO DAILY RF: 0 Milk Thistle 1 cap PO DAILY RF: 0 meclizine 25 MG tablet 25 mg PO Q8H PRN PRN (Reason: Dizziness) Qty: 20 RF: 0 Toujeo SoloStar U-300 Insulin 300 unit/mL (1.5 mL) insulin pen 90 unit SUBCUT DINNER RF: 0 Ozempic 0.25 mg or 0.5 mg(2 mg/1.5 mL) pen injector 0.5 mg SUBCUT QWEEK RF: 0 Primary Care Provider: Jerald Rao Referrals: Jerald Rao MD [Primary Care Provider] - Disposition Disposition: Home, Self Care
[2020-11-18 15:05] LABS: Bedside Glucose 452 mg/dL (70-110)
--- NOTE | 2020-11-18 15:10 | CT_ITS ---
STUDY: CT ABDOMEN AND PELVIS WITH CONTRAST REASON FOR EXAM: Female, 64 years old. Abdominal pain RADIATION DOSAGE (If Supplied By Facility): CTDIvol = ( 16.25 ) mGy, DLP = ( 1150.63 ) mGycm TECHNIQUE: Transaxial images were obtained from the dome of the diaphragm to the symphysis pubis without oral contrast. IV 100mL Isovue-370 was administered. Sagittal and coronal images were reconstructed. Individualized dose optimization techniques were used for this CT. COMPARISON: 02/03/2018 FINDINGS: The visualized lung bases are unremarkable. The visualized portions of the heart are within normal limits. Liver is mildly enlarged and fatty infiltrated.. Gallbladder not visualized consistent with cholecystectomy. Normal spleen. Normal pancreas. Normal bilateral adrenal glands. Small right renal cyst. No evidence for obstruction.. 2 nonobstructing left renal calculi and small parapelvic cyst Normal visualized stomach. Normal small intestine. Diffuse fecal retention noted throughout the colon.. The appendix is visualized and appears normal. Normal abdominal aorta. Normal inferior vena cava. Normal retroperitoneum. Normal urinary bladder. Normal abdominal wall. Lumbar spine demonstrates degenerative changes CT/Abdomen/Pelvis W IV Cont ONLY IMPRESSION: Hepatomegaly and fatty infiltrated liver status post cholecystectomy. Bilateral renal cysts and nonobstructing left renal calculi. No evidence for renal obstruction Electronically Signed: King Laureano MD at 16:50 EDT , Service support ,
[2020-11-18 15:18] LABS: Bacteria 0 SEEN /hpf (None Seen); Mucous, Urine 0 SEEN /hpf (<or=2+); Red Blood Cells-Urine 0 SEEN /hpf (0-5); Squamous Epithelial Cells - UA 0 SEEN /hpf (5-10); White Blood Cells 0 SEEN /hpf (0-5)
[2020-11-18 15:20] LABS: Color, Urine Straw (Yellow); Glucose, Dipstick 1000 mg/dl (Normal); Ketone-Dipstick Negative (Negative); Leukocyte Esterase-Dipstick Negative /ul (Negative); Nitrite-Dipstick Negative (Negative); Occult Blood-Urine 10 /ul (Negative); Protein-Dipstick Negative (Negative); Urine Bilirubin Dipstick Negative (Negative); Urine Clarity Clear (Clear); Urine Urobilinogen Normal (Normal); Urine pH 6.5 (5.0 - 8.0)
[2020-11-18 15:32] LABS: Absolute Lymphocyte Count 4.04 X10^3/uL (0.83-4.51); Absolute Neutrophil Count 7.1 X10^3/uL (2.0-7.7); Basophil# 0.07 X10^3/uL; Basophil% 0.6 % (0-1); Eosinophil# 0.23 X10^3/uL; Eosinophils% 1.9 % (0-5); Hematocrit 46.8 % (37-47); Hemoglobin 15.4 g/dL (12.0-15.0); Lymphocyte # 4.04 X10^3/ul (0.83-4.51); Lymphocyte % 32.5 % (19-41); Mean Corp Hgb Conc 32.9 g/dL (32-36); Mean Corpuscular Hgb 27.8 pg (27.0-32.0); Mean Corpuscular Volume 84.5 fL (81-99); Mean Platelet Vol. 9.8 fl (6.2-12.0); Monocyte# 0.93 X10^3/uL; Monocyte% 7.5 % (0-10); NRBC Flagged by Analyzer 0 % (0-5); Neutrophil # 7.13 X10^3/uL (2.7-7.7); Neutrophil % 57.3 % (47-70); Platelet Count 348 K/mm3 (150-450); RBC Distribution Width CV 12.9 % (11.6-14.6); RBC Distribution Width SD 39.7 fl (35.1-43.9); Red Blood Count 5.54 M/mm3 (4.2-5.4); White Blood Count 12.4 K/mm3 (4.4-11.0)
--- NOTE | 2020-11-18 15:37 | RAD_ITS ---
STUDY: X-RAY CHEST REASON FOR EXAM: Female, 64 years old. dyspnea TECHNIQUE: AP portable COMPARISON: 03/23/2018. FINDINGS: The lungs are clear and expanded. There is no demonstrated pleural abnormality. Normal size heart. Normal mediastinum and chelo. Normal visualized pulmonary arteries. Normal visualized aortic arch and descending thoracic aorta. Dorsal spine demonstrates degenerative change.. Normal visualized ribs, clavicles, and shoulders. There is no demonstrated abnormality of the visualized soft tissue structures of the upper abdomen. No significant change since prior exam RAD/Chest 1 View (Portable) IMPRESSION: No acute cardiopulmonary pathology Electronically Signed: King Laureano MD at 16:14 EDT , Service support ,
[2020-11-18 15:45] LABS: ALB/GLOB Ratio 0.8 RATIO (0.9-2.4); AST(SGOT) 51 U/L (15-37); Alanine Aminotransfer ALT/SGPT 94 U/L (13-56); Albumin, Serum 3.6 g/dL (3.2-5.0); Alkaline Phosphatase 97 U/L (45-117); Anion Gap 9 (5-15); BUN 19 mg/dL (7-18); BUN/Creat Ratio 15.6 RATIO (10-20); Chloride 96 mmol/L (98-107); Creatinine, Serum 1.22 mg/dL (0.55-1.02); EST Glomerular Filtration Rate 47 mL/min (>60); Est Glom Filt Rate - Afr Amer 57 mL/min (>60); Estimated Creatinine Clearance 38.54 ml/min; Globulin 4.3 g/dL (2.2-4.2); Glucose 428 mg/dL (74-106); Magnesium 2.2 mg/dL (1.6-2.6); Potassium 3.9 mmol/L (3.5-5.1); Protein, Total 7.9 g/dL (6.4-8.2); Sodium Level 132 mmol/L (136-145); Troponin-I HS 6.6 pg/mL (3.0-53.7)
[2020-11-18 16:39] VITALS: O2SAT 94
== END 2020-11-18 17:09 | disposition home or self-care (01) ==
PROVIDERS: Emergency Provider Student in an Organized Health Care Education/Training Program; PCP Family Medicine
DX: E11.65 Type 2 diabetes mellitus with hyperglycemia (principal); R10.9 Unspecified abdominal pain; R06.00 Dyspnea, unspecified; K76.0 Fatty (change of) liver, not elsewhere classified; M06.9 Rheumatoid arthritis, unspecified; Z85.850 Personal history of malignant neoplasm of thyroid; Z79.4 Long term (current) use of insulin; Z79.899 Other long term (current) drug therapy
CPT/HCPCS: 71045; 74177; 80053; 81001; 82009; 82962; 83735; 84484; 85025; 93005; 99282; Q9967

== ENCOUNTER → 2021-04-07 17:00 | Outpatient (CLI) | payer MEDICARE, SELFPAY | PROVIDERS: PCP Family Medicine; Visit Provider Family Medicine | DX: J06.9 Acute upper respiratory infection, unspecified (principal); Z20.822 Contact with and (suspected) exposure to COVID-19 | CPT/HCPCS: 87633; 87635; U0005; U0003 ==

== ENCOUNTER → 2021-05-01 09:59 | Outpatient (CLI) | payer MEDICARE, BC, SELFPAY ==
[2021-05-01 12:37] LABS: ALB/GLOB Ratio 0.8 RATIO (0.9-2.4); AST(SGOT) 42 U/L (15-37); Alanine Aminotransfer ALT/SGPT 82 U/L (13-56); Albumin, Serum 3.4 g/dL (3.2-5.0); Alkaline Phosphatase 86 U/L (45-117); Anion Gap 8 (5-15); BUN 17 mg/dL (7-18); Calcium,Total 10.1 mg/dL (8.5-10.1); Chloride 106 mmol/L (98-107); Creatinine, Serum 0.85 mg/dL (0.55-1.02); EST Glomerular Filtration Rate 71 mL/min (>60); Est Glom Filt Rate - Afr Amer 86 mL/min (>60); Globulin 4.3 g/dL (2.2-4.2); Glucose 125 mg/dL (74-106); Potassium 3.6 mmol/L (3.5-5.1); Protein, Total 7.7 g/dL (6.4-8.2); Sodium Level 141 mmol/L (136-145); Thyroid Stim Hormone (TSH) 0.32 uIU/mL (0.358-3.74)
[2021-05-01 12:39] LABS: Hemoglobin A1c 8.4 % (3.8-5.6)
== END ==
PROVIDERS: PCP Family Medicine; Referring Provider Internal Medicine Endocrinology, Diabetes & Metabolism; Visit Provider Internal Medicine Endocrinology, Diabetes & Metabolism
DX: E89.0 Postprocedural hypothyroidism (principal); E11.65 Type 2 diabetes mellitus with hyperglycemia
CPT/HCPCS: 36415; 80053; 83036; 84443

== ENCOUNTER → 2021-09-24 | Outpatient (CLI) | payer MEDICARE, BC, SELFPAY ==
[2021-09-24 18:11] LABS: ALB/GLOB Ratio 0.8 RATIO (0.9-2.4); AST(SGOT) 27 U/L (15-37); Alanine Aminotransfer ALT/SGPT 47 U/L (13-56); Albumin, Serum 3.5 g/dL (3.2-5.0); Alkaline Phosphatase 77 U/L (45-117); Anion Gap 9 (5-15); BUN 20 mg/dL (7-18); BUN/Creat Ratio 22.7 RATIO (10-20); Calcium,Total 9.8 mg/dL (8.5-10.1); Chloride 106 mmol/L (98-107); Creatinine, Serum 0.88 mg/dL (0.55-1.02); EST Glomerular Filtration Rate 68 mL/min (>60); Est Glom Filt Rate - Afr Amer 83 mL/min (>60); Globulin 4.2 g/dL (2.2-4.2); Glucose 162 mg/dL (74-106); Potassium 3.7 mmol/L (3.5-5.1); Protein, Total 7.7 g/dL (6.4-8.2); Sodium Level 138 mmol/L (136-145)
== END | disposition home or self-care (01) ==
PROVIDERS: PCP Family Medicine; Referring Provider Internal Medicine Endocrinology, Diabetes & Metabolism; Visit Provider Internal Medicine Endocrinology, Diabetes & Metabolism
DX: E11.65 Type 2 diabetes mellitus with hyperglycemia (principal)
CPT/HCPCS: 36415; 80053

== ENCOUNTER → 2021-10-23 | Outpatient (CLI) | payer MEDICARE, BC, SELFPAY ==
[2021-10-23 12:43] LABS: ALB/GLOB Ratio 0.8 RATIO (0.9-2.4); AST(SGOT) 26 U/L (15-37); Alanine Aminotransfer ALT/SGPT 46 U/L (13-56); Albumin, Serum 3.5 g/dL (3.2-5.0); Alkaline Phosphatase 76 U/L (45-117); Anion Gap 7 (5-15); BUN 17 mg/dL (7-18); BUN/Creat Ratio 21.4 RATIO (10-20); Calcium,Total 9.6 mg/dL (8.5-10.1); Chloride 106 mmol/L (98-107); Cholesterol 225 mg/dL (200); EST Glomerular Filtration Rate 77 mL/min (>60); Est Glom Filt Rate - Afr Amer 93 mL/min (>60); Globulin 4.2 g/dL (2.2-4.2); Glucose 93 mg/dL (74-106); High Density Lipoprotein 55 mg/dL; Potassium 3.8 mmol/L (3.5-5.1); Protein, Total 7.7 g/dL (6.4-8.2); Sodium Level 139 mmol/L (136-145); Triglycerides 176 mg/dL; Very Low Density Lipoprotein 35 mg/dL (5-40)
== END | disposition home or self-care (01) ==
LOC: MTLAB 10:29
PROVIDERS: PCP Family Medicine; Referring Provider Internal Medicine Endocrinology, Diabetes & Metabolism; Visit Provider Internal Medicine Endocrinology, Diabetes & Metabolism
DX: E78.2 Mixed hyperlipidemia (principal)
CPT/HCPCS: 36415; 80053; 80061

== ENCOUNTER → 2022-07-14 | Outpatient (CLI) | payer MEDICARE, BC, SELFPAY ==
--- NOTE | 2022-07-14 09:53 | BI_ITS ---
MAMMOGRAPHY - BILATERAL SCREENING REASON FOR EXAM: Female, 66 years old. Routine annual screening examination. PERTINENT HISTORY: Non-contributory. TECHNIQUE: Digital bilateral breast hardik (3D mammographic acquisition) in the CC and MLO projections. 2-D mediolateral oblique (MLO) and craniocaudad (CC) views of both breasts were obtained. CAD: Full Field Digital Mammography with Computer Added Detection was performed. COMPARISON: Comparison is made with prior study dated 10/28/2015 and 07/28/2010. FINDINGS: Breast Composition: The breasts are almost entirely fatty. There are no dominant masses or suspicious calcifications. No other significant abnormalities are identified. There has been no significant change since the prior study. BI/SCRN MAMM (CAD)W/HARDIK BILAT IMPRESSION: Stable bilateral screening mammogram. Yearly follow-up mammogram recommended. (A) ASSESSMENT CATEGORY: BIRADS Category 1: Negative. A letter regarding these results will be sent to the patient by the facility within 30 days. Approximately 10% of breast cancers are not detected by mammography. A normal mammogram should not delay biopsy of a clinically suspicious abnormality. [id number] Electronically Signed: Blair Valencia MD at 11:01 EST ,
== END | disposition home or self-care (01) ==
LOC: OPBI 09:51
PROVIDERS: PCP Family Medicine; Referring Provider Family Medicine; Visit Provider Family Medicine
DX: Z12.31 Encounter for screening mammogram for malignant neoplasm of breast (principal)
CPT/HCPCS: 77063; 77067

== ENCOUNTER → 2023-02-10 | Outpatient (CLI) | payer MEDICARE, BC, SELFPAY ==
[2023-02-10 17:44] LABS: Absolute Lymphocyte Count 4.23 X10^3/uL (0.83-4.51); Absolute Neutrophil Count 5.5 X10^3/uL (2.0-7.7); Basophil# 0.06 X10^3/uL; Basophil% 0.6 % (0-1); Eosinophil# 0.24 X10^3/uL; Eosinophils% 2.2 % (0-5); Hematocrit 46.5 % (37-47); Hemoglobin 14.8 g/dL (12.0-15.0); Lymphocyte # 4.23 X10^3/ul (0.83-4.51); Lymphocyte % 38.9 % (19-41); Mean Corp Hgb Conc 31.8 g/dL (32-36); Mean Corpuscular Hgb 28.7 pg (27.0-32.0); Mean Corpuscular Volume 90.3 fL (81-99); Monocyte# 0.84 X10^3/uL; Monocyte% 7.7 % (0-10); NRBC Flagged by Analyzer 0 % (0-5); Neutrophil # 5.48 X10^3/uL (2.7-7.7); Neutrophil % 50.4 % (47-70); Platelet Count 333 K/mm3 (150-450); RBC Distribution Width SD 42.8 fl (35.1-43.9); Red Blood Count 5.15 M/mm3 (4.2-5.4); White Blood Count 10.9 K/mm3 (4.4-11.0)
[2023-02-10 18:00] LABS: Erythrocyte Sedimentation Rate 26 mm/hr (0-30)
[2023-02-10 19:00] LABS: ALB/GLOB Ratio 0.9 RATIO (0.9-2.4); AST(SGOT) 25 U/L (15-37); Alanine Aminotransfer ALT/SGPT 47 U/L (13-56); Albumin, Serum 3.7 g/dL (3.2-5.0); Alkaline Phosphatase 77 U/L (45-117); Anion Gap 8 (5-15); BUN 18 mg/dL (7-18); CRP 5.98 mg/L (0.0-3.0); Calcium,Total 9.6 mg/dL (8.5-10.1); Chloride 102 mmol/L (98-107); Creatinine, Serum 1.29 mg/dL (0.55-1.02); EST Glomerular Filtration Rate 44 mL/min (>60); Est Glom Filt Rate - Afr Amer 53 mL/min (>60); Glucose 145 mg/dL (74-106); Potassium 3.6 mmol/L (3.5-5.1); Protein, Total 7.7 g/dL (6.4-8.2); Sodium Level 136 mmol/L (136-145)
[2023-02-11 08:15] LABS: PTHIN 30.1 pg/mL (18.4-80.1)
== END | disposition home or self-care (01) ==
PROVIDERS: PCP Family Medicine; Referring Provider Internal Medicine Endocrinology, Diabetes & Metabolism; Visit Provider Internal Medicine Endocrinology, Diabetes & Metabolism
DX: E11.65 Type 2 diabetes mellitus with hyperglycemia (principal); E21.5 Disorder of parathyroid gland, unspecified
CPT/HCPCS: 36415; 80053; 83970; 85025; 85652; 86140

== ENCOUNTER → 2023-05-06 | Outpatient (CLI) | payer MEDICARE, BC, SELFPAY ==
[2023-05-06 10:46] LABS: ALB/GLOB Ratio 0.9 RATIO (0.9-2.4); AST(SGOT) 31 U/L (15-37); Alanine Aminotransfer ALT/SGPT 57 U/L (13-56); Albumin, Serum 3.7 g/dL (3.2-5.0); Alkaline Phosphatase 77 U/L (45-117); Anion Gap 8 (5-15); BUN 18 mg/dL (7-18); BUN/Creat Ratio 22.2 RATIO (10-20); Calcium,Total 10.1 mg/dL (8.5-10.1); Chloride 101 mmol/L (98-107); Creatinine, Serum 0.81 mg/dL (0.55-1.02); EST Glomerular Filtration Rate 75 mL/min (>60); Est Glom Filt Rate - Afr Amer 90 mL/min (>60); Globulin 4.1 g/dL (2.2-4.2); Glucose 172 mg/dL (74-106); Potassium 3.8 mmol/L (3.5-5.1); Protein, Total 7.8 g/dL (6.4-8.2); Sodium Level 136 mmol/L (136-145)
[2023-05-06 10:47] LABS: Hemoglobin A1c 7.7 % (3.8-5.6)
== END | disposition home or self-care (01) ==
LOC: MTLAB 07:51
PROVIDERS: PCP Family Medicine; Referring Provider Internal Medicine Endocrinology, Diabetes & Metabolism; Visit Provider Internal Medicine Endocrinology, Diabetes & Metabolism
DX: E11.65 Type 2 diabetes mellitus with hyperglycemia (principal)
CPT/HCPCS: 36415; 80053; 83036

== ENCOUNTER → 2023-11-30 | Outpatient (CLI) | payer MEDICARE, BC, SELFPAY ==
[2023-11-30 10:31] LABS: ALB/GLOB Ratio 0.9 RATIO (0.9-2.4); AST(SGOT) 20 U/L (15-37); Alanine Aminotransfer ALT/SGPT 29 U/L (13-56); Albumin, Serum 3.5 g/dL (3.2-5.0); Alkaline Phosphatase 68 U/L (45-117); Anion Gap 7 (5-15); BUN 19 mg/dL (7-18); BUN/Creat Ratio 24.6 RATIO (10-20); Calcium,Total 9.6 mg/dL (8.5-10.1); Chloride 103 mmol/L (98-107); Creatinine, Serum 0.77 mg/dL (0.55-1.02); EST Glomerular Filtration Rate 79 mL/min (>60); Est Glom Filt Rate - Afr Amer 96 mL/min (>60); Globulin 4.1 g/dL (2.2-4.2); Glucose 101 mg/dL (74-106); Potassium 3.3 mmol/L (3.5-5.1); Protein, Total 7.6 g/dL (6.4-8.2); Sodium Level 137 mmol/L (136-145)
[2023-11-30 13:07] LABS: Thyroid Stim Hormone (TSH) 0.18 uIU/mL (0.358-3.74)
== END | disposition home or self-care (01) ==
LOC: MTLAB 08:21
PROVIDERS: PCP Family Medicine; Referring Provider Physician Assistant Medical; Visit Provider Physician Assistant Medical
DX: C73 Malignant neoplasm of thyroid gland (principal); E11.65 Type 2 diabetes mellitus with hyperglycemia; E83.42 Hypomagnesemia
CPT/HCPCS: 36415; 80053; 83036; 83735; 84443

== ENCOUNTER → 2024-04-19 | Outpatient (CLI) | payer MEDICARE, BC, SELFPAY ==
[2024-04-19 16:12] LABS: Thyroid Stim Hormone (TSH) 0.279 uIU/mL (0.358-3.740)
== END | disposition home or self-care (01) ==
LOC: MTLAB 13:56
PROVIDERS: PCP Family Medicine; Referring Provider Physician Assistant Medical; Visit Provider Physician Assistant Medical
DX: E89.0 Postprocedural hypothyroidism (principal)
CPT/HCPCS: 36415; 84443

== ENCOUNTER → 2024-05-30 | Outpatient (CLI) | payer MEDICARE, BC, SELFPAY ==
[2024-05-30 13:04] LABS: AST(SGOT) 14 U/L (15-37); Alanine Aminotransfer ALT/SGPT 18 U/L (13-56); Albumin, Serum 3.7 g/dL (3.2-5.0); Alkaline Phosphatase 54 U/L (45-117); Anion Gap 6 (5-15); BUN 14 mg/dL (7-18); BUN/Creat Ratio 18.2 RATIO (10-20); Calcium,Total 9.8 mg/dL (8.5-10.1); Chloride 102 mmol/L (98-107); Cholesterol 174 mg/dL (200); Creatinine, Serum 0.77 mg/dL (0.55-1.02); EST Glomerular Filtration Rate 79 mL/min (>60); Est Glom Filt Rate - Afr Amer 96 mL/min (>60); Globulin 3.8 g/dL (2.2-4.2); Glucose 101 mg/dL (74-106); High Density Lipoprotein 59 mg/dL; Potassium 3.7 mmol/L (3.5-5.1); Protein, Total 7.5 g/dL (6.4-8.2); Sodium Level 137 mmol/L (136-145); Thyroid Stim Hormone (TSH) 0.714 uIU/mL (0.358-3.740); Triglycerides 142 mg/dL; Very Low Density Lipoprotein 28 mg/dL (5-40); Vitamin D,25 Hydroxy 125.5 ng/mL
[2024-05-30 13:30] LABS: Hemoglobin A1c 5.3 % (3.8-5.6)
[2024-05-30 13:42] LABS: Microalbumin,Random Urine 8.2 mg/L (NO RANGE EST.); Microalbumin:Creatinine Ratio 10.5 mg/g CRE (<30 mg/g CRE)
== END | disposition home or self-care (01) ==
PROVIDERS: PCP Family Medicine; Referring Provider Physician Assistant Medical; Visit Provider Physician Assistant Medical
DX: E11.21 Type 2 diabetes mellitus with diabetic nephropathy (principal); E78.2 Mixed hyperlipidemia; E89.0 Postprocedural hypothyroidism; E55.9 Vitamin D deficiency, unspecified
CPT/HCPCS: 36415; 80053; 80061; 82043; 82306; 82570; 83036; 84443

== ENCOUNTER 2025-01-09 09:59 | Emergency (ER) | payer MEDICARE, BC, SELFPAY ==
[2025-01-09 10:00] VITALS: BP 170/78; PULSE 70; RESP 16; TEMP 36.6; O2SAT 100
--- NOTE | 2025-01-09 10:36 | EX.ED.DYSGE1 ---
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 Rheumatoid arthritis Home Medications ?Medication ?Instructions ?Recorded ?Last Taken ?Type Milk Thistle 1 cap PO DAILY 06/02/20 01/09/25 History indapamide 2.5 mg tablet 2.5 mg PO DAILY 06/02/20 01/09/25 History magnesium glycinate 100 mg (as 400 mg PO DAILY 06/02/20 01/08/25 History glycinate) tablet melatonin-pyridoxine HCl (vitamin 1 ea PO QHS 06/02/20 01/08/25 History B6) 3 mg-10 mg tablet potassium citrate 10 mEq (1,080 20 meq PO DAILY 06/02/20 01/09/25 History mg) tablet,extended release adalimumab 40 mg/0.4 mL 40 mg subcut QWEEK 01/09/25 01/06/25 History subcutaneous pen kit (Humira(CF) Pen) empagliflozin 12.5 mg-metformin ER 2 tab PO DAILY 01/09/25 01/09/25 History 1,000 mg tablet,extended rel 24 hr (Synjardy XR) levothyroxine 112 mcg tablet 112 mcg PO MOTUWETHFRSA 01/09/25 01/09/25 History levothyroxine 112 mcg tablet 168 mcg PO HADLEY 01/09/25 01/07/25 History (Synthroid) lisinopril 2.5 mg tablet 2.5 mg PO QPM 01/09/25 01/08/25 History meclizine 25 mg tablet 25 mg PO TID PRN dizziness 7 days 01/09/25 Unknown Rx #20 tabs tirzepatide 12.5 mg/0.5 mL 12.5 mg subcut QWEEK 01/09/25 01/08/25 History subcutaneous pen injector (Mounjaro) Allergy/AdvReac Type Severity Reaction Status Date / Time gabapentin AdvReac NEEDS Verified 11/18/20 14:43 FOLLOW-UP methotrexate AdvReac NEEDS Verified 11/18/20 14:43 FOLLOW-UP Social History Smoking Status: Never smoker EXAM Physical Exam Const Vital Signs: 01/09/25 10:00 01/09/25 11:34 01/09/25 12:17 Temperature 97.8 F Temperature Source Temporal Pulse Rate 70 69 68 Respiratory Rate 16 18 16 Blood Pressure 170/78 H 156/70 H 137/67 H Blood Pressure Mean 108 98 90 Pulse Ox 100 100 100 Oxygen Delivery Method Room Air Room Air Room Air 01/09/25 13:03 Temperature Temperature Source Pulse Rate 64 Respiratory Rate 12 Blood Pressure 134/57 H Blood Pressure Mean 82 Pulse Ox 99 Oxygen Delivery Method Room Air [facility] Narrative Medical decision making narrative: HISTORY OF PRESENT ILLNESS: Chief complaint: Dizziness 69-year-old female history of type 2 diabetes, hypertension, hypothyroidism, vertigo presents with dizziness and blurred vision in both eyes. She states this began yesterday while getting a liver ultrasound. Notes 2 weeks of intermittent symptoms. Notes worsening symptoms with head movement and change in position. Denies falls or trauma. Denies loss of consciousness. Denies chest pain or shortness of breath or palpitations. Denies cough fever or chills. Denies urinary complaints. Denies focal weakness, loss sensation, loss of coordination. REVIEW OF SYSTEMS: Pertinent positives: Dizziness Pertinent negatives: As per HPI PHYSICAL EXAM: Nursing triage notes reviewed, Vital signs reviewed Constitutional: please see mdm HENT: MMM Eyes: Pupils equal round and reactive to light, Extraocular muscles intact Neck: No stridor, no JVD, full neck ROM Lungs: Clear to auscultation, No wheezing or rales. No increased work of breathing, no conversational dyspnea, no accessory muscle use, no nasal flaring. No respiratory distress noted Heart: Regular rate and rhythm, No murmurs, No rubs and No gallops, 2+ distal pulses (radial, femoral, posterior tibial) in all extremities Abdomen: Soft, there is no tenderness, rigidity, rebound or guarding, no obvious peritoneal signs, no palpable pulsatile abdominal masses, no auscultated abdominal bruit : No CVAT Extremities: No edema Neuro: Alert and oriented x3, neuro exam at baseline, cranial nerves II through XII are intact. No pain with extraocular muscle movement. There is negative test of skew. 5 of 5 strength in upper and lower extremities in flexion extension. Intact sensation to light touch in upper and lower extremity dermatomes. No truncal or extremity ataxia. No dysdiadochokinesia. Normal gait. 2+ reflexes in upper and lower extremities. No meningeal signs. Negative Babinski. NIH of 0. Positive Madeline-Hallpike on the left Skin: No rash or lesions noted MEDICAL DECISION MAKING: Chief Complaint: please see HPI External records reviewed: Reviewed prior imaging studies: Reviewed CT scan of the brain from 2019 which showed a normal head CT scan specifically no sign of acute infarction or hemorrhage Factors affecting care: As per HPI Social determinants of health: Denies drug use History obtained from others: Family friend Consults: none [facility] Narrative: The patient was initially hemodynamically stable, afebrile and nontoxic-appearing. Initial blood pressure was elevated 170/78. Initial neurologic exam without focal deficits. No obvious extremity or truncal ataxia. Initially assess gait secondary to acuity of condition prefer to treat the patient first before assessing her gait. I considered the following differential diagnosis: Peripheral vertigo, ICH, posterior circulation CVA, dehydration, anemia, electrolyte disturbance, arrhythmia, ACS I obtained a broad lab and imaging to further determine if the patient was suffering from a life-threatening etiology. Initially reassess the patient IV fluids, meclizine, Zofran The patient's exam was not consistent with posterior circulation CVA with NIH was 0 no signs of extremity or truncal ataxia ALL IMAGES (IF OBTAINED) HAVE BEEN PERSONALLY REVIEWED AND INTERPRETED BY MYSELF. I have personally reviewed the patient's chest x-ray. Chest x-ray is unremarkable for pulmonary edema, pneumothorax, pneumonia or focal cardiopulmonary abnormality. CT head negative for acute intracranial pathology CBC with no leukocytosis, noted hemoconcentration consistent with mild dehydration, no thrombocytopenia Urinalysis shows no evidence of urinary inflammation suggestive of UTI High-sensitivity troponin is negative, no evidence of myocardial ischemia x2 Lipase is wnl indicating no pancreatic inflammation. CMP without evidence of acute kidney injury, significant electrolyte abnormality, anion gap to suggest end organ hypo-perfusion, no evidence of metabolic acidosis with a normal bicarbonate, no evidence of hepatobiliary obstructive pathology. Upon re-evaluation patient's neurologic exam remained stable. She is able to walk with a non-ataxic gait. She is appropriate for discharge home with prescription for meclizine to treat peripheral vertigo as needed. ENT follow-up arranged. The patient and/or family, caregivers express understanding. The patient and/or family, caregivers agrees with the plan. Shared decision making: I will have a discussion with the patient and or visitors regarding risk/benefits of further testing or admission. They will be made aware of of the risk/benefits inherent in this decision they will be given the opportunity to voice understanding. Total critical care time today provided was at least 0 minutes. This excludes separately billable procedures. Critical care time (if documented) is secondary to the patient having high probability of clinically significant/life threatening deterioration in the patient's condition which required my urgent intervention. Impression: 1. Acute dizziness 2. Peripheral vertigo Dispo: Discharge home This note was generated with Damballa dictation software. It may contain incorrect words, spelling, and punctuation that were not noted in review of the chart prior to signing. Lab Data Labs: Laboratory Results - last 24 hr 01/09/25 01/09/25 01/09/25 11:00 11:30 13:15 WBC 6.8 RBC 5.05 Hgb 15.1 H Hct 44.5 MCV 88.1 MCH 29.9 MCHC 33.9 RDW Std Deviation 41.9 RDW Coeff of [place] 13.0 Plt Count 321 MPV 8.9 Immature Gran % (Auto) 0.300 Neut % (Auto) 45.2 L Lymph % (Auto) 43.7 H Leake % (Auto) 6.9 Eos % (Auto) 2.9 Baso % (Auto) 1.0 Absolute Neuts (auto) 3.1 Absolute Lymphs (auto) 2.97 Nucleated RBC % 0 Sodium 138 Potassium 4.3 Chloride 101 Carbon Dioxide 24.5 Anion Gap 13 BUN 17 Creatinine 0.61 L Est GFR (MDRD) Non-Af 97 BUN/Creatinine Ratio 27.3 H Glucose 101 H Calcium 10.2 Total Bilirubin 1.12 Direct Bilirubin 0.31 H AST 25 ALT 21 Alkaline Phosphatase 55 Troponin T High Sens < 6 Troponin T Hi Sens 2 Hr < 6 Total Protein 7.0 Albumin 4.3 Globulin 2.7 Lipase 32 Urine Color Yellow Urine Clarity Clear Urine pH 6.5 Ur Specific [place] 1.010 Urine Protein 15 H Urine Glucose (UA) 1000 H Urine Ketones Negative Urine Occult Blood 10 H Urine Nitrite Negative Urine Bilirubin Negative Urine Urobilinogen Normal Ur Leukocyte Esterase Negative Urine RBC 0 SEEN Urine WBC 0 SEEN Ur Squamous Epith Cells 0-5 SEEN Urine Bacteria 0 SEEN Urine Mucus 0 SEEN Radiography Chest X-Ray - ED: Read by ED Physician Diagnostic Testing: Clinical Impression(s) from Imaging Studies Brain CT 01/09/25 10:52 IMPRESSION: CHRONIC CHANGES. NO ACUTE FINDINGS. Reading Location: [facility] Chest X-Ray 01/09/25 11:05 IMPRESSION: No Acute Findings. Reading Location: [facility] Discharge Plan Triage Chief Complaint: Dizziness ED Provider: Marquez Merino Dx/Rx/DC Orders Instructions: ED BPV Vertigo Prescriptions: New meclizine 25 mg tablet 25 mg PO TID PRN (Reason: dizziness) 7 Days Qty: 20 0RF No Action indapamide 2.5 MG tablet 2.5 mg PO DAILY potassium citrate 10 MEQ tablet extended release 20 meq PO DAILY melatonin-pyridoxine HCl (B6) 1 EACH tablet 1 ea PO QHS magnesium glycinate 100 MG tablet 400 mg PO DAILY Milk Thistle 1 cap PO DAILY lisinopril 2.5 mg tablet 2.5 mg PO QPM levothyroxine 112 mcg tablet 112 mcg PO MOTUWETHFRSA Humira(CF) Pen 40 mg/0.4 mL pen injector kit 40 mg subcut QWEEK Mounjaro 12.5 mg/0.5 mL pen injector 12.5 mg subcut QWEEK levothyroxine [Synthroid] 112 mcg tablet 168 mcg PO HADLEY Synjardy XR 12.5-1,000 mg tablet, IR - ER, biphasic 24hr 2 tab PO DAILY Primary Care Provider: Jerald Rao Referrals: Jerald Rao MD [Primary Care Provider] - Robbi Barriga MD [Med Staff - Active Staff] - Activity Restrictions/Additional Instructions: Thank you for trusting us with your care today! Your labs images are reassuring. No sign of heart damage, heart failure, significant anemia, significant dehydration, intracranial issues were found on your workup. You are likely suffering from peripheral vertigo which was treated with oral meclizine Please take Tylenol (2 pills, 650 mg), ibuprofen (2 pills, 400 mg) every 6 hours as needed for pain and fever control. Please return to the emergency department if your symptoms change or worsen. Please follow with your primary care physician and ear nose and throat physician for further outpatient evaluation and management. Print Language: [place] Disposition Disposition: Home, Self Care
--- NOTE | 2025-01-09 10:52 | CT_ITS ---
PROCEDURE: BRAIN/HEAD WITHOUT CONTRAST 01/09/2025 REASON FOR EXAM: DIZZINESS TECHNIQUE: BRAIN/HEAD WITHOUT CONTRAST Coronal and Sagittal reconstruction series were provided. One or more dose reduction techniques were used (e.g., Automated exposure control, adjustment of the mA and/or kV according to patient size, use of iterative reconstruction technique. RADIATION DOSE SUMMARY: CTDlvol: 44.99 mGy DLP: 779.24 mGycm COMPARISON: Prior study dated June 02, 2020. FINDINGS: Brain: Within normal limits for age CSF Spaces: Mild generalized cerebral atrophy Sinuses/Mastoids: Clear at visualized levels Bones: No abnormality. CT/Brain/Head without Contrast IMPRESSION: CHRONIC CHANGES. NO ACUTE FINDINGS. Reading Location: [id number]
--- NOTE | 2025-01-09 10:53 | EKG12_ITS ---
Test Reason : Blood Pressure : */* mmHG Vent. Rate : 65 BPM Atrial Rate : 65 BPM P-R Int : 142 ms QRS Dur : 86 ms QT Int : 428 ms P-R-T Axes : 16 -15 44 degrees QTcB Int : 445 ms Normal sinus rhythm Normal ECG Confirmed by VIDHYA GRACIA ([id number]), editor in chief newspaper KAYLAH MENDOZA ([id number]) on 01/10/2025 1:54:49 PM Referred By: TA Confirmed By: VIDHYA GRACIA
[2025-01-09 11:05] LABS: Hematocrit 44.5 % (37-47); Hemoglobin 15.1 g/dL (12.0-15.0); Immature Granulocytes Count 0.020 X10^3/uL (0.0-0.0); Mean Corp Hgb Conc 33.9 g/dL (32-36); Mean Corpuscular Volume 88.1 fL (81-99); Mean Platelet Vol. 8.9 fl (6.2-12.0); NRBC Flagged by Analyzer 0 % (0-5); Platelet Count 321 K/mm3 (150-450); RBC Distribution Width CV 13.0 % (11.6-14.6); RBC Distribution Width SD 41.9 fl (35.1-43.9); Red Blood Count 5.05 M/mm3 (4.2-5.4); White Blood Count 6.8 K/mm3 (4.4-11.0)
--- NOTE | 2025-01-09 11:05 | RAD_ITS ---
PROCEDURE: CHEST 1 VIEW (PORTABLE) 01/09/2025 REASON FOR EXAM: DIZZINESS TECHNIQUE: Frontal view of the chest. COMPARISON: Prior study dated November 18, 2020. FINDINGS: Hardware: EKG electrodes are seen. Heart: Cardiac and mediastinal contours are stable. Lungs: The lungs are clear. Bones: The bones are unremarkable. Other: RAD/Chest 1 View (Portable) IMPRESSION: No Acute Findings. Reading Location: [id number]
[2025-01-09] MEDS: 0.9% Normal Saline (500mL Bag) 500 ML 1000 ML IV (11:14)
[2025-01-09] MEDS: Midazolam 2 MG/2 ML Syringe 0.5 MG IV (11:15)
[2025-01-09 11:30] LABS: Mucous, Urine 0 SEEN /hpf (<or=2+); Red Blood Cells-Urine 0 SEEN /hpf (0-5)
[2025-01-09 11:32] LABS: Color, Urine Yellow (Yellow); Glucose, Dipstick 1000 mg/dl (Normal); Ketone-Dipstick Negative (Negative); Leukocyte Esterase-Dipstick Negative /ul (Negative); Nitrite-Dipstick Negative (Negative); Occult Blood-Urine 10 /ul (Negative); Protein-Dipstick 15 mg/dl (Negative); Specific Gravity, Urine 1.010 (1.002-1.030); Urine Bilirubin Dipstick Negative (Negative)
[2025-01-09 11:34] VITALS: BP 156/70; PULSE 69; RESP 18; O2SAT 100
[2025-01-09 11:39] LABS: Squamous Epithelial Cells - UA 0-5 SEEN /hpf (5-10)
[2025-01-09 11:51] LABS: Troponin T High Sensitivity < 6 ng/L (<=14)
[2025-01-09 11:56] LABS: Lipase 32 U/L (13-75)
[2025-01-09 11:58] LABS: AST(SGOT) 25 U/L (<=31); Alanine Aminotransfer ALT/SGPT 21 U/L (<=34); Albumin, Serum 4.3 g/dL (3.4-4.8); Alkaline Phosphatase 55 U/L (35-104); Anion Gap 13 (5-15); BUN 17 mg/dL (4-19); BUN/Creat Ratio 27.3 RATIO (10-20); Bilirubin, Direct 0.31 mg/dL (0.00-0.30); Calcium,Total 10.2 mg/dL (7.6-11.0); Carbon Dioxide 24.5 mmol/L (21.0-32.0); Chloride 101 mmol/L (98-108); Globulin 2.7 g/dL (2.2-4.2); Glucose 101 mg/dL (70-99); Potassium 4.3 mmol/L (3.3-5.1)
[2025-01-09 12:17] VITALS: BP 137/67; PULSE 68; RESP 16; O2SAT 100
[2025-01-09 12:36] VITALS: BMI 27.8
[2025-01-09 13:03] VITALS: BP 134/57; PULSE 64; RESP 12; O2SAT 99
[2025-01-09 14:50] LABS: Troponin T High Sens 2 HR < 6 ng/L (<=14)
[2025-01-09 15:10] VITALS: BP 115/56; PULSE 71; RESP 16; TEMP 36.8; O2SAT 97
== END 2025-01-09 15:17 | disposition home or self-care (01) ==
PROVIDERS: Emergency Provider Emergency Medicine; PCP Family Medicine; Visit Provider Emergency Medicine
DX: H81.399 Other peripheral vertigo, unspecified ear (principal); E11.9 Type 2 diabetes mellitus without complications; Z79.4 Long term (current) use of insulin; I10 Essential (primary) hypertension; Z79.85 Long-term (current) use of injectable non-insulin antidiabetic drugs; Z79.84 Long term (current) use of oral hypoglycemic drugs; Z79.899 Other long term (current) drug therapy; Z85.850 Personal history of malignant neoplasm of thyroid; E03.9 Hypothyroidism, unspecified; Z79.890 Hormone replacement therapy
CPT/HCPCS: 70450; 71045; 80048; 80076; 81001; 83690; 84484; 85025; 93005; 96374; 96375; 99284; A4216; J2405

== ENCOUNTER → 2025-02-07 | Outpatient (CLI) | payer MEDICARE, BC, SELFPAY ==
--- NOTE | 2025-02-07 08:12 | BI_ITS ---
EXAM: SCRN MAMM (CAD)W/HARDIK BILAT DATE: 02/07/2025 CLINICAL HISTORY: F, Age 69 y/o , SCREEN No family history. TECHNIQUE: Procedure Code: [id number] Modality: MG Procedure: SCRN MAMM (CAD)W/HARDIK BILAT COMPARISON: Prior exam(s) dated July 06, 2022.. FINDINGS: TISSUE DENSITY: The breasts are almost entirely fatty. Bilateral Breast Mammographic Findings: No significant masses, calcifications or other abnormalities are identified. No suspicious masses, areas of developing architectural distortion, or suspicious calcifications. There has been no significant interval change. BI/SCRN MAMM (CAD)W/HARDIK BILAT IMPRESSION: Stable bilateral screening mammogram. OVERALL FINAL ASSESSMENT BI-RADS 1: NEGATIVE. RECOMMENDATION: Routine annual follow-up in 1 Year Additional Recommendation none A letter with findings and recommendations will be mailed to the patient. Reading Location: [place] [id number]
== END | disposition home or self-care (01) ==
LOC: OPBI 08:11
PROVIDERS: PCP Family Medicine; Referring Provider Family Medicine; Visit Provider Family Medicine
DX: Z12.31 Encounter for screening mammogram for malignant neoplasm of breast (principal)
CPT/HCPCS: 77063; 77067

== ENCOUNTER → 2025-02-20 | Outpatient (CLI) | payer MEDICARE, BC, SELFPAY ==
--- NOTE | 2025-02-20 09:31 | MRI_ITS ---
PROCEDURE: SPINE CERVICAL (ROUTINE) 02/20/2025 REASON FOR EXAM: PAIN, DEXTERITY AND BALANCE ISSUES TECHNIQUE: Procedure Code: MRISPC Modality: MR Procedure: SPINE CERVICAL (ROUTINE) Multiplanar and multisequence images were obtained without IV contrast administration. COMPARISON: None. FINDINGS: Vertebrae: Cervical vertebral body heights are preserved. Bone marrow signal is unremarkable. Alignment: Normal. No spondylolisthesis. Spinal Cord: Cervical spinal cord is of normal size and signal intensities. Structures at the foramen magnum are unremarkable. C2-3: Disc bulge. Facet joint arthropathy. No significant foraminal or canal stenosis. C3-4: Disc bulge. Facet joint arthropathy. Mild canal stenosis and mild bilateral foramina stenosis. C4-5: Disc osteophyte complex. Uncovertebral hypertrophy. Facet joint arthropathy. Severe left and moderate right foramina stenosis. Moderate canal stenosis. C5-6: Disc osteophyte complex. Uncovertebral hypertrophy. Facet joint arthropathy. Severe right and mild left foramina stenosis. Moderate canal stenosis. C6-7: Disc osteophyte complex. Uncovertebral hypertrophy. Moderate canal stenosis. [id number] bilateral foramina stenosis. C7-T1: Bilateral foraminal Tarlov cysts. No significant foraminal or canal stenosis. MRI/Spine Cervical (Routine) IMPRESSION: Degenerate changes, predominantly at C4-C5 and C5-C6 where there is moderate ca nal stenosis. Severe left foramina stenosis at C4-C5. Severe right foramina stenosis at C5-C6. Reading Location: [id number]
--- NOTE | 2025-02-20 09:31 | MRI_ITS ---
PROCEDURE: SPINE LUMBAR (ROUTINE) 02/20/2025 REASON FOR EXAM: RIGHT FOOT DROP TECHNIQUE: Procedure Code: MRISPL Modality: MR Procedure: SPINE LUMBAR (ROUTINE) COMPARISON: Lumbar spine x-ray 02/16/2025. FINDINGS: Vertebrae: Preserved in height and signal. Alignment: Normal. Conus Medullaris: None. L1-2: Unremarkable. L2-3: Unremarkable. L3-4: Disc bulge. A central disc protrusion measures 3 mm and annular fissure. Facet joint arthropathy with fluid effusion. Ligamentum flavum hypertrophy. Severe bilateral foramina stenosis and mass- effect upon the exiting nerves. Severe canal stenosis. L4-5: Disc desiccation. Disc bulge. A 3 mm central disc herniation and annular fissure. Facet joint arthropathy. Severe bilateral foramina stenosis and mass-effect upon the exiting nerves. Severe canal stenosis. L5-S1: Disc bulge asymmetric to the right. Facet joint arthropathy. Severe right foramina stenosis and mass-effect upon the exiting right L5 nerve. Mild left foramina stenosis. No canal stenosis. Sacrum: Unremarkable. A 4 cm cyst at the midpole of the left kidney. MRI/Spine Lumbar (Routine) IMPRESSION: Degenerate changes at L3-L4, L4-L5 and L5-S1. Severe canal stenosis and severe bilateral foramina stenosis at L3-L4 and L4-L5 . Please read findings for further details. Reading Location: [facility]
--- NOTE | 2025-02-20 09:31 | MRI_ITS ---
PROCEDURE: SPINE LUMBAR (ROUTINE) 02/20/2025 REASON FOR EXAM: RIGHT FOOT DROP TECHNIQUE: Procedure Code: MRISPL Modality: MR Procedure: SPINE LUMBAR (ROUTINE) COMPARISON: Lumbar spine x-ray 02/16/2025. FINDINGS: Vertebrae: Preserved in height and signal. Alignment: Normal. Conus Medullaris: None. L1-2: Unremarkable. L2-3: Unremarkable. L3-4: Disc bulge. A central disc protrusion measures 3 mm and annular fissure. Facet joint arthropathy with fluid effusion. Ligamentum flavum hypertrophy. Severe bilateral foramina stenosis and mass- effect upon the exiting nerves. Severe canal stenosis. L4-5: Disc desiccation. Disc bulge. A 3 mm central disc herniation and annular fissure. Facet joint arthropathy. Severe bilateral foramina stenosis and mass-effect upon the exiting nerves. Severe canal stenosis. L5-S1: Disc bulge asymmetric to the right. Facet joint arthropathy. Severe right foramina stenosis and mass-effect upon the exiting right L5 nerve. Mild left foramina stenosis. No canal stenosis. Sacrum: Unremarkable. A 4 cm cyst at the midpole of the left kidney. MRI/Spine Lumbar (Routine) IMPRESSION: Degenerate changes at L3-L4, L4-L5 and L5-S1. Severe canal stenosis and severe bilateral foramina stenosis at L3-L4 and L4-L5 . Please read findings for further details. Reading Location: [facility]
== END | disposition home or self-care (01) ==
LOC: MRI 09:23
PROVIDERS: PCP Family Medicine; Referring Provider Student in an Organized Health Care Education/Training Program; Visit Provider Student in an Organized Health Care Education/Training Program
DX: M54.12 Radiculopathy, cervical region (principal); G95.9 Disease of spinal cord, unspecified; M21.371 Foot drop, right foot; M51.362 Other intervertebral disc degeneration, lumbar region with discogenic back pain and lower extremity pain
CPT/HCPCS: 72141; 72148